=== PATIENT | female | born 1945 | race Caucasian/White ===

== ENCOUNTER 2017-12-28 11:09 | Observation (INO) | payer MEDICARE, OTHER ==
[2017-12-28] MEDS ORDERED: Acetaminophen 325 MG Tab PO PRN (11:40)
[2017-12-28] MEDS ORDERED: Docusate Sodium 100 MG Cap PO PRN (11:40)
[2017-12-28] MEDS ORDERED: Sodium Chloride 0.9% 10 ML Syringe FLUSH PRN (11:40)
[2017-12-28] MEDS ORDERED: cloNIDine 0.1 MG Tab PO STA (11:40)
[2017-12-28] MEDS ORDERED: Enoxaparin 30 MG/0.3 ML Syringe SUBCUT SCH (11:45)
[2017-12-28 12:29] LABS: CHLORIDE,CL 99 mEq/L (98-106); SODIUM,NA 139 mEq/L (136-145)
[2017-12-28] MEDS ORDERED: rOPINIRole 0.25 MG Tab PO SCH (14:00)
[2017-12-28] MEDS ORDERED: Albuterol 8 GM Inhaler INH PRN (14:12)
[2017-12-28] MEDS: ROPINIROLE 0.25 MG PO SCH (20:09)
[2017-12-29] MEDS ORDERED: LEVOTHYROXINE 100 MCG PO SCH (07:00)
[2017-12-29] MEDS: ROPINIROLE 0.25 MG PO SCH (07:47)
[2017-12-29 07:50] VITALS: BP 156/65
[2017-12-29] MEDS ORDERED: Calcium Carbonate 500 MG Tab.Chew PO SCH (08:00)
[2017-12-29] MEDS ORDERED: ASPIRIN 81 MG TAB **PTOM PO SCH (08:00)
[2017-12-29] MEDS ORDERED: amLODIPine 2.5 MG Tab PO SCH (08:00)
[2017-12-29] MEDS ORDERED: METOPROLOL SUCCINATE 12.5 MG PO SCH (08:00)
[2017-12-30] MEDS ORDERED: Enoxaparin 30 MG/0.3 ML Syringe SUBCUT SCH (08:00)
--- NOTE | 2018-01-01 21:05 | PCM.DCSUM1 ---
Discharge Summary - Hospital Course Free Text/Narrative:: Patient presented to clinic with complaints of high blood pressure. Had been experiencing a headache, monitoring her blood pressure and noted BP to be up over 170/100. She relates has been on multiple blood pressure medications over the years. Had an aortic valve replacement last year and since then, Metoprolol has not been keeping her blood pressure under control. She typically sees Dr. Bowman her director public service for monitoring of her heart valve and blood pressure. Patient denied chest pain or shortness of breath. Initial lab work up negative. Given dose of Clonidine on admit, which did improve her blood pressure and started on NOrvasc. Renal artery ultrasound ordered. - Discharge Data Discharge Date: 12/29/17 Discharge Disposition: Home, Self-Care 01 Condition: Good - Patient Summary/Data Complications: none Hospital Course: Patient has had good improvement of her blood pressure. Given Clonidine one dose and started on Norvasc. Headache resolved. This am, blood pressure 156/ 65. Lab work essentially negative. Renal ultrasound accomplished and negative. Is up and ambulatory without any chest pain or shortness of breath. Will discharge home on Norvasc in addition to her usual meds. Continue to monitor blood pressure and follow up with Lizz Thomas next week. - Patient Instructions Diet: Heart Healthy Diet Activity: As Tolerated - Discharge Plan Prescriptions/Med Rec: amLODIPine [Norvasc] 5 mg PO DAILY #30 tablet Home Medications: Home Meds Levothyroxine [Synthroid] 100 mcg PO ACBREAKFAST 07/31/15 [History] rOPINIRole HCl [Requip] 0.25 mg PO TID 07/31/15 [History] Albuterol Sulfate [Proair Respiclick] 90 mcg INH ASDIRECTED PRN 09/16/16 [ History] Aspirin [Halfprin] 81 mg PO DAILY 09/16/16 [History] Cetirizine [ZyrTEC] 10 mg PO BID 09/16/16 [History] Ascorbic Acid [Vitamin C] 1,000 mg PO BID 12/28/17 [History] Calcium Citrate 1 tab PO DAILY 12/28/17 [History] Cholecalciferol (Vitamin D3) [Vitamin D3] 1,000 unit PO BID 12/28/17 [History] [place] [[place]] 3 cap PO TID 12/28/17 [History] Kelp 660 mg PO BID 12/28/17 [History] Lactobacillus Acidophilus [Acidophilus] 1 each PO DAILY 12/28/17 [History] Magnesium Oxide [Magnesium] 500 mg PO DAILY 12/28/17 [History] Metoprolol Succinate [Toprol XL] 12.5 mg PO DAILY 12/28/17 [History] [place] Extract 75 mg PO TID 12/28/17 [History] Selenium 100 mcg PO BID 12/28/17 [History] amLODIPine [Norvasc] 5 mg PO DAILY #30 tablet 12/29/17 [Rx] Patient Handouts: Hypertension Referrals: Lizz Thomas PA-C [ED Midlevel Provider] - (follow up with Lizz Thomas in one week) - Discharge Summary/Plan Comment DC Time >30 min.: No Discharge Summary/Plan Comment: Discharge home on Norvasc 5 mg in addition to her usual meds. Follow up with Lizz Thomas next week. Continue to keep log of blood pressures - General Info Date of Service: 12/29/17 Admission Dx/Problem (Free Text: Hypertensive Urgency Functional Status: Reports: Pain Controlled, Tolerating Diet, Ambulating - Review of Systems General: Denies: Fever, Weakness, Fatigue HEENT: Reports: No Symptoms Pulmonary: Denies: Shortness of Breath, Cough Cardiovascular: Denies: Chest Pain, Edema, Lightheadedness Gastrointestinal: Denies: Abdominal Pain, Nausea, Vomiting Genitourinary: Reports: No Symptoms Musculoskeletal: Reports: No Symptoms Skin: Reports: No Symptoms Neurological: Denies: Headache - Patient Data Vitals - Most Recent: Last Vital Signs Temp 96.1 F 12/29/17 08:00 Pulse 64 12/29/17 08:00 Resp 18 12/29/17 08:00 BP 156/65 H 12/29/17 08:00 Pulse Ox 99 12/29/17 08:00 Weight - Most Recent: 169 lb Med Orders - Current: Current Medications Discontinued Medications Acetaminophen (Tylenol) 650 mg PO Q4H PRN PRN Reason: Pain (Mild 1-3)/fever Albuterol (Ventolin Hfa) 0 gm INH Q4H PRN PRN Reason: Shortness of Breath Amlodipine Besylate (Norvasc) 5 mg PO DAILY [facility] Last Admin: 12/29/17 07:48 Dose: 5 mg Calcium Carbonate/Glycine (Tums) 500 mg PO DAILY [facility] Last Admin: 12/29/17 07:49 Dose: 500 mg Clonidine HCl (Catapres) 0.1 mg PO NOW STA Stop: 12/28/17 11:41 Last Admin: 12/28/17 12:48 Dose: 0.1 mg Docusate Sodium (Colace) 100 mg PO BID PRN PRN Reason: Constipation Enoxaparin Sodium (Lovenox) 30 mg SUBCUT Q24H [facility] Last Admin: 12/28/17 14:27 Dose: 30 mg Enoxaparin Sodium (Lovenox) 30 mg SUBCUT DAILY@0800 [facility] Magnesium Oxide (Magnesium Oxide) 500 mg PO DAILY [facility] Last Admin: 12/29/17 07:50 Dose: 500 mg Aspirin 81 Mg Tab (Ptom) 1 each PO DAILY [facility] Last Admin: 12/29/17 07:49 Dose: 1 each Levothyroxine 100 (Mcg Tab Ptom) 1 each PO ACBREAKFAST [facility] Last Admin: 12/29/17 06:51 Dose: 1 each Metoprolol Succinate 12.5 Mg Tab Er Ptom 0.5 each PO DAILY [facility] Last Admin: 12/29/17 07:49 Dose: 0.5 each Ropinirole 0.25 Mg (Tab Ptom) 0.25 each PO TID [facility] Last Admin: 12/29/17 07:47 Dose: 0.25 each Ropinirole HCl (Requip) 0.25 mg PO TID [facility] Last Admin: 12/28/17 16:25 Dose: 0.25 mg Sodium Chloride (Saline Flush) 10 ml FLUSH ASDIRECTED PRN PRN Reason: Keep Vein Open - Exam General: Reports: Alert, Oriented HEENT: Reports: Mucous Membr. Moist/[place] Neck: Reports: Supple Lungs: Reports: Clear to Auscultation, Normal Respiratory Effort Cardiovascular: Reports: Regular Rate, Regular Rhythm, Other (click from valve) GI/Abdominal Exam: Normal Bowel Sounds, Soft, Non-Tender Extremities: Normal Inspection, No Pedal Edema Skin: Reports: Warm, Dry Neurological: Reports: No New Focal Deficit *Q Meaningful Use (DIS) - VTE *Q VTE Criteria *Q: - Stroke *Q Stroke Criteria *Q: - AMI *Q AMI Criteria *Q:
== END 2017-12-29 11:53 | disposition home or self-care (01) ==
LOC: CC.MS 11:09 → UNDOADMOB 11:09 → CC.MS 11:40
PROVIDERS: ADMIT Physician Assistant Medical; ATTEND Family Medicine
DX: I10 Essential (primary) hypertension (principal); E78.5 Hyperlipidemia, unspecified; E03.9 Hypothyroidism, unspecified; J45.909 Unspecified asthma, uncomplicated; Z79.82 Long term (current) use of aspirin; Z79.899 Other long term (current) drug therapy; Z88.2 Allergy status to sulfonamides; Z88.8 Allergy status to other drugs, medicaments and biological substances; Z72.0 Tobacco use; Z95.2 Presence of prosthetic heart valve
CPT/HCPCS: 36415; 80053; 81001; 82550; 84443; 84484; 85025; 93005; 93975; 96372; A9270 ×6; G0378 ×2; J1650

== ENCOUNTER 2019-06-05 13:50 | Emergency (ER) | payer MEDICARE, OTHER ==
[2019-06-05 14:16] LABS: CHLORIDE,CL 96 mEq/L (98-106); SODIUM,NA 131 mEq/L (136-145)
[2019-06-05] MEDS ORDERED: Metoprolol Tartrate 5 MG/5 ML SDV IVPUSH ONE (14:32)
[2019-06-05] MEDS ORDERED: Aspirin 300 MG Supp RECTAL SCH (15:45)
--- NOTE | 2019-06-05 15:49 | EDM.PDOC ---
ED HPI GENERAL MEDICAL PROBLEM - General Chief Complaint: Neuro Symptoms/Deficits Stated Complaint: left side facial droop Time Seen by Provider: 06/05/19 14:10 Source of Information: Reports: Patient, Family - History of Present Illness INITIAL COMMENTS - FREE TEXT/NARRATIVE: Gege is a pleasant 73 year old female who presents to the ED via private vehicle with with c/o left sided facial droop, slurred speech, and weakness. Unknown last well. reports he noticed she was very weak last night and then earlier this morning he noticed that she had facial droop and was slurring her speech more. He reports she struggled to get up from chair. This was "maybe" around 10:30. He was concerned about stroke, prompting ED visit. She reports she feels she is having to "work harder to speak." NIH 5. GCS 15. Denies any chest pain, shortness of breath, N/V/D, urinary symptoms, fever, chills, cough. Does report her legs feel very weak. Patient does not meet TPA criteria as she has unknown last well. Onset: Unknown/Unsure Associated Symptoms: Denies: Confusion, Chest Pain, Cough, cough w sputum, Diaphoresis, Fever/Chills, Headaches, Loss of Appetite, Malaise, Nausea/Vomiting , Rash, Seizure, Shortness of Breath, Syncope, Weakness - Related Data Allergies Allergy/AdvReac Type Severity Reaction Status Date / Time Sulfa (Sulfonamide Allergy Hives Verified 06/05/19 14:28 Antibiotics) thiopental sodium Allergy Shortness Verified 06/05/19 14:28 [From Pentothal] of Breath Home Meds: Home Meds Levothyroxine [Synthroid] 100 mcg PO ACBREAKFAST 07/31/15 [History] rOPINIRole HCl [Requip] 0.25 mg PO TID 07/31/15 [History] Albuterol Sulfate [Proair Respiclick] 90 mcg INH ASDIRECTED PRN 09/16/16 [ History] Aspirin [Halfprin] 81 mg PO DAILY 09/16/16 [History] Cetirizine [ZyrTEC] 10 mg PO BID 09/16/16 [History] Ascorbic Acid [Vitamin C] 1,000 mg PO BID 12/28/17 [History] Calcium Citrate 1 tab PO DAILY 12/28/17 [History] Cholecalciferol (Vitamin D3) [Vitamin D3] 1,000 unit PO BID 12/28/17 [History] [place] [[place]] 3 cap PO TID 12/28/17 [History] Kelp 660 mg PO BID 12/28/17 [History] Lactobacillus Acidophilus [Acidophilus] 1 each PO DAILY 12/28/17 [History] Magnesium Oxide [Magnesium] 500 mg PO DAILY 12/28/17 [History] [place] Extract 75 mg PO TID 12/28/17 [History] Selenium 100 mcg PO BID 12/28/17 [History] Metoprolol Tartrate 25 mg PO BID 06/05/19 [History] Past Medical History HEENT History: Reports: Impaired Vision Cardiovascular History: Reports: Heart Murmur, Hypertension, Other (See Below) Other Cardiovascular History: aortic valve stenosis; had a valve that was malfunctioning, "racing heart", patient requested that they do it through [facility] procedure; Respiratory History: Reports: Asthma Genitourinary History: Reports: Urinary Incontinence [employer]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: Musculoskeletal History: Reports: Arthritis Neurological History: Reports: CVA, Neuropathy, Peripheral, Other (See Below) Other Neuro History: Dec 2015 Psychiatric History: Reports: Anxiety, Depression Other Psychiatric History: says she has some depression; 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, 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, 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 [employer] Endocrine/Metabolic History: Reports: Hypothyroidism - Past Surgical History Cardiovascular Surgical History: Reports: Valve Replacement Respiratory Surgical History: Reports: None GI Surgical History: Reports: Appendectomy Female Surgical History: Reports: Section, Hysterectomy Social & Family History - Family History Family Medical History: Noncontributory - Tobacco Use Smoking Status *Q: Never Smoker - Caffeine Use Caffeine Use: Reports: None - Recreational Drug Use Recreational Drug Use: No ED ROS GENERAL - Review of Systems Review Of Systems: See Below Constitutional: Reports: Weakness. Denies: Fever, Malaise, Fatigue, Decreased Appetite HEENT: Denies: Vertigo, Vision Change Respiratory: Denies: Shortness of Breath, Wheezing, Pleuritic Chest Pain, Cough , Sputum Cardiovascular: Reports: Blood Pressure Problem, Lightheadedness. Denies: Chest Pain, Claudication, Dyspnea on Exertion, Edema, Orthopnea, Palpitations, PND, Syncope Endocrine: Denies: Fatigue GI/Abdominal: Reports: No Symptoms. Denies: Abdominal Pain, Diarrhea, Decreased Appetite, Hematochezia, Melena, Nausea, Vomiting : Reports: No Symptoms. Denies: Dysuria, Frequency, Urgency Musculoskeletal: Reports: No Symptoms Skin: Reports: No Symptoms Neurological: Reports: Dizziness, Numbness, Tingling, Trouble Speaking, Difficulty Walking, Weakness, Change in Speech, Gait Disturbance. Denies: Confusion, Headache Psychiatric: Reports: No Symptoms Hematologic/Lymphatic: Reports: No Symptoms Immunologic: Reports: No Symptoms ED EXAM, NEURO - Physical Exam Exam: See Below Exam Limited By: No Limitations General Appearance: Alert, WD/WN, No Apparent Distress Eye Exam: Bilateral Eye: EOMI, Normal Fundi, Normal Inspection, PERRL Throat/Mouth: Normal Inspection, Normal Lips, Normal Teeth, Normal Gums, Normal Oropharynx, Normal Voice, No Airway Compromise Head Exam: Atraumatic, Normocephalic Neck: Normal Inspection, Supple, Non-Tender, Full Range of Motion Respiratory/Chest: No Respiratory Distress, Lungs Clear, Normal Breath Sounds, No Accessory Muscle Use, Chest Non-Tender Cardiovascular: Normal Peripheral Pulses, Regular Rate, Rhythm, No Edema, No Gallop, No JVD, No Murmur, No Rub GI/Abdominal: Normal Bowel Sounds, Soft, Non-Tender, No Organomegaly, No Distention, No Abnormal Bruit, No Mass Neurological: Alert, Normal Mood/Affect, CN II-XII Intact, Oriented x 3, Abnormal Gait, Ataxia (LUE & LLE), Abnormal Finger to Nose (LUE), Abnormal Sensation (LUE & LLE), Abnormal Pin Prick (LUE & LLE), Difficulty Walking ( weakness). No: Abnormal Motor Back Exam: Normal Inspection, Full Range of Motion. No: CVA Tenderness (L), CVA Tenderness (R) Extremities: Normal Inspection, Normal Range of Motion, Non-Tender, No Pedal Edema, Normal Capillary Refill Psychiatric: Normal Affect, Normal Mood Skin Exam: Warm, Dry, Intact, Normal Color, No Rash Course - Vital Signs Last Recorded V/S: Last Vital Signs Temp 97.3 F 06/05/19 13:50 Pulse 60 06/05/19 16:38 Resp 16 06/05/19 16:38 BP 195/112 H 06/05/19 16:38 Pulse Ox 98 06/05/19 16:38 - Orders/Labs/Meds Orders: Active Orders 24 hr Category Date Time Status Communication Order [RC] ROUTINE Care 06/05/19 15:57 Active Head wo Cont [CT] Stat Exams 06/05/19 13:23 Taken Labs: Laboratory Tests 06/05/19 06/05/19 06/05/19 Range/Units 13:21 13:21 13:21 WBC 10.3 H (5.0-10.0) 10^3/uL RBC 4.52 (4.00-5.50) 10^6/uL Hgb 12.9 (12.0-16.0) g/dL Hct 39.6 (37.0-47.0) % MCV 87.6 (82.0-94.0) fL MCH 28.5 (27.0-32.0) pg MCHC 32.6 L (33.0-38.0) g/dL RDW Coeff of Bryson 13.2 (11.0-15.0) % Plt Count 322 (150-400) 10^3/uL Neut % (Auto) 78.0 (35-85) % Lymph % (Auto) 10.6 (10-55) % Angelina % (Auto) 7.8 (0-16) % Eos % (Auto) 2.8 (0-5) % Baso % (Auto) 0.8 (0-3) % Neut # (Auto) 8.05 H (1.80-7.00) 10^3/uL Lymph # (Auto) 1.10 (1.00-4.80) 10^3/uL Angelina # (Auto) 0.81 H (0.00-0.80) 10^3/uL Eos # (Auto) 0.29 (0.00-0.45) 10^3/uL Baso # (Auto) 0.08 10^3/uL PT 10.0 (9.7-12.3) SEC INR 0.97 (0.92-1.18) APTT 26.8 (23.2-32.3) SEC Sodium 131 L (136-145) mEq/L Potassium 4.4 (3.5-5.0) mEq/L Chloride 96 L (98-106) mEq/L Carbon Dioxide 29 (21-32) mmol/L BUN 10 (7-18) mg/dL Creatinine 0.5 L (0.6-1.0) mg/dL Est Cr Clr Drug Dosing TNP Estimated GFR (MDRD) > 60 (>=60) mL/min Glucose 99 (75-99) mg/dL Calcium 9.0 (8.4-10.1) mg/dL Creatine Kinase 49 (21-215) U/L Troponin I < 0.017 (0.00-0.06) ng/mL Meds: Medications Discontinued Medications Generic Name Dose Route Start Last Admin Trade Name Frankie PRN Reason Stop Dose Admin Aspirin 300 mg 06/05/19 15:45 06/05/19 16:02 Aspirin RECTAL 300 mg STAT FLASH Administration Metoprolol Tartrate 5 mg 06/05/19 14:32 06/05/19 14:46 Lopressor IVPUSH 06/05/19 14:33 5 mg ONETIME ONE Administration - Radiology Interpretation Free Text/Narrative:: No acute intracranial hemorrhage. Extensive patchy white matter hypoattenuation s present but nonspecific but most likely represents chronic microvascular change. Recommend MRI. CT Results Date: 06/05/19 CT Results Time: 15:27 - Re-Assessments/Exams Free Text/Narrative Re-Assessment/Exam: 06/05/19 15:[address] results with patient. Discussed despite being negative, I have strong suspicion for CVA and would highly recommend transfer to facility capable of MRI brain and neuro consult. 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 Consulted with [facility] hospitalist Dr. Barros who accepted patient for transfer. Discussed risks and benefits of transfer with patient. Risks of transfer include worsening of condition, , and MVA. Benefits of transfer include higher level of care, MRI capabilities, neuro consultation. Risks of nontransfer include worsening of condition, , and no MRI/neuro services. Benefits of nontransfer include convenience and familiar environment. Patient verbalized understanding and was agreeable to transfer. Discussed code status with patient. She wishes to be code level I. Departure - Departure Time of Disposition: 16:53 Disposition: DC/Tfer to [facility] 02 Condition: Fair Clinical Impression: CVA (cerebral vascular accident) Qualifiers: CVA mechanism: unspecified Qualified Code(s): I63.9 - Cerebral infarction, unspecified - Discharge Information *PRESCRIPTION DRUG MONITORING PROGRAM REVIEWED*: Not Applicable *COPY OF PRESCRIPTION DRUG MONITORING REPORT IN PATIENT KANDICE: Not Applicable Referrals: Lizz Thomas PA-C [Primary Care Provider] - Forms: ED Department Discharge - Problem List & Annotations (1) CVA (cerebral vascular accident) SNOMED Code(s): 286506251 Code(s): I63.9 - CEREBRAL INFARCTION, UNSPECIFIED Status: Acute Qualifiers: CVA mechanism: unspecified Qualified Code(s): I63.9 - Cerebral infarction, unspecified (2) Hypertension SNOMED Code(s): 64634558 Code(s): I10 - ESSENTIAL (PRIMARY) HYPERTENSION Status: Chronic Qualifiers: Hypertension type: essential hypertension Qualified Code(s): I10 - Essential (primary) hypertension - Problem List Review Problem List Initiated/Reviewed/Updated: Yes - My Orders Last 24 Hours: My Active Orders 06/05/19 13:23 Head wo Cont [CT] Stat 06/05/19 15:57 Communication Order [RC] ROUTINE - Assessment/Plan Last 24 Hours: My Active Orders 06/05/19 13:23 Head wo Cont [CT] Stat 06/05/19 15:57 Communication Order [RC] ROUTINE Plan: Patient's NIH remained 5 and GCS remained 15 throughout ED stay. BP did improve following Lopressor. VSS throughout stay. Did receive 300 mg aspirin via rectal suppository. Patient not candidate for TPA or other thinners due to unknown last well. Patient kept NPO due to slurred speech, facial droop, and dysphagia. CT negative for acute hemorrhage or ischemia. Given high clinical concern, will be transferred to [facility] via [facility] ALS services.
[2019-06-05 16:38] VITALS: BP 195/112; PULSE 60
== END 2019-06-05 16:53 ==
LOC: CC.ED 13:50
DX: I63.9 Cerebral infarction, unspecified (principal); I10 Essential (primary) hypertension; J45.909 Unspecified asthma, uncomplicated; F41.9 Anxiety disorder, unspecified; F32.9 Major depressive disorder, single episode, unspecified; E03.9 Hypothyroidism, unspecified; Z88.2 Allergy status to sulfonamides; Z88.4 Allergy status to anesthetic agent; Z79.899 Other long term (current) drug therapy; Z79.82 Long term (current) use of aspirin; Z86.73 Personal history of transient ischemic attack (TIA), and cerebral infarction without residual deficits
CPT/HCPCS: 36415; 70450; 80048; 82550; 84484; 85025; 85610; 85730; 93005; 96374; 99285; A9270; J3490; 93010

== ENCOUNTER 2019-07-22 17:17 | Emergency (ER) | payer MEDICARE, OTHER ==
[2019-07-22] MEDS ORDERED: Aspirin 81 MG Tab.Chew PO ONE (17:32)
[2019-07-22 18:01] LABS: CHLORIDE,CL 100 mEq/L (98-106); SODIUM,NA 137 mEq/L (136-145)
[2019-07-22 18:05] VITALS: BP 186/94; PULSE 88
--- NOTE | 2019-07-22 19:18 | EDM.PDOC ---
ED HPI GENERAL MEDICAL PROBLEM - General Chief Complaint: Chest Pain Stated Complaint: Chest Pain Time Seen by Provider: 07/22/19 18:02 Source of Information: Reports: Patient History Limitations: Reports: No Limitations - History of Present Illness INITIAL COMMENTS - FREE TEXT/NARRATIVE: This patient is a 73 year old female that presents to the ER. Patient reports that since Tuesday she has had some mild congestion, drainage, productive cough. She reports that on she was seen by her PCP, dx with bronchitis , placed on abx. She reports then Tuesday she bent backwards while on her walker trying to grab something and then felt like she pulled a muscle to her right chest. The patient reports it hurt to take big deep breaths. She reports then yesterday she was coughing and then her right and central chest hurt when she coughs or takes big deep breaths now. Patient reports she has felt chills. The patient denies owen, dizziness, n, v, d, measured fever, shortness of breath, neck pain, neck stiffness, abd pain, urinary/bowel changes. Onset Date: 07/18/19 Duration: Day(s): (4) Location: Reports: Chest Severity: Mild Improves with: Reports: None Worsens with: Reports: Breathing (taking big deep breaths) Associated Symptoms: Reports: Chest Pain, Cough, cough w sputum, Fever/Chills. Denies: Confusion, Diaphoresis, Headaches, Loss of Appetite, Malaise, Rash, Seizure, Shortness of Breath, Syncope, Weakness - Related Data Allergies Allergy/AdvReac Type Severity Reaction Status Date / Time Sulfa (Sulfonamide Allergy Hives Verified 07/22/19 17:46 Antibiotics) thiopental sodium Allergy Shortness Verified 07/22/19 17:46 [From Pentothal] of Breath Home Meds: Home Meds Levothyroxine [Synthroid] 100 mcg PO ACBREAKFAST 07/31/15 [History] rOPINIRole HCl [Requip] 0.25 mg PO TID 07/31/15 [History] Albuterol Sulfate [Proair Respiclick] 90 mcg INH ASDIRECTED PRN 09/16/16 [ History] Aspirin [Halfprin] 81 mg PO DAILY 09/16/16 [History] Cetirizine [ZyrTEC] 10 mg PO BID 09/16/16 [History] Ascorbic Acid [Vitamin C] 1,000 mg PO BID 12/28/17 [History] Calcium Citrate 1 tab PO DAILY 12/28/17 [History] Cholecalciferol (Vitamin D3) [Vitamin D3] 1,000 unit PO BID 12/28/17 [History] Caspar [Caspar Reeves] 3 cap PO TID 12/28/17 [History] Kelp 660 mg PO BID 12/28/17 [History] Lactobacillus Acidophilus [Acidophilus] 1 each PO DAILY 12/28/17 [History] Magnesium Oxide [Magnesium] 500 mg PO DAILY 12/28/17 [History] [place] [address] Extract 75 mg PO TID 12/28/17 [History] Selenium 100 mcg PO BID 12/28/17 [History] Metoprolol Tartrate 50 mg PO BID 06/05/19 [History] Cefuroxime [Ceftin] 250 mg PO BID 07/22/19 [History] Cilostazol 100 mg PO BID 07/22/19 [History] Past Medical History HEENT History: Reports: Impaired Vision Cardiovascular History: Reports: Heart Murmur, Hypertension, Other (See Below) Other Cardiovascular History: aortic valve stenosis; had a valve that was malfunctioning, "racing heart", patient requested that they do it through MELANIE procedure; Respiratory History: Reports: Asthma Other Respiratory History: recent pneumonia dx by mateus kenyon at clinic Genitourinary History: Reports: Urinary Incontinence 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: Reports: Musculoskeletal History: Reports: Arthritis Neurological History: Reports: CVA, Neuropathy, Peripheral, Other (See Below) Other Neuro History: Dec 2015 Psychiatric History: Reports: Anxiety, Depression Other Psychiatric History: says she has some depression; 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, 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, 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 Denies: Fever, Weakness, Fatigue HEENT: Reports: Rhinitis, Sinus Problem Respiratory: Reports: Pleuritic Chest Pain, Cough, Sputum. Denies: Shortness of Breath, Wheezing Cardiovascular: Reports: No Symptoms. Denies: Chest Pain, Dyspnea on Exertion, Edema, Lightheadedness, Palpitations, Syncope Endocrine: Reports: No Symptoms GI/Abdominal: Reports: No Symptoms : Reports: No Symptoms Musculoskeletal: Reports: No Symptoms Skin: Reports: No Symptoms Neurological: Reports: No Symptoms Psychiatric: Reports: No Symptoms Hematologic/Lymphatic: Reports: No Symptoms Immunologic: Reports: No Symptoms ED EXAM, GENERAL - Physical Exam Exam: See Below Exam Limited By: No Limitations General Appearance: Alert, WD/WN, No Apparent Distress Eye Exam: Bilateral Eye: Normal Inspection, PERRL Ears: Normal External Exam, Normal Canal, Hearing Grossly Normal, Normal TMs Ear Exam: Bilateral Ear: Auricle Normal, Canal Normal, TM normal Nose: Normal Inspection, Normal Mucosa, No Blood Throat/Mouth: Normal Inspection, Normal Lips, Normal Teeth, Normal Gums, Normal Oropharynx, Normal Voice, No Airway Compromise Head: Atraumatic, Normocephalic Neck: Normal Inspection, Supple, Non-Tender, Full Range of Motion Respiratory/Chest: No Respiratory Distress, Lungs Clear, Normal Breath Sounds, No Accessory Muscle Use, Other (mild tenderness right lateral chest. Easily manipulated and made worse with palpation or having patient take big deep breath or when she coughs.). No: Decreased Breath Sounds, Crackles, Rales, Rhonchi, Wheezing, Stridor, Pleural Rub, Accessory Muscle Use, Retractions, Splinting, Prolonged Expiration Cardiovascular: Normal Peripheral Pulses, Regular Rate, Rhythm, No Edema, No Gallop, No JVD, No Murmur, No Rub Peripheral Pulses: 2+: Radial (L), Radial (R), Posterior Tibial (L), Posterior Tibial (R) GI/Abdominal: Normal Bowel Sounds, Soft, Non-Tender, No Organomegaly, No Distention, No Abnormal Bruit, No Mass (Female) Exam: Deferred Rectal (Female) Exam: Deferred Back Exam: Normal Inspection, Full Range of Motion Extremities: Normal Inspection, Normal Range of Motion, Non-Tender, No Pedal Edema, Normal Capillary Refill Neurological: Alert, Oriented, Normal Cognition, Normal Gait, No Motor/Sensory Deficits Psychiatric: Normal Affect, Normal Mood Skin Exam: Warm, Dry, Intact, Normal Color, No Rash Lymphatic: No Adenopathy EKG INTERPRETATION EKG Date: 07/22/19 Time: 17:17 Rate (Beats/Min): 88 QRS: LBBB Comparison: No Change (May 2019) Course - Vital Signs Last Recorded V/S: Last Vital Signs Temp 98.8 F 07/22/19 17:19 Pulse 88 07/22/19 18:04 Resp 14 07/22/19 18:04 BP 186/94 H 07/22/19 18:04 Pulse Ox 98 07/22/19 18:04 - Orders/Labs/Meds Orders: Active Orders 24 hr Category Date Time Status Chest 2V [CR] Stat Exams 07/22/19 17:32 Taken Labs: Laboratory Tests 07/22/19 07/22/19 07/22/19 Range/Units 17:32 17:32 17:41 WBC 7.5 (5.0-10.0) 10^3/uL RBC 4.27 (4.00-5.50) 10^6/uL Hgb 12.2 (12.0-16.0) g/dL Hct 37.7 (37.0-47.0) % MCV 88.3 (82.0-94.0) fL MCH 28.6 (27.0-32.0) pg MCHC 32.4 L (33.0-38.0) g/dL RDW Coeff of Bryson 13.6 (11.0-15.0) % Plt Count 340 (150-400) 10^3/uL Neut % (Auto) 65.4 (35-85) % Lymph % (Auto) 19.2 (10-55) % [place] % (Auto) 9.5 (0-16) % Eos % (Auto) 5.2 H (0-5) % Baso % (Auto) 0.7 (0-3) % Neut # (Auto) 4.91 (1.80-7.00) 10^3/uL Lymph # (Auto) 1.44 (1.00-4.80) 10^3/uL [place] # (Auto) 0.71 (0.00-0.80) 10^3/uL Eos # (Auto) 0.39 (0.00-0.45) 10^3/uL Baso # (Auto) 0.05 10^3/uL PT 9.7 (9.7-12.3) SEC INR 0.94 (0.92-1.18) Sodium 137 (136-145) mEq/L Potassium 4.4 (3.5-5.0) mEq/L Chloride 100 (98-106) mEq/L Carbon Dioxide 30 (21-32) mmol/L BUN 6 L (7-18) mg/dL Creatinine 0.6 (0.6-1.0) mg/dL Est Cr Clr Drug Dosing 79.34 mL/min Estimated GFR (MDRD) > 60 (>=60) mL/min Glucose 102 H (75-99) mg/dL Calcium 9.6 (8.4-10.1) mg/dL Magnesium 2.3 (1.8-2.4) mg/dL Total Bilirubin 0.2 (0.0-1.0) mg/dL AST 14 L (15-37) U/L ALT 9 L (12-78) U/L Alkaline Phosphatase 94 (46-116) U/L Troponin I < 0.017 (0.00-0.06) ng/mL C-Reactive Protein 2.4 H (0.2-0.8) mg/dL Total Protein 7.1 (6.4-8.2) g/dL Albumin 3.3 L (3.4-5.0) g/dL Meds: Medications Discontinued Medications Generic Name Dose Route Start Last Admin Trade Name Freq PRN Reason Stop Dose Admin Aspirin 324 mg 07/22/19 17:32 07/22/19 17:36 Aspirin PO 07/22/19 17:33 324 mg ONETIME ONE Administration - Radiology Interpretation Free Text/Narrative:: CXR: No infiltraets, no pneumo, no hemothorax. - Re-Assessments/Exams Free Text/Narrative Re-Assessment/Exam: 07/22/19 19:34 Patient labs unremarkable, except mild elevation of CRP. Discussed with patient possibility to admit. However, patient reports that she feels fine to go home. She would like to go home and followup with PCP this week. Educated when to return. Departure - Departure Time of Disposition: 19:16 Disposition: Home, Self-Care 01 Condition: Good Clinical Impression: Acute bronchitis Qualifiers: Bronchitis organism: unspecified organism Qualified Code(s): J20.9 - Acute bronchitis, unspecified - Discharge Information *PRESCRIPTION DRUG MONITORING PROGRAM REVIEWED*: Not Applicable *COPY OF PRESCRIPTION DRUG MONITORING REPORT IN PATIENT KANDICE: Not Applicable Referrals: Mateus Kenyon PA-C [Primary Care Provider] - Forms: ED Department Discharge Additional Instructions: Followup with your primary care provider this week Return to the ER for worsening of condition or any emergent concerns Continue medications that were prescribed - My Orders Last 24 Hours: My Active Orders 07/22/19 17:32 Chest 2V [CR] Stat - Assessment/Plan Last 24 Hours: My Active Orders 07/22/19 17:32 Chest 2V [CR] Stat Plan: PLEASE SEE RN NOTE FOR PFHS.
== END 2019-07-22 19:26 | disposition home or self-care (01) ==
LOC: CC.ED 17:17
DX: J20.9 Acute bronchitis, unspecified (principal); I10 Essential (primary) hypertension; J45.909 Unspecified asthma, uncomplicated; E03.9 Hypothyroidism, unspecified; M19.90 Unspecified osteoarthritis, unspecified site; Z88.2 Allergy status to sulfonamides; Z88.8 Allergy status to other drugs, medicaments and biological substances; Z79.82 Long term (current) use of aspirin; Z79.899 Other long term (current) drug therapy
CPT/HCPCS: 36415; 71046; 80053; 83735; 84484; 85025; 85610; 86140; 93005; 99285-25; A9270-GY

== ENCOUNTER 2019-10-01 00:30 | Emergency (ER) | payer MEDICARE, OTHER ==
--- NOTE | 2019-10-01 01:15 | EDM.PDOC ---
ED HPI GENERAL MEDICAL PROBLEM - General Chief Complaint: General Stated Complaint: tachycardia Time Seen by Provider: 10/01/19 01:00 Source of Information: Reports: Patient, Family History Limitations: Reports: No Limitations - History of Present Illness INITIAL COMMENTS - FREE TEXT/NARRATIVE: pt to the ED with c/o cp off and on since , was seen in the clinic on with a cough and "coughing up blood", she was also told that her HGB was low but not low enough to need any blood. the pt also c/o low back and right hip pain, no abd pain, her last BM this am was dark brown, not black or tarry and did not have any blood in it, she has not coughed up blood since . she denies any ear, nose or throat sx, she denies any unusual neck pain or stiffness, no sob or LAO, no abd pain, no fever or chills Onset: Gradual Duration: Day(s): (sx x 4 days) Location: Reports: Chest, Back, Other (right hip) Quality: Reports: Ache Severity: Moderate Improves with: Reports: None Worsens with: Reports: None Associated Symptoms: Reports: Chest Pain, Weakness. 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 below) (none) - Related Data Allergies Allergy/AdvReac Type Severity Reaction Status Date / Time Sulfa (Sulfonamide Allergy Hives Verified 10/01/19 01:13 Antibiotics) thiopental sodium Allergy Shortness Verified 10/01/19 01:13 [From Pentothal] of Breath Home Meds: Home Meds Levothyroxine [Synthroid] 100 mcg PO ACBREAKFAST 07/31/15 [History] rOPINIRole HCl [Requip] 0.25 mg PO TID 07/31/15 [History] Albuterol Sulfate [Proair Respiclick] 90 mcg INH ASDIRECTED PRN 09/16/16 [ History] Aspirin [Halfprin] 81 mg PO DAILY 09/16/16 [History] Ascorbic Acid [Vitamin C] 1,000 mg PO BID 12/28/17 [History] Cholecalciferol (Vitamin D3) [Vitamin D3] 1,000 unit PO BID 12/28/17 [History] [place]el [Knobel Reeves] 3 cap PO TID 12/28/17 [History] Kelp 660 mg PO BID 12/28/17 [History] Lactobacillus Acidophilus [Acidophilus] 1 each PO BID 12/28/17 [History] [place] Extract 75 mg PO TID 12/28/17 [History] Metoprolol Tartrate 50 mg PO BID 06/05/19 [History] Cilostazol 100 mg PO BID 07/22/19 [History] Fexofenadine [Linda] 30 mg PO DAILY 10/01/19 [History] Past Medical History HEENT History: Reports: Impaired Vision Cardiovascular History: Reports: Heart Murmur, Hypertension, Other (See Below) Other Cardiovascular History: aortic valve stenosis; had a valve that was malfunctioning, "racing heart", patient requested that they do it through [facility] procedure; Respiratory History: Reports: Asthma Other Respiratory History: recent pneumonia dx by mateus kenyon at clinic Genitourinary History: Reports: Urinary Incontinence 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: Musculoskeletal History: Reports: Arthritis Neurological History: Reports: CVA, Neuropathy, Peripheral, Other (See Below) Other Neuro History: Dec 2015 Psychiatric History: Reports: Anxiety, Depression Other Psychiatric History: says she has some depression; 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 Denies: Fever, Chills, Diaphoresis HEENT: Reports: No Symptoms. Denies: Ear Pain, Nose Pain, Throat Pain Respiratory: Reports: No Symptoms. Denies: Shortness of Breath Cardiovascular: Reports: Chest Pain. Denies: Dyspnea on Exertion, Edema, Lightheadedness, Orthopnea Endocrine: Reports: No Symptoms GI/Abdominal: Reports: No Symptoms. Denies: Abdominal Pain, Nausea, Vomiting : Reports: No Symptoms. Denies: Dysuria, Frequency, Hematuria, Pain, Urgency Musculoskeletal: Reports: Back Pain, Joint Pain (right hip pain). Denies: Neck Pain Skin: Reports: No Symptoms. Denies: Bruising, Rash, Erythema Neurological: Reports: No Symptoms, Weakness. Denies: Confusion, Dizziness, Headache, Syncope, Trouble Speaking, Change in Speech, Gait Disturbance Psychiatric: Reports: No Symptoms ED EXAM, GENERAL - Physical Exam Exam: See Below Exam Limited By: No Limitations General Appearance: Alert, No Apparent Distress Ears: Normal External Exam Nose: Normal Inspection Throat/Mouth: Normal Inspection, Normal Lips, Normal Voice, No Airway Compromise Head: Atraumatic, Normocephalic Neck: Normal Inspection, Supple, Non-Tender, Full Range of Motion Respiratory/Chest: No Respiratory Distress, Lungs Clear, Normal Breath Sounds, Chest Non-Tender Cardiovascular: Regular Rate, Rhythm, Systolic Murmur, Other (DP pulses were not palpated, the left is weak with a doppler, can not hear the right with a doppler, PT are both noted with a doppler) Peripheral Pulses: 2+: Radial (L), Radial (R) GI/Abdominal: Soft, Non-Tender, No Distention, No Abnormal Bruit Back Exam: Normal Inspection, Full Range of Motion Extremities: Normal Inspection, Normal Range of Motion, Non-Tender, No Pedal Edema, Normal Capillary Refill Neurological: Alert, Oriented, Normal Cognition, Normal Gait, No Motor/Sensory Deficits Psychiatric: Normal Affect, Normal Mood Skin Exam: Warm, Dry, Intact, Pallor. No: Normal Color, Ecchymosis EKG INTERPRETATION EKG Date: 10/01/19 Time: 00:48 Rhythm: Other (SR) P-Wave: Present QRS: LBBB ST-T: Normal QT: Normal EKG Interpretation Comments: LBBB, no STEMI criteria by Luis Fernando Fernandez, this is a poor EKG with a wondering baseline, the RN did attempt several times and this was the best tracing. Course - Vital Signs Text/Narrative:: 0158 the pts H/H came back low, HGB is 6, she has lost 4gms in 4 days, stool hemacolt is positive for blood, the stool is black, not brown as the pt advised , the pt has later advised that she was set up on for an EGD in [place] for today. 0144 I called and spoke to the transfer center at [facility] and at 0144 I spoke with the hospitalist DR. Haider who has accepted the pt in transfer. the pt is given Protonix 80mg IVP and started on a Protonix drip. she has been typed and crossed to give 2 units of PRBC. The pt has been advised of the R/B of transfer with the risk being worsening condition, MVC and , the benefits will be evaluation and treatment by international marketing executive and or surgeon or both not available here at [place]. 0206 the general chemistries, Trop, PT/PTT are essentially normal, see the labs for details. CXR is neg, radiology reading is pending. EMS has been called for transfer, see the nursing notes for details of the transfer. Last Recorded V/S: Last Vital Signs Temp 36.6 C 10/01/19 01:35 Pulse 82 10/01/19 01:35 Resp 16 10/01/19 01:35 BP 141/68 H 10/01/19 01:35 Pulse Ox 98 10/01/19 01:35 - Orders/Labs/Meds Orders: Active Orders 24 hr Category Date Time Status CXR [Chest 2V] [CR] Stat Exams 10/01/19 01:07 Taken OCCULT BLOOD SCREEN [OP] Stat Lab 10/01/19 01:39 Ordered RED BLOOD CELLS LP [BBK] Stat Lab 10/01/19 01:29 Ordered TYPE AND SCREEN [BBK] Stat Lab 10/01/19 01:29 Ordered Pantoprazole [ProTONIX IV] 80 mg Med 10/01/19 02:00 Active Sodium Chloride 0.9% [Normal Saline] 100 ml IV .CONTINUOUS Sodium Chloride 0.9% [Normal Saline] 250 ml Med 10/01/19 01:30 Active IV ASDIRECTED Peripheral IV Insertion Adult [OM.PC] Urgent Oth 10/01/19 01:29 Ordered Transfuse PRBC [Transfuse Red Blood Cells] [COMM] Stat Oth 10/01/19 01:29 Ordered Medication Orders Sodium Chloride (Normal Saline) 250 mls @ 50 mls/hr IV ASDIRECTED FLASH Last Admin: 10/01/19 01:51 Dose: 50 mls/hr Pantoprazole Sodium 80 mg/ (Sodium Chloride) 100 mls @ 10 mls/hr IV .CONTINUOUS FLASH Labs: Laboratory Tests 11/18/19 11/18/19 11/18/19 Range/Units 01:20 01:20 01:20 WBC 6.0 (5.0-10.0) 10^3/uL RBC 2.15 L (4.00-5.50) 10^6/uL Hgb 6.3 L* (12.0-16.0) g/dL Hct 19.4 L* (37.0-47.0) % MCV 90.2 (82.0-94.0) fL MCH 29.3 (27.0-32.0) pg MCHC 32.5 L (33.0-38.0) g/dL RDW Coeff of Bryson 13.3 (11.0-15.0) % Plt Count 239 (150-400) 10^3/uL Neut % (Auto) 65.2 (35-85) % Lymph % (Auto) 22.3 (10-55) % [place] % (Auto) 9.8 (0-16) % Eos % (Auto) 2.0 (0-5) % Baso % (Auto) 0.7 (0-3) % Neut # (Auto) 3.91 (1.80-7.00) 10^3/uL Lymph # (Auto) 1.34 (1.00-4.80) 10^3/uL [place] # (Auto) 0.59 (0.00-0.80) 10^3/uL Eos # (Auto) 0.12 (0.00-0.45) 10^3/uL Baso # (Auto) 0.04 10^3/uL PT 10.0 (9.7-12.3) SEC INR 0.97 (0.92-1.18) APTT 22.2 L (23.2-32.3) SEC Sodium 135 L (136-145) mEq/L Potassium 4.4 (3.5-5.0) mEq/L Chloride 100 (98-106) mEq/L Carbon Dioxide 28 (21-32) mmol/L BUN 10 D (7-18) mg/dL Creatinine 0.5 L (0.6-1.0) mg/dL Est Cr Clr Drug Dosing 95.21 mL/min Estimated GFR (MDRD) > 60 (>=60) mL/min Glucose 111 H (75-99) mg/dL Calcium 8.3 L (8.4-10.1) mg/dL Total Bilirubin 0.5 (0.0-1.0) mg/dL AST 14 L (15-37) U/L ALT 11 L (12-78) U/L Alkaline Phosphatase 62 (46-116) U/L Troponin I < 0.017 (0.00-0.06) ng/mL Total Protein 5.4 L (6.4-8.2) g/dL Albumin 2.6 L (3.4-5.0) g/dL Gel Antibody Screen Crossmatch 10/01/19 Range/Units 01:29 WBC (5.0-10.0) 10^3/uL RBC (4.00-5.50) 10^6/uL Hgb (12.0-16.0) g/dL Hct (37.0-47.0) % MCV (82.0-94.0) fL MCH (27.0-32.0) pg MCHC (33.0-38.0) g/dL RDW Coeff of Bryson (11.0-15.0) % Plt Count (150-400) 10^3/uL Neut % (Auto) (35-85) % Lymph % (Auto) (10-55) % [place] % (Auto) (0-16) % Eos % (Auto) (0-5) % Baso % (Auto) (0-3) % Neut # (Auto) (1.80-7.00) 10^3/uL Lymph # (Auto) (1.00-4.80) 10^3/uL [place] # (Auto) (0.00-0.80) 10^3/uL Eos # (Auto) (0.00-0.45) 10^3/uL Baso # (Auto) 10^3/uL PT (9.7-12.3) SEC INR (0.92-1.18) APTT (23.2-32.3) SEC Sodium (136-145) mEq/L Potassium (3.5-5.0) mEq/L Chloride (98-106) mEq/L Carbon Dioxide (21-32) mmol/L BUN (7-18) mg/dL Creatinine (0.6-1.0) mg/dL Est Cr Clr Drug Dosing mL/min Estimated GFR (MDRD) (>=60) mL/min Glucose (75-99) mg/dL Calcium (8.4-10.1) mg/dL Total Bilirubin (0.0-1.0) mg/dL AST (15-37) U/L ALT (12-78) U/L Alkaline Phosphatase (46-116) U/L Troponin I (0.00-0.06) ng/mL Total Protein (6.4-8.2) g/dL Albumin (3.4-5.0) g/dL Gel Antibody Screen Negative Crossmatch See Detail Meds: Medications Generic Name Dose Route Start Last Admin Trade Name Freq PRN Reason Stop Dose Admin Sodium Chloride 250 mls @ 50 mls/hr 10/01/19 01:30 10/01/19 01:51 Normal Saline IV 50 mls/hr ASDIRECTED FLASH Administration Pantoprazole Sodium 80 mg/ 100 mls @ 10 mls/hr 10/01/19 02:00 Sodium Chloride IV .CONTINUOUS FLASH Discontinued Medications Generic Name Dose Route Start Last Admin Trade Name Freq PRN Reason Stop Dose Admin Pantoprazole Sodium 80 mg 10/01/19 01:55 Protonix Iv IVPUSH 10/01/19 01:56 ONETIME ONE - Radiology Interpretation Free Text/Narrative:: CXR neg Departure - Departure Time of Disposition: 02:10 Disposition: DC/Tfer to Acute Hospital 02 Condition: Good Clinical Impression: Upper GI bleed, Anemia, Chest pain - Discharge Information *PRESCRIPTION DRUG MONITORING PROGRAM REVIEWED*: Not Applicable *COPY OF PRESCRIPTION DRUG MONITORING REPORT IN PATIENT KANDICE: Not Applicable Referrals: Mateus Kenyon PA-C [Primary Care Provider] - Forms: ED Department Discharge - Problem List & Annotations (1) Anemia SNOMED Code(s): 644485982 Code(s): D64.9 - ANEMIA, UNSPECIFIED Status: Acute Priority: High Current Visit: Yes Qualifiers: Anemia type: unspecified type Qualified Code(s): D64.9 - Anemia, unspecified (2) Chest pain SNOMED Code(s): 40153936 Code(s): R07.9 - CHEST PAIN, UNSPECIFIED Status: Acute Priority: High Current Visit: Yes Qualifiers: Chest pain type: unspecified Qualified Code(s): R07.9 - Chest pain, unspecified (3) Upper GI bleed SNOMED Code(s): 09749463 Code(s): K92.2 - GASTROINTESTINAL HEMORRHAGE, UNSPECIFIED Status: Acute Priority: High Current Visit: Yes - Problem List Review Problem List Initiated/Reviewed/Updated: Yes - My Orders Last 24 Hours: My Active Orders 10/01/19 01:07 CXR [Chest 2V] [CR] Stat 10/01/19 01:29 RED BLOOD CELLS LP [BBK] Stat TYPE AND SCREEN [BBK] Stat Peripheral IV Insertion Adult [OM.PC] Urgent Transfuse PRBC [Transfuse Red Blood Cells] [COMM] Stat 10/01/19 01:30 Sodium Chloride 0.9% [Normal Saline] 250 ml IV ASDIRECTED 10/01/19 01:39 OCCULT BLOOD SCREEN [OP] Stat 10/01/19 02:00 Pantoprazole [ProTONIX IV] 80 mg Sodium Chloride 0.9% [Normal Saline] 100 ml IV .CONTINUOUS - Assessment/Plan Last 24 Hours: My Active Orders 10/01/19 01:07 CXR [Chest 2V] [CR] Stat 10/01/19 01:29 RED BLOOD CELLS LP [BBK] Stat TYPE AND SCREEN [BBK] Stat Peripheral IV Insertion Adult [OM.PC] Urgent Transfuse PRBC [Transfuse Red Blood Cells] [COMM] Stat 10/01/19 01:30 Sodium Chloride 0.9% [Normal Saline] 250 ml IV ASDIRECTED 10/01/19 01:39 OCCULT BLOOD SCREEN [OP] Stat 10/01/19 02:00 Pantoprazole [ProTONIX IV] 80 mg Sodium Chloride 0.9% [Normal Saline] 100 ml IV .CONTINUOUS Assessment:: no ASA given secondary to GI bleeding and severe anemia Plan: as above
[2019-10-01] MEDS ORDERED: Sodium Chloride 0.9% 250 ML IV SCH (01:30)
[2019-10-01 01:38] LABS: CHLORIDE,CL 100 mEq/L (98-106)
[2019-10-01] MEDS ORDERED: Pantoprazole 40 MG Vial IVPUSH ONE (01:55)
[2019-10-01 01:56] LABS: SODIUM,NA 135 mEq/L (136-145)
[2019-10-01] MEDS ORDERED: Pantoprazole 80 MG in Sodium Chloride 0.9% 100 ML IV SCH (02:00)
[2019-10-01] MEDS ORDERED: Sodium Chloride 0.9% 250 ML ONE (02:40)
[2019-10-01 03:33] VITALS: BP 154/70; PULSE 83
== END 2019-10-01 03:48 ==
LOC: CC.ED 00:30
DX: K92.2 Gastrointestinal hemorrhage, unspecified (principal); D64.9 Anemia, unspecified; R07.9 Chest pain, unspecified; I10 Essential (primary) hypertension; E03.9 Hypothyroidism, unspecified; J45.909 Unspecified asthma, uncomplicated; Z86.73 Personal history of transient ischemic attack (TIA), and cerebral infarction without residual deficits; Z79.82 Long term (current) use of aspirin; Z79.890 Hormone replacement therapy; Z79.899 Other long term (current) drug therapy; Z88.2 Allergy status to sulfonamides; Z88.8 Allergy status to other drugs, medicaments and biological substances
CPT/HCPCS: 36415; 36430; 71046; 80053; 82270; 84484; 85025; 85610; 85730; 86850; 86900; 86901; 86920; 86922; 93005; 96365; 96366; 96376; 99285; C9113; J7030; J7050; P9016; 93010; 99284

== ENCOUNTER 2020-01-05 12:05 | Emergency (ER) | payer OTHER, MEDICARE ==
[2020-01-05] MEDS ORDERED: Acetaminophen/oxyCODONE 325-5 MG Tab PO ONE ×2 (12:06)
--- NOTE | 2020-01-05 12:14 | EDM.PDOC ---
ED HPI GENERAL MEDICAL PROBLEM - General Chief Complaint: General Stated Complaint: Rectal pain/ R. hip pain Time Seen by Provider: 01/05/20 12:05 Source of Information: Reports: Patient, EMS, Family History Limitations: Reports: No Limitations - History of Present Illness INITIAL COMMENTS - FREE TEXT/NARRATIVE: Patient to the emergency department by EMS where she fell 2 weeks ago and was seen after the fall. The patient advised that she had just climbed down some steps and turned around to get her walker when she slipped and fell. The patient had an x-ray that she advises that was normal at that point. The patient advises that she has pain in the right hip and pelvis area. The patient also complains of some lower back pain. She said the lower back pain is actually better than 2 weeks ago. The patient denies any numbness or tingling she denies any headache she denies any abdominal pain there is no nausea no vomiting she is had no diarrhea no constipation no UTI type symptoms Onset: Gradual Duration: Week(s): (2 weeks ago) Location: Reports: Pelvis (Right hip and pelvis) Quality: Reports: Ache Severity: Severe Improves with: Reports: None Worsens with: Reports: Movement Context: Reports: Trauma Associated Symptoms: Denies: Chest Pain, Cough, Fever/Chills, Nausea/Vomiting, Rash, Shortness of Breath Treatments EDUCATION GENERAL MANAGER: Reports: Other (see below) (Tramadol) Right Hip Pain Score (Numeric/FACES): 10 - Related Data Allergies Allergy/AdvReac Type Severity Reaction Status Date / Time Sulfa (Sulfonamide Allergy Hives Verified 01/05/20 12:19 Antibiotics) thiopental sodium Allergy Shortness Verified 01/05/20 12:19 [From Pentothal] of Breath Home Meds: Home Meds Levothyroxine [Synthroid] 100 mcg PO ACBREAKFAST 07/31/15 [History] rOPINIRole HCl [Requip] 0.25 mg PO TID 07/31/15 [History] Albuterol Sulfate [Proair Respiclick] 90 mcg INH ASDIRECTED PRN 09/16/16 [ History] Aspirin [Halfprin] 81 mg PO DAILY 09/16/16 [History] Ascorbic Acid [Vitamin C] 1,000 mg PO BID 12/28/17 [History] Cholecalciferol (Vitamin D3) [Vitamin D3] 1,000 unit PO BID 12/28/17 [History] Lititz [Lititz Reeves] 3 cap PO TID 12/28/17 [History] Kelp 660 mg PO BID 12/28/17 [History] Lactobacillus Acidophilus [Acidophilus] 1 each PO BID 12/28/17 [History] [place] Extract 75 mg PO TID 12/28/17 [History] Metoprolol Tartrate 50 mg PO BID 06/05/19 [History] cilostazoL [Cilostazol] 100 mg PO BID 07/22/19 [History] Fexofenadine [Linda] 30 mg PO DAILY 10/01/19 [History] Past Medical History HEENT History: Reports: Impaired Vision Cardiovascular History: Reports: Heart Murmur, Hypertension, Other (See Below) Other Cardiovascular History: aortic valve stenosis; had a valve that was malfunctioning, "racing heart", patient requested that they do it through [facility] procedure; Respiratory History: Reports: Asthma Other Respiratory History: recent pneumonia dx by [facility] Genitourinary History: Reports: Urinary Incontinence ISO COORDINATOR History: Reports: Musculoskeletal History: Reports: Arthritis Neurological History: Reports: CVA, Neuropathy, Peripheral, Other (See Below) Other Neuro History: Dec 2015 Psychiatric History: Reports: Anxiety, Depression Other Psychiatric History: says she has some depression; 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, 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 Denies: Fever, Chills HEENT: Reports: No Symptoms Respiratory: Reports: No Symptoms. Denies: Shortness of Breath Cardiovascular: Reports: No Symptoms. Denies: Chest Pain GI/Abdominal: Reports: No Symptoms. Denies: Abdominal Pain, Constipation, Nausea, Vomiting : Reports: No Symptoms Musculoskeletal: Reports: Back Pain, Joint Pain (Right hip and pelvis pain). Denies: Neck Pain Skin: Reports: No Symptoms. Denies: Bruising, Rash, Erythema Neurological: Reports: No Symptoms. Denies: Headache, Numbness, Tingling Psychiatric: Reports: No Symptoms ED EXAM, GENERAL - Physical Exam Exam: See Below Exam Limited By: No Limitations General Appearance: Alert, WD/WN, No Apparent Distress Ears: Normal External Exam Nose: Normal Inspection Throat/Mouth: Normal Inspection, Normal Voice, No Airway Compromise Head: Atraumatic, Normocephalic Neck: Normal Inspection, Supple, Non-Tender, Full Range of Motion Respiratory/Chest: No Respiratory Distress, Lungs Clear, Normal Breath Sounds, Chest Non-Tender Cardiovascular: Normal Peripheral Pulses, Regular Rate, Rhythm, No Murmur Peripheral Pulses: 2+: Radial (L), Posterior Tibial (L), Posterior Tibial (R) GI/Abdominal: Soft, Non-Tender, No Distention Back Exam: Normal Inspection, Full Range of Motion Extremities: Normal Inspection, Normal Range of Motion, Normal Capillary Refill. No: Non-Tender (Tenderness in the right hip with palpation no crepitus) Neurological: Alert, Oriented, Normal Cognition, No Motor/Sensory Deficits Psychiatric: Normal Affect, Normal Mood Skin Exam: Warm, Dry, Intact, Normal Color Course - Vital Signs Text/Narrative:: The patient was evaluated emergency department, CT of the hip and pelvis was obtained and does show a bilateral pelvis fracture. See the radiology reading for complete details. The patient be discharged home she will be given Percocet 5/325 mg 1 every 6 hours as needed for pain not relieved by her tramadol. The patient will be given 6 tablets of Percocet. The patient is advised to follow-up with her PCP and return to the emergency department sooner if worsening problems. The patient was given Percocet 5/325 mg 1 p.o. in the emergency department has helped her pain Last Recorded V/S: Last Vital Signs Temp 36.7 C 01/05/20 12:21 Pulse 86 01/05/20 12:21 Resp 18 01/05/20 12:21 BP 178/92 H 01/05/20 12:21 Pulse Ox 95 01/05/20 12:21 - Orders/Labs/Meds Orders: Active Orders 24 hr Category Date Time Status Pelvis wo Cont [CT] Stat Exams 01/05/20 12:04 Taken Meds: Medications Discontinued Medications Generic Name Dose Route Start Last Admin Trade Name Frankie PRN Reason Stop Dose Admin Oxycodone/Acetaminophen 1 tab 01/05/20 12:06 01/05/20 12:18 Percocet 325-5 Mg PO 01/05/20 12:07 1 tab ONETIME ONE Administration Departure - Departure Time of Disposition: 13:32 Disposition: Home, Self-Care 01 Condition: Good Clinical Impression: Pelvic fracture - Discharge Information *PRESCRIPTION DRUG MONITORING PROGRAM REVIEWED*: Yes *COPY OF PRESCRIPTION DRUG MONITORING REPORT IN PATIENT KANDICE: Yes Instructions: Simple Pelvic Fracture, Adult Forms: ED Department Discharge Additional Instructions: Continue the your tramadol pain medication Percocet 5/325 mg 1 every 6 hours as needed for pain not relieved by your tramadol. Follow-up with your family doctor this coming week Return to the emergency department sooner if worse or any problems Sepsis Event Note - Focused Exam Vital Signs: Vital Signs Temp Pulse Resp BP Pulse Ox 01/05/20 12:21 36.7 C 86 18 178/92 H 95 Date Exam was Performed: 01/05/20 Time Exam was Performed: 13:31 - Problem List & Annotations (1) Pelvic fracture SNOMED Code(s): 94103984 Code(s): S32.9XXA - FRACTURE OF UNSP PARTS OF LUMBOSACRAL SPINE AND PELVIS, INIT Status: Acute Priority: Medium Current Visit: Yes Qualifiers: Encounter type: subsequent encounter - Problem List Review Problem List Initiated/Reviewed/Updated: Yes - My Orders Last 24 Hours: My Active Orders 01/05/20 12:04 Pelvis wo Cont [CT] Stat - Assessment/Plan Last 24 Hours: My Active Orders 01/05/20 12:04 Pelvis wo Cont [CT] Stat Plan: As above
[2020-01-05 12:23] VITALS: BP 178/92; PULSE 86
[2020-01-05] MEDS ORDERED: Take Home: Acetaminophen/oxyCODONE 325-5 MG, 2 Tab Pack PO ONE (13:34)
== END 2020-01-05 14:00 | disposition home or self-care (01) ==
LOC: CC.ED 12:05
DX: S32.9XXA Fracture of unspecified parts of lumbosacral spine and pelvis, initial encounter for closed fracture (principal); I10 Essential (primary) hypertension; J45.909 Unspecified asthma, uncomplicated; E03.9 Hypothyroidism, unspecified; Z88.2 Allergy status to sulfonamides; Z88.8 Allergy status to other drugs, medicaments and biological substances; Z86.73 Personal history of transient ischemic attack (TIA), and cerebral infarction without residual deficits; Z79.82 Long term (current) use of aspirin; Z79.890 Hormone replacement therapy; Z79.899 Other long term (current) drug therapy; W10.9XXA Fall (on) (from) unspecified stairs and steps, initial encounter; Y93.01 Activity, walking, marching and hiking
CPT/HCPCS: 72192; 99283; 99284-25; A9270-GY

== ENCOUNTER 2020-01-07 13:41 | Inpatient (IN) | payer MEDICARE, OTHER ==
[2020-01-07] MEDS ORDERED: Ondansetron 4 MG/2 ML SDV IV PRN (14:02)
[2020-01-07] MEDS ORDERED: Sodium Chloride 0.9% 10 ML Syringe FLUSH PRN (14:02)
[2020-01-07] MEDS ORDERED: ALBUTEROL SULFATE 90 MCG INH PRN (14:07)
[2020-01-07 14:50] LABS: CHLORIDE,CL 94 mEq/L (98-106); SODIUM,NA 131 mEq/L (136-145)
[2020-01-07] MEDS: Enoxaparin 40 MG/0.4 ML Syringe SUBCUT SCH (15:43)
[2020-01-07] MEDS ORDERED: Sodium Chloride 0.9% 1,000 ML IV SCH (16:00)
[2020-01-07] MEDS: Acetaminophen/oxyCODONE 325-5 MG Tab PO PRN ×2 (16:17→22:04)
[2020-01-07] MEDS: fentaNYL 100 MCG/2 ML SDV IVPUSH SCH (19:27)
[2020-01-07] MEDS: Polyethylene Glycol 3350 Powder 17 GM Packet PO SCH (19:27)
[2020-01-07] MEDS: Metoprolol Tartrate 25 MG Tab PO SCH (19:28)
[2020-01-07] MEDS: Pantoprazole 40 MG Tab.CR PO SCH (19:28)
[2020-01-07] MEDS: rOPINIRole 0.25 MG Tab PO SCH (19:28)
[2020-01-07] MEDS: Cholecalciferol (Vitamin D3) 25 MCG Tab PO SCH (19:28)
[2020-01-07] MEDS: LACTOBACILLUS ACIDOPHILUS PO SCH (19:28)
[2020-01-07] MEDS: CILOSTAZOL 100 MG PO SCH (19:28)
[2020-01-07] MEDS: Ascorbic Acid 500 MG Tab PO SCH (19:28)
[2020-01-07] MEDS ORDERED: Temazepam 15 MG Cap PO PRN (20:00)
[2020-01-08] MEDS: traMADol 50 MG Tab PO PRN (01:58)
[2020-01-08] MEDS: CILOSTAZOL 100 MG PO SCH ×2 (07:35→19:59)
[2020-01-08] MEDS: Loratadine 10 MG Tab PO SCH (07:35)
[2020-01-08] MEDS: Ascorbic Acid 500 MG Tab PO SCH ×2 (07:35→20:02)
[2020-01-08] MEDS: Pantoprazole 40 MG Tab.CR PO SCH ×2 (07:36→20:01)
[2020-01-08] MEDS: Metoprolol Tartrate 50 MG Tab PO SCH (07:36)
[2020-01-08] MEDS: Cholecalciferol (Vitamin D3) 25 MCG Tab PO SCH ×2 (07:36→20:02)
[2020-01-08] MEDS: Aspirin 81 MG Tab.EC PO SCH (07:36)
[2020-01-08] MEDS: LACTOBACILLUS ACIDOPHILUS PO SCH ×2 (07:36→20:00)
[2020-01-08] MEDS: Levothyroxine 100 MCG Tab PO SCH (07:36)
[2020-01-08] MEDS: rOPINIRole 0.25 MG Tab PO SCH ×3 (07:37→20:02)
[2020-01-08] MEDS: fentaNYL 100 MCG/2 ML SDV IVPUSH SCH ×2 (07:37→20:07)
[2020-01-08] MEDS: Polyethylene Glycol 3350 Powder 17 GM Packet PO SCH ×2 (07:37→20:01)
[2020-01-08 09:13] LABS: CHLORIDE,CL 95 mEq/L (98-106); SODIUM,NA 131 mEq/L (136-145)
--- NOTE | 2020-01-08 09:14 | PCM.PN ---
- General Info Date of Service: 01/08/20 Admission Dx/Problem (Free Text): Bilateral Sacral Insufficiency Fractures Functional Status: Reports: Tolerating Diet, Ambulating. Denies: Pain Controlled - Review of Systems General: Reports: Weakness, Fatigue HEENT: Reports: No Symptoms Pulmonary: Reports: Pleuritic Chest Pain. Denies: Shortness of Breath, Cough Cardiovascular: Denies: Chest Pain, Edema, Lightheadedness Gastrointestinal: Denies: Abdominal Pain, Nausea, Vomiting Genitourinary: Reports: No Symptoms Musculoskeletal: Reports: Back Pain Skin: Reports: No Symptoms Neurological: Reports: Weakness - Patient Data Vitals - Most Recent: Last Vital Signs Temp 98.8 F 01/08/20 08:00 Pulse 92 01/08/20 08:00 Resp 18 01/08/20 08:00 BP 174/91 H 01/08/20 08:00 Pulse Ox 95 01/08/20 08:00 Weight - Most Recent: 153 lb 8 oz Lab Results Last 24 Hours: Laboratory Results - last 24 hr 01/07/20 01/07/20 01/07/20 Range/Units 14:28 14:28 14:28 WBC 8.6 (5.0-10.0) 10^3/uL RBC 4.22 (4.00-5.50) 10^6/uL Hgb 10.7 L (12.0-16.0) g/dL Hct 34.5 L (37.0-47.0) % MCV 81.8 L (82.0-94.0) fL MCH 25.4 L (27.0-32.0) pg MCHC 31.0 L (33.0-38.0) g/dL RDW Coeff of Bryson 15.8 H (11.0-15.0) % Plt Count 499 H (150-400) 10^3/uL Neut % (Auto) 74.3 (35-85) % Lymph % (Auto) 11.5 (10-55) % [place] % (Auto) 11.5 (0-16) % Eos % (Auto) 2.2 (0-5) % Baso % (Auto) 0.5 (0-3) % Neut # (Auto) 6.37 (1.80-7.00) 10^3/uL Lymph # (Auto) 0.99 L (1.00-4.80) 10^3/uL [place] # (Auto) 0.99 H (0.00-0.80) 10^3/uL Eos # (Auto) 0.19 (0.00-0.45) 10^3/uL Baso # (Auto) 0.04 10^3/uL Sodium 131 L (136-145) mEq/L Potassium 3.9 (3.5-5.0) mEq/L Chloride 94 L (98-106) mEq/L Carbon Dioxide 33 H (21-32) mmol/L BUN 6 L (7-18) mg/dL Creatinine 0.6 (0.6-1.0) mg/dL Est Cr Clr Drug Dosing 78.17 mL/min Estimated GFR (MDRD) > 60 (>=60) mL/min Glucose 111 H (75-99) mg/dL Calcium 8.9 (8.4-10.1) mg/dL Urine Color Yellow (YELLOW) Urine Appearance Slightly cloudy (CLEAR) Urine pH 7.5 (4.5-8.0) Ur Specific [place] 1.020 (1.003-1.020) Urine Protein Negative (NEGATIVE) mg/dL Urine Glucose (UA) Negative (NEGATIVE) mg/dL Urine Ketones Negative (NEGATIVE) mg/dL Urine Occult Blood Negative (NEGATIVE) Urine Nitrite Negative (NEGATIVE) Urine Bilirubin Negative (NEGATIVE) Urine Urobilinogen 0.2 (0.2-1.0) EU/dL Ur Leukocyte Esterase Trace H (NEGATIVE) Urine RBC Not seen (0-5) /HPF Urine WBC 0-5 (0-5) /HPF Ur Squamous Epith Cells Few H (NOT SEEN) /HPF Amorphous Sediment Few H (NOT SEEN) /HPF Urine Bacteria Few H (NOT SEEN) /HPF Urine Mucus Occasional H (NOT SEEN) /HPF Urinalysis Comment 01/08/20 Range/Units 08:40 WBC 7.7 (5.0-10.0) 10^3/uL RBC 4.56 (4.00-5.50) 10^6/uL Hgb 11.6 L (12.0-16.0) g/dL Hct 37.1 (37.0-47.0) % MCV 81.4 L (82.0-94.0) fL MCH 25.4 L (27.0-32.0) pg MCHC 31.3 L (33.0-38.0) g/dL RDW Coeff of Bryson 15.9 H (11.0-15.0) % Plt Count 498 H (150-400) 10^3/uL Neut % (Auto) 75.3 (35-85) % Lymph % (Auto) 10.8 (10-55) % [place] % (Auto) 10.0 (0-16) % Eos % (Auto) 3.5 (0-5) % Baso % (Auto) 0.4 (0-3) % Neut # (Auto) 5.78 (1.80-7.00) 10^3/uL Lymph # (Auto) 0.83 L (1.00-4.80) 10^3/uL [place] # (Auto) 0.77 (0.00-0.80) 10^3/uL Eos # (Auto) 0.27 (0.00-0.45) 10^3/uL Baso # (Auto) 0.03 10^3/uL Sodium (136-145) mEq/L Potassium (3.5-5.0) mEq/L Chloride (98-106) mEq/L Carbon Dioxide (21-32) mmol/L BUN (7-18) mg/dL Creatinine (0.6-1.0) mg/dL Est Cr Clr Drug Dosing mL/min Estimated GFR (MDRD) (>=60) mL/min Glucose (75-99) mg/dL Calcium (8.4-10.1) mg/dL Urine Color (YELLOW) Urine Appearance (CLEAR) Urine pH (4.5-8.0) Ur Specific [place] (1.003-1.020) Urine Protein (NEGATIVE) mg/dL Urine Glucose (UA) (NEGATIVE) mg/dL Urine Ketones (NEGATIVE) mg/dL Urine Occult Blood (NEGATIVE) Urine Nitrite (NEGATIVE) Urine Bilirubin (NEGATIVE) Urine Urobilinogen (0.2-1.0) EU/dL Ur Leukocyte Esterase (NEGATIVE) Urine RBC (0-5) /HPF Urine WBC (0-5) /HPF Ur Squamous Epith Cells (NOT SEEN) /HPF Amorphous Sediment (NOT SEEN) /HPF Urine Bacteria (NOT SEEN) /HPF Urine Mucus (NOT SEEN) /HPF Urinalysis Comment Med Orders - Current: Current Medications Ascorbic Acid (Vitamin C) 1,000 mg PO BID [facility] Last Admin: 01/08/20 07:35 Dose: 1,000 mg Aspirin (Halfprin) 81 mg PO DAILY [facility] Last Admin: 01/08/20 07:36 Dose: 81 mg Cholecalciferol (Vitamin D3) 25 mcg PO BID [facility] Last Admin: 01/08/20 07:36 Dose: 25 mcg Enoxaparin Sodium (Lovenox) 40 mg SUBCUT BEDTIME [facility] Last Admin: 01/07/20 15:43 Dose: 40 mg Fentanyl (Sublimaze) 50 mcg IVPUSH Q12H [facility] Last Admin: 01/08/20 07:37 Dose: 50 mcg Levothyroxine Sodium (Synthroid) 100 mcg PO ACBREAKFAST [facility] Last Admin: 01/08/20 07:36 Dose: 100 mcg Loratadine (Claritin) 10 mg PO DAILY [facility] Last Admin: 01/08/20 07:35 Dose: 10 mg Metoprolol Tartrate (Lopressor) 25 mg PO BEDTIME [facility] Last Admin: 01/07/20 19:28 Dose: 25 mg Metoprolol Tartrate (Lopressor) 50 mg PO DAILY [facility] Last Admin: 01/08/20 07:36 Dose: 50 mg (Albuterol Sulfate [ Proair Respiclick] 90 Mcg 0 mcg INH ASDIRECTED PRN PRN Reason: Shortness of Breath Cilostazol [ Cilostazol] 100 Mg Tab 0 mg PO BID [facility] Last Admin: 01/08/20 07:35 Dose: 100 mg Lactobacillus Acidophilus [Pb8 Probiotic] 1 Cap 1 each PO BID [facility] Last Admin: 01/08/20 07:36 Dose: 1 each Ondansetron HCl (Zofran) 4 mg IV Q6H PRN PRN Reason: Nausea/Vomiting Oxycodone/Acetaminophen (Percocet 325-5 Mg) 1 tab PO Q6H PRN PRN Reason: Pain Last Admin: 01/07/20 22:04 Dose: 1 tab Pantoprazole Sodium (Protonix) 40 mg PO BID [facility] Last Admin: 01/08/20 07:36 Dose: 40 mg Polyethylene Glycol (Miralax) 17 gm PO BID [facility] Last Admin: 01/08/20 07:37 Dose: 17 gm Ropinirole HCl (Requip) 0.5 mg PO TID [facility] Last Admin: 01/08/20 07:37 Dose: 0.5 mg Sodium Chloride (Saline Flush) 10 ml FLUSH ASDIRECTED PRN PRN Reason: Keep Vein Open Temazepam (Restoril) 15 mg PO BEDTIME PRN PRN Reason: Sleep Tramadol HCl (Ultram) 50 mg PO Q6H PRN PRN Reason: Pain Last Admin: 01/08/20 01:58 Dose: 50 mg Discontinued Medications Sodium Chloride (Normal Saline) 1,000 mls @ 75 mls/hr IV ASDIRECTED FLASH Stop: 01/08/20 05:19 - Exam General: Alert, Oriented HEENT: Mucous Membr. Moist/[place] Neck: Supple Lungs: Clear to Auscultation, Normal Respiratory Effort Cardiovascular: Regular Rate, Regular Rhythm GI/Abdominal Exam: Normal Bowel Sounds, Soft, Non-Tender Back Exam: Vertebral Tenderness (lower lumbar and sacral discomfort with palpation, also tender to right hip.) Extremities: Normal Inspection, No Pedal Edema Skin: Warm, Dry Neurological: No New Focal Deficit Sepsis Event Note - Evaluation Sepsis Screening Result: No Definite Risk - Focused Exam Vital Signs: Vital Signs Temp Pulse Pulse Resp BP BP Pulse Ox 01/08/20 08:00 98.8 F 92 18 174/91 H 95 01/08/20 07:36 92 174/91 H 01/08/20 03:32 98.9 F 76 18 148/62 H 97 01/08/20 00:00 97.9 F 86 18 155/70 H 97 Date Exam was Performed: 01/08/20 Time Exam was Performed: 09:09 - Problem List & Annotations (1) Pelvic fracture SNOMED Code(s): 31207179 Code(s): S32.9XXA - FRACTURE OF UNSP PARTS OF LUMBOSACRAL SPINE AND PELVIS, INIT Status: Acute Priority: High Current Visit: Yes Qualifiers: Encounter type: subsequent encounter Pelvic bone location: other part of pelvis Fracture type: closed Fracture healing: with routine healing Qualified Code(s): S32.89XD - Fracture of other parts of pelvis, subsequent encounter for fracture with routine healing - Problem List Review Problem List Initiated/Reviewed/Updated: Yes - My Orders Last 24 Hours: My Active Orders 01/08/20 08:40 BASIC METABOLIC PANEL,BMP [CHEM] Routine 01/08/20 09:09 Dexa Bone Density Body [MY] Routine - Assessment Assessment:: Bilateral Sacral Insufficiency Fractures - Plan Plan:: Patient continues to have pain with movement. States difficult to find a position of comfort while lying in bed. Is able to ambulate once up but has difficulty getting up and down from bed/chair. She states "ribs are sore from laying around so much". Blood pressures are high at times. Patient typically takes an amlodipine in the am if her blood pressure does not respond well to the metoprolol. Will continue with PT today. Continue IV pain meds. Obtain Dexa scan due to fractures. Await repeat labs this am to recheck sodium.
[2020-01-08] MEDS: Acetaminophen/oxyCODONE 325-5 MG Tab PO PRN ×3 (09:23→23:14)
[2020-01-08] MEDS: PRAMOXINE 1% RECTAL PRN (15:06)
[2020-01-08] MEDS: Metoprolol Tartrate 25 MG Tab PO SCH (20:03)
[2020-01-08] MEDS: Enoxaparin 40 MG/0.4 ML Syringe SUBCUT SCH (20:03)
[2020-01-09] MEDS: Acetaminophen/oxyCODONE 325-5 MG Tab PO PRN ×3 (06:11→23:26)
[2020-01-09] MEDS: Levothyroxine 100 MCG Tab PO SCH (06:12)
[2020-01-09] MEDS: Cholecalciferol (Vitamin D3) 25 MCG Tab PO SCH ×2 (07:27→19:37)
[2020-01-09] MEDS: Polyethylene Glycol 3350 Powder 17 GM Packet PO SCH ×2 (07:27→19:37)
[2020-01-09] MEDS: Pantoprazole 40 MG Tab.CR PO SCH ×2 (07:28→19:40)
[2020-01-09] MEDS: Aspirin 81 MG Tab.EC PO SCH (07:28)
[2020-01-09] MEDS: Ascorbic Acid 500 MG Tab PO SCH ×2 (07:28→19:39)
[2020-01-09] MEDS: Loratadine 10 MG Tab PO SCH (07:29)
[2020-01-09] MEDS: Metoprolol Tartrate 50 MG Tab PO SCH (07:29)
[2020-01-09] MEDS: fentaNYL 100 MCG/2 ML SDV IVPUSH SCH ×2 (07:30→19:42)
[2020-01-09] MEDS: rOPINIRole 0.25 MG Tab PO SCH ×3 (07:33→19:35)
[2020-01-09] MEDS: CILOSTAZOL 100 MG PO SCH ×2 (07:35→19:40)
[2020-01-09] MEDS: LACTOBACILLUS ACIDOPHILUS PO SCH ×2 (07:36→19:40)
--- NOTE | 2020-01-09 08:49 | PCM.PN ---
- General Info Date of Service: 01/09/20 Admission Dx/Problem (Free Text): Bilateral Sacral Insufficiency Fractures Functional Status: Reports: Pain Controlled, Tolerating Diet, Ambulating - Review of Systems General: Reports: Weakness, Fatigue, Malaise HEENT: Reports: No Symptoms Pulmonary: Denies: Shortness of Breath, Cough Cardiovascular: Denies: Chest Pain, Edema, Lightheadedness Gastrointestinal: Denies: Abdominal Pain, Nausea, Vomiting Genitourinary: Reports: No Symptoms Musculoskeletal: Reports: Back Pain, Leg Pain Skin: Reports: No Symptoms Neurological: Reports: Weakness - Patient Data Vitals - Most Recent: Last Vital Signs Temp 98.5 F 01/09/20 07:03 Pulse 78 01/09/20 07:29 Resp 14 01/09/20 07:03 BP 140/77 01/09/20 07:29 Pulse Ox 97 01/09/20 07:03 Weight - Most Recent: 153 lb 8 oz Lab Results Last 24 Hours: Laboratory Results - last 24 hr 01/08/20 01/08/20 Range/Units 08:40 08:40 WBC 7.7 (5.0-10.0) 10^3/uL RBC 4.56 (4.00-5.50) 10^6/uL Hgb 11.6 L (12.0-16.0) g/dL Hct 37.1 (37.0-47.0) % MCV 81.4 L (82.0-94.0) fL MCH 25.4 L (27.0-32.0) pg MCHC 31.3 L (33.0-38.0) g/dL RDW Coeff of Bryson 15.9 H (11.0-15.0) % Plt Count 498 H (150-400) 10^3/uL Neut % (Auto) 75.3 (35-85) % Lymph % (Auto) 10.8 (10-55) % [place] % (Auto) 10.0 (0-16) % Eos % (Auto) 3.5 (0-5) % Baso % (Auto) 0.4 (0-3) % Neut # (Auto) 5.78 (1.80-7.00) 10^3/uL Lymph # (Auto) 0.83 L (1.00-4.80) 10^3/uL [place] # (Auto) 0.77 (0.00-0.80) 10^3/uL Eos # (Auto) 0.27 (0.00-0.45) 10^3/uL Baso # (Auto) 0.03 10^3/uL Sodium 131 L (136-145) mEq/L Potassium 3.7 (3.5-5.0) mEq/L Chloride 95 L (98-106) mEq/L Carbon Dioxide 31 (21-32) mmol/L BUN 5 L (7-18) mg/dL Creatinine 0.5 L (0.6-1.0) mg/dL Est Cr Clr Drug Dosing 93.81 mL/min Estimated GFR (MDRD) > 60 (>=60) mL/min Glucose 125 H (75-99) mg/dL Calcium 9.0 (8.4-10.1) mg/dL Med Orders - Current: Current Medications Ascorbic Acid (Vitamin C) 1,000 mg PO BID [facility] Last Admin: 01/09/20 07:28 Dose: 1,000 mg Aspirin (Halfprin) 81 mg PO DAILY [facility] Last Admin: 01/09/20 07:28 Dose: 81 mg Cholecalciferol (Vitamin D3) 25 mcg PO BID [facility] Last Admin: 01/09/20 07:27 Dose: 25 mcg Enoxaparin Sodium (Lovenox) 40 mg SUBCUT BEDTIME [facility] Last Admin: 01/08/20 20:03 Dose: 40 mg Fentanyl (Sublimaze) 50 mcg IVPUSH Q12H [facility] Last Admin: 01/09/20 07:30 Dose: 50 mcg Levothyroxine Sodium (Synthroid) 100 mcg PO ACBREAKFAST [facility] Last Admin: 01/09/20 06:12 Dose: 100 mcg Loratadine (Claritin) 10 mg PO DAILY [facility] Last Admin: 01/09/20 07:29 Dose: 10 mg Metoprolol Tartrate (Lopressor) 25 mg PO BEDTIME [facility] Last Admin: 01/08/20 20:03 Dose: 25 mg Metoprolol Tartrate (Lopressor) 50 mg PO DAILY [facility] Last Admin: 01/09/20 07:29 Dose: 50 mg (Albuterol Sulfate [ Proair Respiclick] 90 Mcg 0 mcg INH ASDIRECTED PRN PRN Reason: Shortness of Breath Cilostazol [ Cilostazol] 100 Mg Tab 0 mg PO BID [facility] Last Admin: 02/26/20 07:35 Dose: 100 mg Lactobacillus Acidophilus [Pb8 Probiotic] 1 Cap 1 each PO BID [facility] Last Admin: 01/09/20 07:36 Dose: 1 each Ondansetron HCl (Zofran) 4 mg IV Q6H PRN PRN Reason: Nausea/Vomiting Oxycodone/Acetaminophen (Percocet 325-5 Mg) 1 tab PO Q6H PRN PRN Reason: Pain Last Admin: 01/09/20 06:11 Dose: 1 tab Pantoprazole Sodium (Protonix) 40 mg PO BID [facility] Last Admin: 01/09/20 07:28 Dose: 40 mg Polyethylene Glycol (Miralax) 17 gm PO BID [facility] Last Admin: 01/09/20 07:27 Dose: 17 gm Pramoxine HCl (Proctofoam) 1 gm RECTAL TID PRN PRN Reason: Pain Last Admin: 01/08/20 15:06 Dose: 1 applic Ropinirole HCl (Requip) 0.5 mg PO TID [facility] Last Admin: 01/09/20 07:33 Dose: 0.5 mg Sodium Chloride (Saline Flush) 10 ml FLUSH ASDIRECTED PRN PRN Reason: Keep Vein Open Temazepam (Restoril) 15 mg PO BEDTIME PRN PRN Reason: Sleep Tramadol HCl (Ultram) 50 mg PO Q6H PRN PRN Reason: Pain Last Admin: 01/08/20 01:58 Dose: 50 mg Discontinued Medications Sodium Chloride (Normal Saline) 1,000 mls @ 75 mls/hr IV ASDIRECTED [facility] Stop: 01/08/20 05:19 - Exam General: Alert, Oriented HEENT: Mucous Membr. Moist/[place] Neck: Supple Lungs: Clear to Auscultation, Normal Respiratory Effort Cardiovascular: Regular Rate, Regular Rhythm, Murmurs GI/Abdominal Exam: Normal Bowel Sounds, Soft, Non-Tender Extremities: Normal Inspection, No Pedal Edema Skin: Warm, Dry Neurological: No New Focal Deficit Sepsis Event Note - Evaluation Sepsis Screening Result: No Definite Risk - Focused Exam Vital Signs: Vital Signs Temp Pulse Pulse Resp BP BP BP 01/09/20 07:29 78 140/77 01/09/20 07:03 98.5 F 97 14 140/77 01/09/20 04:00 98.8 F 93 18 161/86 H 01/09/20 00:00 99.1 F 83 20 148/79 H Pulse Ox 01/09/20 07:29 01/09/20 07:03 97 01/09/20 04:00 94 L 01/09/20 00:00 96 Date Exam was Performed: 01/09/20 Time Exam was Performed: 08:42 - Problem List & Annotations (1) Pelvic fracture SNOMED Code(s): 84245528 Code(s): S32.9XXA - FRACTURE OF UNSP PARTS OF LUMBOSACRAL SPINE AND PELVIS, INIT Status: Acute Priority: High Current Visit: Yes Qualifiers: Encounter type: subsequent encounter Pelvic bone location: other part of pelvis Fracture type: closed Fracture healing: with routine healing Qualified Code(s): S32.89XD - Fracture of other parts of pelvis, subsequent encounter for fracture with routine healing - Problem List Review Problem List Initiated/Reviewed/Updated: Yes - My Orders Last 24 Hours: My Active Orders 01/08/20 09:09 Dexa Bone Density Body [MY] Routine 01/10/20 05:11 BASIC METABOLIC PANEL,BMP [CHEM] AM C-REACTIVE PROTEIN [CHEM] AM CBC WITH AUTO DIFF [HEME] AM - Assessment Assessment:: Bilateral Sacral Insufficiency Fractures - Plan Plan:: Patient continues to have pain with movement. States difficult to find a position of comfort while lying in bed. Is able to ambulate once up but has difficulty getting up and down from bed/chair. She states "ribs are sore from laying around so much". Blood pressures are high at times. Patient typically takes an amlodipine in the am if her blood pressure does not respond well to the metoprolol. Will continue with PT today. Continue IV pain meds. Obtain Dexa scan due to fractures. Await repeat labs this am to recheck sodium. 01-09-2020 Patient up and ambulating with walker this am to bathroom. States notes most difficulty when getting up from chair. Still notes most pain in right hip, radiates down her leg but admits that has chronic problems with that due to degenerative disc disease. Does feel she is getting pain control from the IV meds but "don't last long enough so is using oral meds as well". Is tender to right trochanteric area, low sacral region. Will continue with PT and pain control.
[2020-01-09] MEDS: traMADol 50 MG Tab PO PRN ×2 (10:26→18:27)
[2020-01-09] MEDS: Enoxaparin 40 MG/0.4 ML Syringe SUBCUT SCH (19:37)
[2020-01-09] MEDS: Metoprolol Tartrate 25 MG Tab PO SCH (19:39)
[2020-01-10] MEDS: Levothyroxine 100 MCG Tab PO SCH (06:11)
[2020-01-10 07:17] LABS: CHLORIDE,CL 96 mEq/L (98-106); SODIUM,NA 134 mEq/L (136-145)
[2020-01-10] MEDS: Polyethylene Glycol 3350 Powder 17 GM Packet PO SCH ×2 (07:23→20:12)
[2020-01-10] MEDS: CILOSTAZOL 100 MG PO SCH ×2 (07:23→20:11)
[2020-01-10] MEDS: LACTOBACILLUS ACIDOPHILUS PO SCH ×2 (07:23→20:11)
[2020-01-10] MEDS: fentaNYL 100 MCG/2 ML SDV IVPUSH SCH ×2 (07:23→20:19)
[2020-01-10] MEDS: Metoprolol Tartrate 50 MG Tab PO SCH (07:24)
[2020-01-10] MEDS: rOPINIRole 0.25 MG Tab PO SCH ×3 (07:24→20:12)
[2020-01-10] MEDS: Loratadine 10 MG Tab PO SCH (07:24)
[2020-01-10] MEDS: Pantoprazole 40 MG Tab.CR PO SCH ×2 (07:24→20:12)
[2020-01-10] MEDS: Cholecalciferol (Vitamin D3) 25 MCG Tab PO SCH ×2 (07:24→20:13)
[2020-01-10] MEDS: Aspirin 81 MG Tab.EC PO SCH (07:25)
[2020-01-10] MEDS: Ascorbic Acid 500 MG Tab PO SCH ×2 (07:25→20:13)
--- NOTE | 2020-01-10 10:12 | PCM.PN ---
- General Info Date of Service: 01/10/20 Admission Dx/Problem (Free Text): Bilateral Sacral Insufficiency Fractures Functional Status: Reports: Pain Controlled, Tolerating Diet, Ambulating - Review of Systems General: Reports: Weakness, Fatigue, Malaise HEENT: Reports: No Symptoms Pulmonary: Denies: Shortness of Breath, Cough Cardiovascular: Denies: Chest Pain, Edema, Lightheadedness Gastrointestinal: Denies: Abdominal Pain, Nausea, Vomiting Genitourinary: Reports: No Symptoms Musculoskeletal: Reports: Back Pain, Joint Pain Skin: Reports: No Symptoms Neurological: Reports: Weakness - Patient Data Vitals - Most Recent: Last Vital Signs Temp 97.8 F 01/10/20 07:21 Pulse 97 01/10/20 07:24 Resp 18 01/10/20 07:21 BP 180/89 H 01/10/20 07:24 Pulse Ox 100 01/10/20 07:21 Weight - Most Recent: 153 lb 8 oz Lab Results Last 24 Hours: Laboratory Results - last 24 hr 01/10/20 01/10/20 Range/Units 06:55 06:55 WBC 6.8 (5.0-10.0) 10^3/uL RBC 4.07 (4.00-5.50) 10^6/uL Hgb 10.2 L (12.0-16.0) g/dL Hct 33.1 L (37.0-47.0) % MCV 81.3 L (82.0-94.0) fL MCH 25.1 L (27.0-32.0) pg MCHC 30.8 L (33.0-38.0) g/dL RDW Coeff of Bryson 16.2 H (11.0-15.0) % Plt Count 534 H (150-400) 10^3/uL Neut % (Auto) 68.0 (35-85) % Lymph % (Auto) 15.8 (10-55) % Archuleta % (Auto) 11.7 (0-16) % Eos % (Auto) 4.1 (0-5) % Baso % (Auto) 0.4 (0-3) % Neut # (Auto) 4.64 (1.80-7.00) 10^3/uL Lymph # (Auto) 1.08 (1.00-4.80) 10^3/uL [place] # (Auto) 0.80 (0.00-0.80) 10^3/uL Eos # (Auto) 0.28 (0.00-0.45) 10^3/uL Baso # (Auto) 0.03 10^3/uL Sodium 134 L (136-145) mEq/L Potassium 4.0 (3.5-5.0) mEq/L Chloride 96 L (98-106) mEq/L Carbon Dioxide 32 (21-32) mmol/L BUN 6 L (7-18) mg/dL Creatinine 0.5 L (0.6-1.0) mg/dL Est Cr Clr Drug Dosing 93.81 mL/min Estimated GFR (MDRD) > 60 (>=60) mL/min Glucose 89 D (75-99) mg/dL Calcium 8.6 (8.4-10.1) mg/dL C-Reactive Protein 4.2 H (0.2-0.8) mg/dL Med Orders - Current: Current Medications Ascorbic Acid (Vitamin C) 1,000 mg PO BID [facility] Last Admin: 01/10/20 07:25 Dose: 1,000 mg Aspirin (Halfprin) 81 mg PO DAILY [facility] Last Admin: 01/10/20 07:25 Dose: 81 mg Cholecalciferol (Vitamin D3) 25 mcg PO BID [facility] Last Admin: 01/10/20 07:24 Dose: 25 mcg Enoxaparin Sodium (Lovenox) 40 mg SUBCUT BEDTIME [facility] Last Admin: 01/09/20 19:37 Dose: 40 mg Fentanyl (Sublimaze) 50 mcg IVPUSH Q12H [facility] Last Admin: 01/10/20 07:23 Dose: 50 mcg Levothyroxine Sodium (Synthroid) 100 mcg PO ACBREAKFAST [facility] Last Admin: 01/10/20 06:11 Dose: 100 mcg Loratadine (Claritin) 10 mg PO DAILY [facility] Last Admin: 01/10/20 07:24 Dose: 10 mg Metoprolol Tartrate (Lopressor) 25 mg PO BEDTIME [facility] Last Admin: 01/09/20 19:39 Dose: 25 mg Metoprolol Tartrate (Lopressor) 50 mg PO DAILY [facility] Last Admin: 01/10/20 07:24 Dose: 50 mg (Albuterol Sulfate [ Proair Respiclick] 90 Mcg 0 mcg INH ASDIRECTED PRN PRN Reason: Shortness of Breath Cilostazol [ Cilostazol] 100 Mg Tab 0 mg PO BID [facility] Last Admin: 01/10/20 07:23 Dose: 100 mg Lactobacillus Acidophilus [Pb8 Probiotic] 1 Cap 1 each PO BID [facility] Last Admin: 01/10/20 07:23 Dose: 1 each Ondansetron HCl (Zofran) 4 mg IV Q6H PRN PRN Reason: Nausea/Vomiting Oxycodone/Acetaminophen (Percocet 325-5 Mg) 1 tab PO Q6H PRN PRN Reason: Pain Last Admin: 01/09/20 23:26 Dose: 1 tab Pantoprazole Sodium (Protonix) 40 mg PO BID [facility] Last Admin: 01/10/20 07:24 Dose: 40 mg Polyethylene Glycol (Miralax) 17 gm PO BID [facility] Last Admin: 01/10/20 07:23 Dose: 17 gm Pramoxine HCl (Proctofoam) 1 gm RECTAL TID PRN PRN Reason: Pain Last Admin: 01/08/20 15:06 Dose: 1 applic Ropinirole HCl (Requip) 0.5 mg PO TID [facility] Last Admin: 01/10/20 07:24 Dose: 0.5 mg Sodium Chloride (Saline Flush) 10 ml FLUSH ASDIRECTED PRN PRN Reason: Keep Vein Open Temazepam (Restoril) 15 mg PO BEDTIME PRN PRN Reason: Sleep Tramadol HCl (Ultram) 50 mg PO Q6H PRN PRN Reason: Pain Last Admin: 01/09/20 18:27 Dose: 50 mg Discontinued Medications Sodium Chloride (Normal Saline) 1,000 mls @ 75 mls/hr IV ASDIRECTED [facility] Stop: 01/08/20 05:19 - Exam General: Alert, Oriented HEENT: Mucous Membr. Moist/[place] Neck: Supple Lungs: Clear to Auscultation, Normal Respiratory Effort Cardiovascular: Regular Rate, Regular Rhythm, Murmurs GI/Abdominal Exam: Normal Bowel Sounds, Soft, Non-Tender Back Exam: Vertebral Tenderness Skin: Warm, Dry Neurological: No New Focal Deficit Sepsis Event Note - Evaluation Sepsis Screening Result: No Definite Risk - Focused Exam Vital Signs: Vital Signs Temp Pulse Pulse Resp BP BP BP 01/10/20 07:24 97 180/89 H 01/10/20 07:21 97.8 F 97 18 180/89 H 01/10/20 04:00 97.7 F 98 18 177/88 H 01/09/20 23:30 98.1 F 93 18 162/85 H Pulse Ox 01/10/20 07:24 01/10/20 07:21 100 01/10/20 04:00 96 01/09/20 23:30 92 L Date Exam was Performed: 01/10/20 Time Exam was Performed: 10:08 - Problem List & Annotations (1) Pelvic fracture SNOMED Code(s): 94310791 Code(s): S32.9XXA - FRACTURE OF UNSP PARTS OF LUMBOSACRAL SPINE AND PELVIS, INIT Status: Acute Priority: High Current Visit: Yes Qualifiers: Encounter type: subsequent encounter Pelvic bone location: other part of pelvis Fracture type: closed Fracture healing: with routine healing Qualified Code(s): S32.89XD - Fracture of other parts of pelvis, subsequent encounter for fracture with routine healing - Problem List Review Problem List Initiated/Reviewed/Updated: Yes - Assessment Assessment:: Bilateral Sacral Insufficiency Fractures - Plan Plan:: Patient continues to have pain with movement. States difficult to find a position of comfort while lying in bed. Is able to ambulate once up but has difficulty getting up and down from bed/chair. She states "ribs are sore from laying around so much". Blood pressures are high at times. Patient typically takes an amlodipine in the am if her blood pressure does not respond well to the metoprolol. Will continue with PT today. Continue IV pain meds. Obtain Dexa scan due to fractures. Await repeat labs this am to recheck sodium. 01-09-2020 Patient up and ambulating with walker this am to bathroom. States notes most difficulty when getting up from chair. Still notes most pain in right hip, radiates down her leg but admits that has chronic problems with that due to degenerative disc disease. Does feel she is getting pain control from the IV meds but "don't last long enough so is using oral meds as well". Is tender to right trochanteric area, low sacral region. Will continue with PT and pain control. 01-10-2020 Patient slowly improving. Is getting up from the chair now per self and ambulating with walker, fairly steady. She is getting good control of her pain with oral meds. Working well with PT. PT does feel she is physically doing well. Dexa scan did show osteoporosis. Will need to likely start Prolia injections. Labs are all stable now, sodium has improved to 134. CRP 4.2. Will continue with PT today, plan to be discharged home tomorrow with home health care.
[2020-01-10] MEDS: traMADol 50 MG Tab PO PRN (10:46)
[2020-01-10] MEDS ORDERED: Bisacodyl 10 MG Supp RECTAL PRN (10:53)
[2020-01-10] MEDS: PRAMOXINE 1% RECTAL PRN (12:05)
[2020-01-10] MEDS: Acetaminophen/oxyCODONE 325-5 MG Tab PO PRN ×2 (14:38→22:56)
[2020-01-10] MEDS: Metoprolol Tartrate 25 MG Tab PO SCH (20:12)
[2020-01-10] MEDS: Enoxaparin 40 MG/0.4 ML Syringe SUBCUT SCH (20:15)
[2020-01-11] MEDS: traMADol 50 MG Tab PO PRN (03:09)
[2020-01-11] MEDS: Levothyroxine 100 MCG Tab PO SCH (06:52)
[2020-01-11] MEDS: fentaNYL 100 MCG/2 ML SDV IVPUSH SCH (07:39)
[2020-01-11] MEDS: rOPINIRole 0.25 MG Tab PO SCH (07:40)
[2020-01-11] MEDS: Metoprolol Tartrate 50 MG Tab PO SCH (07:40)
[2020-01-11] MEDS: Ascorbic Acid 500 MG Tab PO SCH (07:40)
[2020-01-11] MEDS: Cholecalciferol (Vitamin D3) 25 MCG Tab PO SCH (07:40)
[2020-01-11 07:41] VITALS: BP 185/94; PULSE 96
[2020-01-11] MEDS: Aspirin 81 MG Tab.EC PO SCH (07:41)
[2020-01-11] MEDS: Loratadine 10 MG Tab PO SCH (07:41)
[2020-01-11] MEDS: Polyethylene Glycol 3350 Powder 17 GM Packet PO SCH (07:41)
[2020-01-11] MEDS: Pantoprazole 40 MG Tab.CR PO SCH (07:41)
[2020-01-11] MEDS: CILOSTAZOL 100 MG PO SCH (09:26)
[2020-01-11] MEDS: LACTOBACILLUS ACIDOPHILUS PO SCH (09:26)
--- NOTE | 2020-01-11 09:58 | PCM.DCSUM1 ---
Discharge Summary - Hospital Course Free Text/Narrative:: Patient presented to clinic to see Francesca for ongoing persistent low back pain. She had fallen 2 weeks prior and initially xrays were negative. Presented back to ER, had a CT scan and was noted to have bilateral sacral insufficiency fractures. Was not doing well at home with oral pain medications , having difficulty ambulating and getting in and out of chairs. Admitted for physical therapy and IV pain control. Diagnosis: Stroke: No Modified [place] Scale: No Symptoms at All Modified [place] Scale Score: 0 - Discharge Data Discharge Date: 01/11/20 Discharge Disposition: Home, W Home Health Agency 06 Condition: Good - Referral to Home Health Date of Face to Face Encounter: 01/11/20 Reason for Homebound Status: sacral fractures/immobility issues Primary Care Physician: Francesca Travis NP Skilled Need: Nursing to monitor pain level, blood pressure, mobility. Physical therapy for strenghtening and ambulation. Occupational therapy for ADLS. - Discharge Diagnosis/Problem(s) (1) Pelvic fracture SNOMED Code(s): 42807213 ICD Code: S32.9XXA - FRACTURE OF UNSP PARTS OF LUMBOSACRAL SPINE AND PELVIS, INIT Status: Acute Priority: High Qualifiers: Encounter type: subsequent encounter Pelvic bone location: other part of pelvis Fracture type: closed Fracture healing: with routine healing Qualified Code(s): S32.89XD - Fracture of other parts of pelvis, subsequent encounter for fracture with routine healing - Patient Summary/Data Complications: none Consults: Consultations 01/07/20 14:02 PT Evaluation and Treatment [CONS] Routine Hospital Course: Patient is doing much better. Is able to rise from chair, ambulate in hallways with walker and doing very well. PT does feel she is physically capable now of returning home. She is doing well on oral pain meds. Was having issues with constipation, given suppository and now having regular stools. Had dexa scan which does show osteoporosis, will start Prolia after her follow up visit with Francesca. Patient discharged home on oral percocet. Home health care for ongoing PT for strengthening, ambulation, monitoring of blood pressure. - Patient Instructions Diet: Usual Diet as Tolerated Activity: As Tolerated - Discharge Plan *PRESCRIPTION DRUG MONITORING PROGRAM REVIEWED*: No *COPY OF PRESCRIPTION DRUG MONITORING REPORT IN PATIENT KANDICE: No Home Medications: Home Meds Levothyroxine [Synthroid] 100 mcg PO ACBREAKFAST 07/31/15 [History] rOPINIRole HCl [Requip] 0.5 mg PO TID 07/31/15 [History] Albuterol Sulfate [Proair Respiclick] 90 mcg INH ASDIRECTED PRN 09/16/16 [ History] Aspirin [Halfprin] 81 mg PO DAILY 09/16/16 [History] Ascorbic Acid [Vitamin C] 1,000 mg PO BID 12/28/17 [History] Cholecalciferol (Vitamin D3) [Vitamin D3] 1,000 unit PO BID 12/28/17 [History] Wilson [Wilson Reeves] 3 cap PO TID 12/28/17 [History] Kelp 660 mg PO BID 12/28/17 [History] Lactobacillus Acidophilus [Acidophilus] 1 each PO BID 12/28/17 [History] [place] Extract 75 mg PO TID 12/28/17 [History] Metoprolol Tartrate 50 mg PO DAILY 06/05/19 [History] cilostazoL [Cilostazol] 100 mg PO BID 07/22/19 [History] Acetaminophen/oxyCODONE [Percocet 325-5 MG] 1 tab PO Q8H PRN 01/07/20 [History] Cetirizine [ZyrTEC] 10 mg PO DAILY 01/07/20 [History] Metoprolol Tartrate 25 mg PO BEDTIME 01/07/20 [History] Pantoprazole Sodium [Protonix] 40 mg PO BID 01/07/20 [History] traMADol [Ultram] 50 mg PO Q6H PRN 01/07/20 [History] Patient Handouts: Simple Pelvic Fracture, Adult Referrals: Francesca Travis [employer] [Primary Care Provider] - (Follow up with Francesca in 10 days ) - Discharge Summary/Plan Comment DC Time >30 min.: No - General Info Date of Service: 01/13/20 Admission Dx/Problem (Free Text: Bilateral Sacral Insufficiency Fractures Functional Status: Reports: Pain Controlled, Tolerating Diet, Ambulating - Review of Systems General: Reports: Weakness, Fatigue, Malaise HEENT: Reports: No Symptoms Pulmonary: Reports: No Symptoms Cardiovascular: Reports: No Symptoms Gastrointestinal: Reports: No Symptoms Genitourinary: Reports: No Symptoms Musculoskeletal: Reports: Back Pain Skin: Reports: No Symptoms Neurological: Reports: Weakness - Patient Data Vitals - Most Recent: Last Vital Signs Temp 98.3 F 01/11/20 08:00 Pulse 96 01/11/20 08:00 Resp 16 01/11/20 08:00 BP 185/94 H 01/11/20 08:00 Pulse Ox 99 01/11/20 08:00 Weight - Most Recent: 153 lb 8 oz Med Orders - Current: Current Medications Ascorbic Acid (Vitamin C) 1,000 mg PO BID [facility] Last Admin: 01/11/20 07:40 Dose: 1,000 mg Aspirin (Halfprin) 81 mg PO DAILY [facility] Last Admin: 01/11/20 07:41 Dose: 81 mg Bisacodyl (Dulcolax) 10 mg RECTAL DAILY PRN PRN Reason: Constipation Last Admin: 01/10/20 11:43 Dose: 10 mg Cholecalciferol (Vitamin D3) 25 mcg PO BID [facility] Last Admin: 01/11/20 07:40 Dose: 25 mcg Enoxaparin Sodium (Lovenox) 40 mg SUBCUT BEDTIME [facility] Last Admin: 01/10/20 20:15 Dose: 40 mg Fentanyl (Sublimaze) 50 mcg IVPUSH Q12H [facility] Last Admin: 01/11/20 07:39 Dose: 50 mcg Levothyroxine Sodium (Synthroid) 100 mcg PO ACBREAKFAST [facility] Last Admin: 01/11/20 06:52 Dose: 100 mcg Loratadine (Claritin) 10 mg PO DAILY [facility] Last Admin: 01/11/20 07:41 Dose: 10 mg Metoprolol Tartrate (Lopressor) 25 mg PO BEDTIME [facility] Last Admin: 01/10/20 20:12 Dose: 25 mg Metoprolol Tartrate (Lopressor) 50 mg PO DAILY [facility] Last Admin: 01/11/20 07:40 Dose: 50 mg (Albuterol Sulfate [ Proair Respiclick] 90 Mcg 0 mcg INH ASDIRECTED PRN PRN Reason: Shortness of Breath Cilostazol [ Cilostazol] 100 Mg Tab 0 mg PO BID [facility] Last Admin: 01/11/20 09:26 Dose: 1 mg Lactobacillus Acidophilus [Pb8 Probiotic] 1 Cap 1 each PO BID [facility] Last Admin: 01/11/20 09:26 Dose: 1 each Ondansetron HCl (Zofran) 4 mg IV Q6H PRN PRN Reason: Nausea/Vomiting Oxycodone/Acetaminophen (Percocet 325-5 Mg) 1 tab PO Q6H PRN PRN Reason: Pain Last Admin: 01/10/20 22:56 Dose: 1 tab Pantoprazole Sodium (Protonix) 40 mg PO BID [facility] Last Admin: 01/11/20 07:41 Dose: 40 mg Polyethylene Glycol (Miralax) 17 gm PO BID [facility] Last Admin: 01/11/20 07:41 Dose: 17 gm Pramoxine HCl (Proctofoam) 1 gm RECTAL TID PRN PRN Reason: Pain Last Admin: 01/10/20 12:05 Dose: 1 applic Ropinirole HCl (Requip) 0.5 mg PO TID [facility] Last Admin: 01/11/20 07:40 Dose: 0.5 mg Sodium Chloride (Saline Flush) 10 ml FLUSH ASDIRECTED PRN PRN Reason: Keep Vein Open Temazepam (Restoril) 15 mg PO BEDTIME PRN PRN Reason: Sleep Tramadol HCl (Ultram) 50 mg PO Q6H PRN PRN Reason: Pain Last Admin: 01/11/20 03:09 Dose: 50 mg Discontinued Medications Sodium Chloride (Normal Saline) 1,000 mls @ 75 mls/hr IV ASDIRECTED [facility] Stop: 01/08/20 05:19 - Exam General: Reports: Alert, Oriented HEENT: Reports: Mucous Membr. Moist/[place] Neck: Reports: Supple Lungs: Reports: Clear to Auscultation, Normal Respiratory Effort Cardiovascular: Reports: Regular Rate, Regular Rhythm, Murmurs GI/Abdominal Exam: Normal Bowel Sounds, Soft, Non-Tender Extremities: Normal Inspection, No Pedal Edema Skin: Reports: Warm, Dry Neurological: Reports: No New Focal Deficit
== END 2020-01-11 09:40 | disposition home health service (06) | DRG 561 ==
LOC: CC.MS 13:41 → UNDOADMIN 13:41 → CC.MS 14:02
PROVIDERS: ADMIT Nurse Practitioner Family; ATTEND Family Medicine
DX: M84.48XD Pathological fracture, other site, subsequent encounter for fracture with routine healing (principal); I10 Essential (primary) hypertension; E03.9 Hypothyroidism, unspecified; E78.5 Hyperlipidemia, unspecified; J45.909 Unspecified asthma, uncomplicated; M81.0 Age-related osteoporosis without current pathological fracture; K59.00 Constipation, unspecified; M43.06 Spondylolysis, lumbar region; I25.10 Atherosclerotic heart disease of native coronary artery without angina pectoris; I73.9 Peripheral vascular disease, unspecified; Z88.2 Allergy status to sulfonamides; Z88.8 Allergy status to other drugs, medicaments and biological substances; Z91.011 Allergy to milk products; Z91.018 Allergy to other foods; Z79.51 Long term (current) use of inhaled steroids; Z79.899 Other long term (current) drug therapy; Z90.49 Acquired absence of other specified parts of digestive tract; Z90.89 Acquired absence of other organs; Z90.710 Acquired absence of both cervix and uterus; Z86.73 Personal history of transient ischemic attack (TIA), and cerebral infarction without residual deficits; Z95.2 Presence of prosthetic heart valve
CPT/HCPCS: 36415; 77080; 80048; 81001; 85025; 86140; 87086; 97161-GP; 97530-GP; A9270-GY; J1650; J3010

== ENCOUNTER 2020-05-24 14:29 | Emergency (ER) | payer MEDICARE, OTHER ==
[2020-05-24] MEDS ORDERED: Ondansetron 4 MG/2 ML SDV IVPUSH STA (15:19)
[2020-05-24] MEDS ORDERED: Morphine 2 MG/ML SYRINGE IVPUSH ONE (15:19)
--- NOTE | 2020-05-24 15:25 | EDM.PDOC ---
ED HPI GENERAL MEDICAL PROBLEM - General Chief Complaint: General Stated Complaint: left hip pain Time Seen by Provider: 05/24/20 14:33 Source of Information: Reports: Patient History Limitations: Reports: No Limitations - History of Present Illness INITIAL COMMENTS - FREE TEXT/NARRATIVE: This patient reports she walking down steps. She reports she normally walks with a walker, but not at the time going down the steps. She reports she missed the last step. Patient reports falling to the ground on her left hip and hitting her head. Patient denies loc. Patient reports she had a headache initially, but this disappeared. She reports her only complaint is left hip pain. Onset: Today Onset Date: 05/24/20 Onset Time: 12:00 Location: Reports: Head, Lower Extremity, Left Severity: Moderate Improves with: Reports: Immobilization Worsens with: Reports: Movement Associated Symptoms: Reports: No Other Symptoms, Headaches (resolved). Denies: Confusion, Chest Pain, Cough, cough w sputum, Diaphoresis, Fever/Chills, Loss of Appetite, Malaise, Nausea/Vomiting, Rash, Seizure, Shortness of Breath, Syncope, Weakness Left Hip Pain Score (Numeric/FACES): 5 - Related Data Allergies Allergy/AdvReac Type Severity Reaction Status Date / Time clonidine Allergy Other Verified 05/24/20 14:30 Sulfa (Sulfonamide Allergy Hives Verified 05/24/20 14:30 Antibiotics) thiopental sodium Allergy Shortness Verified 05/24/20 14:30 [From Pentothal] of Breath corn AdvReac Muscle Verified 05/24/20 14:30 Aches Dairy Products AdvReac Muscle Verified 05/24/20 14:30 Aches gluten AdvReac Muscle Verified 05/24/20 14:30 Aches soy AdvReac Muscle Verified 05/24/20 14:30 Aches Edtbxrm-Fvy-Bfh Reductase AdvReac Muscle Verified 05/24/20 14:30 Inhibitor Aches Home Meds: Home Meds Levothyroxine [Synthroid] 100 mcg PO ACBREAKFAST 07/31/15 [History] rOPINIRole HCl [Requip] 0.5 mg PO TID 07/31/15 [History] Albuterol Sulfate [Proair Respiclick] 90 mcg INH ASDIRECTED PRN 09/16/16 [History] Aspirin [Halfprin] 81 mg PO DAILY 09/16/16 [History] Ascorbic Acid [Vitamin C] 1,000 mg PO BID 12/28/17 [History] Cholecalciferol (Vitamin D3) [Vitamin D3] 1,000 unit PO BID 12/28/17 [History] [place] [[place] Reeves] 3 cap PO TID 12/28/17 [History] [place] 660 mg PO BID 12/28/17 [History] Lactobacillus Acidophilus [Acidophilus] 1 each PO BID 12/28/17 [History] [place] Guerra Extract 75 mg PO TID 12/28/17 [History] Metoprolol Tartrate 50 mg PO DAILY 06/05/19 [History] cilostazoL [Cilostazol] 100 mg PO BID 07/22/19 [History] Acetaminophen/oxyCODONE [Percocet 325-5 MG] 1 tab PO Q8H PRN 01/07/20 [History] Cetirizine [ZyrTEC] 10 mg PO DAILY 01/07/20 [History] Metoprolol Tartrate 25 mg PO BEDTIME 01/07/20 [History] Pantoprazole Sodium [Protonix] 40 mg PO BID 01/07/20 [History] traMADol [Ultram] 50 mg PO Q6H PRN 01/07/20 [History] Past Medical History HEENT History: Reports: Impaired Vision Cardiovascular History: Reports: Heart Murmur, Heart Valve Replacement, High Cholesterol, Hypertension Other Cardiovascular History: aortic valve stenosis; had a valve that was malfunctioning, "racing heart", patient requested that they do it through [facility] procedure; Respiratory History: Reports: Asthma Other Respiratory History: recent pneumonia dx by mateus kenyon at clinic Genitourinary History: Reports: Urinary Incontinence STABLE ATTENDANT History: Reports: Musculoskeletal History: Reports: Arthritis Neurological History: Reports: CVA, Neuropathy, Peripheral Other Neuro History: Dec 2015 Psychiatric History: Reports: Anxiety, Depression Other Psychiatric History: says she has some depression; 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, 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, worked in [employer] Endocrine/Metabolic History: Reports: Hypothyroidism, Vitamin D Deficiency Hematologic History: Reports: Blood Transfusion(s) - Past Surgical History HEENT Surgical History: Reports: Cataract Surgery, Tonsillectomy Cardiovascular Surgical History: Reports: Valve Replacement Respiratory Surgical History: Reports: None GI Surgical History: Reports: Appendectomy Female Surgical History: Reports: Section, Hysterectomy Social & Family History - Family History Family Medical History: Noncontributory - Caffeine Use Caffeine Use: Reports: None ED ROS GENERAL - Review of Systems Review Of Systems: See Below Constitutional: Reports: No Symptoms HEENT: Reports: No Symptoms Respiratory: Reports: No Symptoms Cardiovascular: Reports: No Symptoms Endocrine: Reports: No Symptoms GI/Abdominal: Reports: No Symptoms. Denies: Nausea, Vomiting : Reports: No Symptoms Musculoskeletal: Reports: Joint Pain (left hip pain) Skin: Reports: No Symptoms Neurological: Reports: Headache (resolved), Difficulty Walking (due to left hip pain). Denies: Confusion, Dizziness, Numbness, Seizure, Syncope, Tingling, Trouble Speaking, Weakness, Change in Speech Psychiatric: Reports: No Symptoms Hematologic/Lymphatic: Reports: No Symptoms Immunologic: Reports: No Symptoms ED EXAM, GENERAL - Physical Exam Exam: See Below Exam Limited By: No Limitations General Appearance: Alert, WD/WN, No Apparent Distress Eye Exam: Bilateral Eye: EOMI, Normal Inspection, PERRL Ears: Normal External Exam, Normal Canal, Hearing Grossly Normal, Normal TMs Ear Exam: Bilateral Ear: Auricle Normal, Canal Normal, TM normal Nose: Normal Inspection, Normal Mucosa, No Blood Throat/Mouth: Normal Inspection, Normal Lips, Normal Teeth, Normal Gums, Normal Oropharynx, Normal Voice, No Airway Compromise Head: Atraumatic, Normocephalic. No: Facial Swelling, Facial Tenderness, Sinus Tenderness Neck: Normal Inspection, Supple, Non-Tender, Full Range of Motion Respiratory/Chest: No Respiratory Distress, Lungs Clear, Normal Breath Sounds, No Accessory Muscle Use, Chest Non-Tender Cardiovascular: Normal Peripheral Pulses, Regular Rate, Rhythm, No Edema, No JVD, No Rub, Systolic Murmur Peripheral Pulses: 2+: Radial (L), Radial (R), Femoral (L), Femoral (R), Popliteal (L), Popliteal (R), Posterior Tibial (L), Posterior Tibial (R), Dorsalis Pedis (L), Dorsalis Pedis (R) GI/Abdominal: Normal Bowel Sounds, Soft, Non-Tender, No Organomegaly, No Distention, No Abnormal Bruit, No Mass, Pelvis Stable Back Exam: Normal Inspection, Full Range of Motion. No: CVA Tenderness (L), CVA Tenderness (R), Decreased Range of Motion, Muscle Spasm, Paraspinal Tenderness, Vertebral Tenderness Extremities: No Pedal Edema, Normal Capillary Refill, Other (left posterior hip pain, mild shortening, mild rotation. Unable to bear weight. ) Neurological: Alert, Oriented, Sensory/Motor Deficit (mild right weakness leg. This is chronic from previous stroke. ). No: Confused Psychiatric: Normal Affect, Normal Mood Skin Exam: Warm, Dry, Intact, Normal Color, No Rash Lymphatic: No Adenopathy Course - Vital Signs Last Recorded V/S: Last Vital Signs Temp 97.2 F 05/24/20 14:36 Pulse Resp BP Pulse Ox - Orders/Labs/Meds Orders: Active Orders 24 hr Category Date Time Status Cervical Spine wo Cont [CT] Stat Exams 05/24/20 14:43 Taken Head wo Cont [CT] Stat Exams 05/24/20 14:42 Taken Hip Min 2V or 3V w Pelvis Lt [CR] Stat Exams 05/24/20 14:30 Taken Labs: Laboratory Tests 05/24/20 05/24/20 Range/Units 15:45 15:45 WBC 13.0 H (5.0-10.0) 10^3/uL RBC 4.29 (4.00-5.50) 10^6/uL Hgb 10.4 L (12.0-16.0) g/dL Hct 33.8 L (37.0-47.0) % MCV 78.8 L (82.0-94.0) fL MCH 24.2 L (27.0-32.0) pg MCHC 30.8 L (33.0-38.0) g/dL RDW Coeff of Bryson 16.5 H (11.0-15.0) % Plt Count 406 H (150-400) 10^3/uL Neut % (Auto) 84.5 (35-85) % Lymph % (Auto) 5.4 L (10-55) % [place] % (Auto) 8.2 (0-16) % Eos % (Auto) 0.9 (0-5) % Baso % (Auto) 1.0 (0-3) % Neut # (Auto) 10.99 H (1.80-7.00) 10^3/uL Lymph # (Auto) 0.70 L (1.00-4.80) 10^3/uL [place] # (Auto) 1.06 H (0.00-0.80) 10^3/uL Eos # (Auto) 0.12 (0.00-0.45) 10^3/uL Baso # (Auto) 0.13 10^3/uL Sodium 134 L (136-145) mEq/L Potassium 4.3 (3.5-5.0) mEq/L Chloride 97 L (98-106) mEq/L Carbon Dioxide 30 (21-32) mmol/L BUN 8 (7-18) mg/dL Creatinine 0.6 (0.6-1.0) mg/dL Est Cr Clr Drug Dosing TNP Estimated GFR (MDRD) > 60 (>=60) mL/min Glucose 106 H (75-99) mg/dL Calcium 8.9 (8.4-10.1) mg/dL Total Bilirubin 0.4 (0.0-1.0) mg/dL AST 18 (15-37) U/L ALT 21 (12-78) U/L Alkaline Phosphatase 88 (46-116) U/L Total Protein 7.6 (6.4-8.2) g/dL Albumin 3.8 (3.4-5.0) g/dL Meds: Medications Discontinued Medications Generic Name Dose Route Start Last Admin Trade Name Freq PRN Reason Stop Dose Admin Morphine Sulfate 2 mg 05/24/20 15:19 05/24/20 15:30 Morphine IVPUSH 05/24/20 15:20 2 mg ONETIME ONE Administration Ondansetron HCl 4 mg 05/24/20 15:19 05/24/20 15:30 Zofran IVPUSH 05/24/20 15:20 4 mg NOW STA Administration - Radiology Interpretation Free Text/Narrative:: Head Ct: No acute intracranial abnormality Left hip/Pelvis: left hip fracture which appears to be subcapital. There is irregulatiry involving the superior and inferior left pubic ramus. This is new from the prior studies examination and also there is evidence of some hypertrophic osseous changes associated. Potentially this may represent a more subacute process/fracture but acute component cannot be excluded. CT Results Date: 05/24/20 CT Results Time: 16:15 - Re-Assessments/Exams Free Text/Narrative Re-Assessment/Exam: 05/24/20 16:17 Spoke to surgeon orthopedic. He is currently in surgery, he will view images and call me back. 05/24/20 16:22 Dr. Gregorio ER physician has accepted the patient. Will transfer. Departure - Departure Time of Disposition: 16:17 Disposition: DC/Tfer to [facility] 02 Condition: Fair Clinical Impression: Closed left hip fracture Qualifiers: Encounter type: initial encounter Qualified Code(s): S72.002A - Fracture of unspecified part of neck of left femur, initial encounter for closed fracture - Discharge Information *PRESCRIPTION DRUG MONITORING PROGRAM REVIEWED*: Not Applicable *COPY OF PRESCRIPTION DRUG MONITORING REPORT IN PATIENT KANDICE: Not Applicable Forms: ED Department Discharge Sepsis Event Note (ED) - Focused Exam Vital Signs: Vital Signs Temp 05/24/20 14:36 97.2 F - My Orders Last 24 Hours: My Active Orders 05/24/20 14:30 Hip Min 2V or 3V w Pelvis Lt [CR] Stat 05/24/20 14:42 Head wo Cont [CT] Stat 05/24/20 14:43 Cervical Spine wo Cont [CT] Stat - Assessment/Plan Last 24 Hours: My Active Orders 05/24/20 14:30 Hip Min 2V or 3V w Pelvis Lt [CR] Stat 05/24/20 14:42 Head wo Cont [CT] Stat 05/24/20 14:43 Cervical Spine wo Cont [CT] Stat Plan: PLEASE SEE RN NOTE FOR [facility] Patient is being transferred. Patient risk vs benefits explained and accepted. The risk of transfer are mvc, , worsening of pain. The risk of staying in [place] is pain, no surgeon, . The benefits of staying in [place] is close to home. The benefits of transfer are higher level of care, orthopedic surgeon.
[2020-05-24 16:07] LABS: CHLORIDE,CL 97 mEq/L (98-106); SODIUM,NA 134 mEq/L (136-145)
== END 2020-05-24 16:30 ==
LOC: CC.ED 14:29
DX: S72.012A Unspecified intracapsular fracture of left femur, initial encounter for closed fracture (principal); E78.00 Pure hypercholesterolemia, unspecified; I10 Essential (primary) hypertension; J45.909 Unspecified asthma, uncomplicated; M19.90 Unspecified osteoarthritis, unspecified site; F41.9 Anxiety disorder, unspecified; F32.9 Major depressive disorder, single episode, unspecified; E03.9 Hypothyroidism, unspecified; G62.9 Polyneuropathy, unspecified; Z86.73 Personal history of transient ischemic attack (TIA), and cerebral infarction without residual deficits; W10.9XXA Fall (on) (from) unspecified stairs and steps, initial encounter; Z88.8 Allergy status to other drugs, medicaments and biological substances; Z88.2 Allergy status to sulfonamides; Z91.011 Allergy to milk products; Z91.018 Allergy to other foods; Z79.82 Long term (current) use of aspirin; Z79.899 Other long term (current) drug therapy
CPT/HCPCS: 36415; 70450; 72125; 73502; 80053; 85025; 96374; 96375; 99284; 99285; J2270; J2405

== ENCOUNTER 2020-07-07 13:42 | Inpatient (IN) | payer MEDICARE, OTHER ==
[2020-07-07 14:00] LABS: CHLORIDE,CL 97 mEq/L (98-106); SODIUM,NA 132 mEq/L (136-145)
[2020-07-07] MEDS ORDERED: Temazepam 15 MG Cap PO PRN (15:30)
[2020-07-07] MEDS ORDERED: Polyethylene Glycol 3350 Powder 17 GM Packet PO PRN (15:30)
[2020-07-07] MEDS ORDERED: Ondansetron 4 MG/2 ML SDV IV PRN (15:30)
[2020-07-07] MEDS ORDERED: Sodium Chloride 0.9% 1,000 ML IV SCH (15:30)
[2020-07-07] MEDS ORDERED: Docusate Sodium 100 MG Cap PO PRN (15:30)
[2020-07-07] MEDS ORDERED: Acetaminophen/oxyCODONE 325-5 MG Tab PO PRN (15:37)
[2020-07-07] MEDS ORDERED: traMADol 50 MG Tab PO PRN (15:37)
[2020-07-07] MEDS: Pantoprazole 40 MG Vial IVPUSH SCH (16:39)
[2020-07-07] MEDS: rOPINIRole 0.25 MG Tab PO SCH (19:28)
[2020-07-07] MEDS ORDERED: Albuterol 8 GM Inhaler INH PRN (19:55)
[2020-07-07] MEDS ORDERED: Metoprolol Tartrate 25 MG Tab PO SCH (20:00)
[2020-07-07] MEDS ORDERED: Cholecalciferol (Vitamin D3) 25 MCG Tab PO SCH (20:00)
[2020-07-07] MEDS ORDERED: LACTOBACILLUS ACIDOPHILUS PO SCH (20:00)
[2020-07-08] MEDS ORDERED: Levothyroxine 100 MCG Tab PO SCH (07:00)
[2020-07-08] MEDS: Pantoprazole 40 MG Vial IVPUSH SCH (07:34)
[2020-07-08] MEDS: rOPINIRole 0.25 MG Tab PO SCH (07:34)
[2020-07-08 07:36] VITALS: BP 151/85; PULSE 83
[2020-07-08 07:43] LABS: CHLORIDE,CL 104 mEq/L (98-106); SODIUM,NA 137 mEq/L (136-145)
[2020-07-08] MEDS ORDERED: Loratadine 10 MG Tab PO SCH (08:00)
[2020-07-08] MEDS ORDERED: Metoprolol Tartrate 25 MG Tab PO SCH (08:00)
--- NOTE | 2020-07-08 09:10 | PCM.DCSUM1 ---
Discharge Summary - Hospital Course Free Text/Narrative:: Gege is a 74 year old female who presented to the clinic to see Francesca Travis for increasing weakness. Relates that she had noted changes over the 5 days prior and felt similar to when she had issues with anemia in the past. Having difficulty with fatigue. Noted her heart rate was between 100-120 and blood pressure was low. Had noted dark stools. Had been placed on Eliquis due to history of blood clot. Had stool samples checked and were negative. Noted mild dizziness. No syncopal episodes. Labs noted. Hemoglobin low at 7.2. Tachycardic. Patient had recent EGD that did show healing ulcerations. Eliquis held. Plan for transfusion of 2 units PRBCs. Repeat labs in am. Had recent colonoscopy that was negative for any bleeding. Diagnosis: Stroke: No Modified Jacky Scale: No Symptoms at All Modified [place] Scale Score: 0 - Discharge Data Discharge Date: 07/08/20 Discharge Disposition: Home, Self-Care 01 Condition: Good - Referral to Home Health Primary Care Physician: Francesca Travis NP - Patient Summary/Data Complications: none Consults: Consultations 07/07/20 15:30 PT Evaluation and Treatment [CONS] Routine Hospital Course: Patient is feeling good. States strength is much improved. No nausea. No dizziness this am. Expresses difficulty with meal intake while here due to multiple allergies. Hemoglobin is up to 9.0 today. Blood pressure is stable. Other labs are normal. Will discharge home, follow up with Francesca on Tuesday and have repeat labs prior to appointment. - Patient Instructions Diet: Usual Diet as Tolerated Activity: As Tolerated - Discharge Plan *PRESCRIPTION DRUG MONITORING PROGRAM REVIEWED*: No *COPY OF PRESCRIPTION DRUG MONITORING REPORT IN PATIENT KANDICE: No Home Medications: Home Meds Levothyroxine [Synthroid] 100 mcg PO ACBREAKFAST 07/31/15 [History] rOPINIRole HCl [Requip] 0.5 mg PO TID 07/31/15 [History] Albuterol Sulfate [Proair Respiclick] 1 - 2 puff INH Q4HR PRN 09/16/16 [History] Aspirin [Halfprin] 81 mg PO DAILY 09/16/16 [History] Ascorbic Acid [Vitamin C] 2,000 mg PO DAILY 12/28/17 [History] Cholecalciferol (Vitamin D3) [Vitamin D3] 4,000 unit PO DAILY 12/28/17 [History] Lactobacillus Acidophilus [Acidophilus] 1 each PO DAILY 12/28/17 [History] [place] Extract 75 mg PO BID 12/28/17 [History] cilostazoL [Cilostazol] 100 mg PO BID 07/22/19 [History] Acetaminophen/oxyCODONE [Percocet 325-5 MG] 1 tab PO Q8H PRN 01/07/20 [History] Cetirizine [ZyrTEC] 10 mg PO BID 01/07/20 [History] Metoprolol Tartrate 25 mg PO BID 01/07/20 [History] Pantoprazole Sodium [Protonix] 40 mg PO DAILY 01/07/20 [History] Referrals: Francesca Travis [employer] [Primary Care Provider] - (Follow up with Francesca on Tuesday, lab prior to appointment) - Discharge Summary/Plan Comment DC Time >30 min.: No - General Info Date of Service: 07/08/20 Admission Dx/Problem (Free Text: Anemia Functional Status: Reports: Pain Controlled, Tolerating Diet, Ambulating - Review of Systems General: Reports: Weakness HEENT: Reports: No Symptoms Pulmonary: Denies: Shortness of Breath, Cough Cardiovascular: Denies: Chest Pain, Edema, Lightheadedness Gastrointestinal: Denies: Abdominal Pain, Nausea, Vomiting Genitourinary: Reports: No Symptoms Musculoskeletal: Reports: No Symptoms Skin: Reports: No Symptoms Neurological: Reports: Weakness - Patient Data Vitals - Most Recent: Last Vital Signs Temp 97.8 F 07/08/20 04:00 Pulse 83 07/08/20 07:33 Resp 18 07/08/20 04:00 BP 151/85 H 07/08/20 07:33 Pulse Ox 97 07/08/20 04:00 Weight - Most Recent: 141 lb 4.8 oz I&O - Last 24 hours: Intake & Output 07/07/20 07/08/20 07/08/20 22:59 06:59 14:59 Intake Total 675 Balance 675 Lab Results - Last 24 hrs: Laboratory Results - last 24 hr 07/07/20 07/07/20 07/07/20 Range/Units 13:45 13:45 14:00 WBC 6.9 (5.0-10.0) 10^3/uL RBC 2.58 L (4.00-5.50) 10^6/uL Hgb 7.2 L* (12.0-16.0) g/dL Hct 23.4 L (37.0-47.0) % MCV 90.7 (82.0-94.0) fL MCH 27.9 (27.0-32.0) pg MCHC 30.8 L (33.0-38.0) g/dL RDW Coeff of Bryson 22.1 H (11.0-15.0) % Plt Count 453 H (150-400) 10^3/uL Neut % (Auto) 71.5 (35-85) % Lymph % (Auto) 16.3 (10-55) % [place] % (Auto) 8.6 (0-16) % Eos % (Auto) 2.9 (0-5) % Baso % (Auto) 0.7 (0-3) % Neut # (Auto) 4.90 (1.80-7.00) 10^3/uL Lymph # (Auto) 1.12 (1.00-4.80) 10^3/uL [place] # (Auto) 0.59 (0.00-0.80) 10^3/uL Eos # (Auto) 0.20 (0.00-0.45) 10^3/uL Baso # (Auto) 0.05 10^3/uL Sodium 132 L (136-145) mEq/L Potassium 3.9 (3.5-5.0) mEq/L Chloride 97 L (98-106) mEq/L Carbon Dioxide 31 (21-32) mmol/L BUN 9 (7-18) mg/dL Creatinine 0.4 L (0.6-1.0) mg/dL Est Cr Clr Drug Dosing TNP Estimated GFR (MDRD) > 60 (>=60) mL/min Glucose 103 H (75-99) mg/dL Calcium 8.3 L (8.4-10.1) mg/dL Urine Color (YELLOW) Urine Appearance (CLEAR) Urine pH (4.5-8.0) Ur Specific [place] (1.003-1.020) Urine Protein (NEGATIVE) mg/dL Urine Glucose (UA) (NEGATIVE) mg/dL Urine Ketones (NEGATIVE) mg/dL Urine Occult Blood (NEGATIVE) Urine Nitrite (NEGATIVE) Urine Bilirubin (NEGATIVE) Urine Urobilinogen (0.2-1.0) EU/dL Ur Leukocyte Esterase (NEGATIVE) Urine RBC (0-5) /HPF Urine WBC (0-5) /HPF Ur Squamous Epith Cells (NOT SEEN) /HPF Blood Type A POSITIVE Gel Antibody Screen Negative Crossmatch See Detail 07/07/20 07/07/20 07/08/20 Range/Units 15:30 17:30 07:10 WBC (5.0-10.0) 10^3/uL RBC (4.00-5.50) 10^6/uL Hgb 7.0 L* (12.0-16.0) g/dL Hct 22.8 L (37.0-47.0) % MCV (82.0-94.0) fL MCH (27.0-32.0) pg MCHC (33.0-38.0) g/dL RDW Coeff of Bryson (11.0-15.0) % Plt Count (150-400) 10^3/uL Neut % (Auto) (35-85) % Lymph % (Auto) (10-55) % [place] % (Auto) (0-16) % Eos % (Auto) (0-5) % Baso % (Auto) (0-3) % Neut # (Auto) (1.80-7.00) 10^3/uL Lymph # (Auto) (1.00-4.80) 10^3/uL [place] # (Auto) (0.00-0.80) 10^3/uL Eos # (Auto) (0.00-0.45) 10^3/uL Baso # (Auto) 10^3/uL Sodium 137 (136-145) mEq/L Potassium 3.8 (3.5-5.0) mEq/L Chloride 104 (98-106) mEq/L Carbon Dioxide 27 (21-32) mmol/L BUN 7 (7-18) mg/dL Creatinine 0.4 L (0.6-1.0) mg/dL Est Cr Clr Drug Dosing 117.26 Estimated GFR (MDRD) > 60 (>=60) mL/min Glucose 82 (75-99) mg/dL Calcium 7.3 L (8.4-10.1) mg/dL Urine Color Yellow (YELLOW) Urine Appearance Clear (CLEAR) Urine pH 8.5 H (4.5-8.0) Ur Specific [place] 1.020 (1.003-1.020) Urine Protein Negative (NEGATIVE) mg/dL Urine Glucose (UA) Negative (NEGATIVE) mg/dL Urine Ketones Negative (NEGATIVE) mg/dL Urine Occult Blood Negative (NEGATIVE) Urine Nitrite Negative (NEGATIVE) Urine Bilirubin Negative (NEGATIVE) Urine Urobilinogen 0.2 (0.2-1.0) EU/dL Ur Leukocyte Esterase Small H (NEGATIVE) Urine RBC Not seen (0-5) /HPF Urine WBC 0-5 (0-5) /HPF Ur Squamous Epith Cells Few H (NOT SEEN) /HPF Blood Type Gel Antibody Screen Crossmatch 07/08/20 Range/Units 07:10 WBC 4.8 L (5.0-10.0) 10^3/uL RBC 3.20 L (4.00-5.50) 10^6/uL Hgb 9.0 L (12.0-16.0) g/dL Hct 28.4 L (37.0-47.0) % MCV 88.8 (82.0-94.0) fL MCH 28.1 (27.0-32.0) pg MCHC 31.7 L (33.0-38.0) g/dL RDW Coeff of Bryson 20.3 H (11.0-15.0) % Plt Count 386 (150-400) 10^3/uL Neut % (Auto) 61.7 (35-85) % Lymph % (Auto) 20.2 (10-55) % [place] % (Auto) 12.2 (0-16) % Eos % (Auto) 4.8 (0-5) % Baso % (Auto) 1.1 (0-3) % Neut # (Auto) 2.94 (1.80-7.00) 10^3/uL Lymph # (Auto) 0.96 L (1.00-4.80) 10^3/uL [place] # (Auto) 0.58 (0.00-0.80) 10^3/uL Eos # (Auto) 0.23 (0.00-0.45) 10^3/uL Baso # (Auto) 0.05 10^3/uL Sodium (136-145) mEq/L Potassium (3.5-5.0) mEq/L Chloride (98-106) mEq/L Carbon Dioxide (21-32) mmol/L BUN (7-18) mg/dL Creatinine (0.6-1.0) mg/dL Est Cr Clr Drug Dosing Estimated GFR (MDRD) (>=60) mL/min Glucose (75-99) mg/dL Calcium (8.4-10.1) mg/dL Urine Color (YELLOW) Urine Appearance (CLEAR) Urine pH (4.5-8.0) Ur Specific [place] (1.003-1.020) Urine Protein (NEGATIVE) mg/dL Urine Glucose (UA) (NEGATIVE) mg/dL Urine Ketones (NEGATIVE) mg/dL Urine Occult Blood (NEGATIVE) Urine Nitrite (NEGATIVE) Urine Bilirubin (NEGATIVE) Urine Urobilinogen (0.2-1.0) EU/dL Ur Leukocyte Esterase (NEGATIVE) Urine RBC (0-5) /HPF Urine WBC (0-5) /HPF Ur Squamous Epith Cells (NOT SEEN) /HPF Blood Type Gel Antibody Screen Crossmatch Med Orders - Current: Current Medications Albuterol (Ventolin Hfa) 0 gm INH Q4H PRN PRN Reason: Shortness of Breath Docusate Sodium (Colace) 100 mg PO BID PRN PRN Reason: Constipation Sodium Chloride (Normal Saline) 1,000 mls @ 75 mls/hr IV ASDIRECTED [facility] Last Admin: 07/07/20 16:40 Dose: 75 mls/hr Documented by: Levothyroxine Sodium (Synthroid) [address] [facility] Last Admin: 07/08/20 06:14 Dose: 100 mcg Documented by: Loratadine (Claritin) [address] [facility] Last Admin: 07/08/20 07:34 Dose: 10 mg Documented by: Metoprolol Tartrate (Lopressor) [address] [facility] Last Admin: 07/07/20 19:26 Dose: 25 mg Documented by: Metoprolol Tartrate (Lopressor) [address] [facility] Last Admin: 07/08/20 07:33 Dose: 50 mg Documented by: Ondansetron HCl (Zofran) 4 mg IV Q6H PRN PRN Reason: Nausea/Vomiting Oxycodone/Acetaminophen (Percocet 325-5 Mg) 1 tab PO Q8H PRN PRN Reason: Pain Pantoprazole Sodium (Protonix Iv) [address] [facility] Last Admin: 07/08/20 07:34 Dose: 40 mg Documented by: Polyethylene Glycol (Miralax) 17 gm PO DAILY PRN PRN Reason: Constipation Ropinirole HCl (Requip) 0.[address] [facility] Last Admin: 07/08/20 07:34 Dose: 0.5 mg Documented by: Temazepam (Restoril) 15 mg PO BEDTIME PRN PRN Reason: Sleep Last Admin: 07/07/20 22:39 Dose: 15 mg Documented by: Discontinued Medications Cholecalciferol (Vitamin D3) mcg PO BID [facility] Non-Formulary Medication (Lactobacillus Acidophilus [Acidophilus]) [address] [facility] Tramadol HCl (Ultram) 50 mg PO Q6H PRN PRN Reason: Pain - Exam General: Reports: Alert, Oriented HEENT: Reports: Mucous Membr. Moist/[place] Neck: Reports: Supple Lungs: Reports: Clear to Auscultation, Normal Respiratory Effort Cardiovascular: Reports: Regular Rate, Regular Rhythm GI/Abdominal Exam: Normal Bowel Sounds, Soft, Non-Tender Extremities: Normal Inspection, No Pedal Edema Skin: Reports: Warm, Dry Neurological: Reports: No New Focal Deficit *Q Meaningful Use (DIS) - VTE *Q VTE Anticoagulation Contraindications: Med/TX Not Indicated/Need
== END 2020-07-08 10:42 | disposition home or self-care (01) | DRG 812 ==
LOC: CC.FCMC 13:42 → UNDOADMIN 14:31 → CC.MS 14:31
PROVIDERS: ADMIT Nurse Practitioner Family; ATTEND Family Medicine
PROC: 30233N1 Transfusion of Nonautologous Red Blood Cells into Peripheral Vein, Percutaneous Approach (ICD-10-PCS; principal; 2020-07-07)
DX: D50.0 Iron deficiency anemia secondary to blood loss (chronic) (principal); K92.2 Gastrointestinal hemorrhage, unspecified; E87.1 Hypo-osmolality and hyponatremia; E03.9 Hypothyroidism, unspecified; E78.5 Hyperlipidemia, unspecified; J45.909 Unspecified asthma, uncomplicated; Z79.82 Long term (current) use of aspirin; Z79.899 Other long term (current) drug therapy; Z79.01 Long term (current) use of anticoagulants; Z88.2 Allergy status to sulfonamides; Z88.8 Allergy status to other drugs, medicaments and biological substances; Z91.018 Allergy to other foods; Z79.890 Hormone replacement therapy; Z90.710 Acquired absence of both cervix and uterus; Z90.49 Acquired absence of other specified parts of digestive tract
CPT/HCPCS: 36415; 36430; 80048; 81001; 85014; 85018; 85025; 86850; 86900; 86901; 86920; 86922; 93005; A9270-GY; C9113; J7030; P9016

== ENCOUNTER 2021-01-18 11:44 | Emergency (ER) | payer MEDICARE, OTHER ==
--- NOTE | 2021-01-18 12:02 | EDM.PDOC ---
ED HPI GENERAL MEDICAL PROBLEM - General Chief Complaint: Lower Extremity Injury/Pain Stated Complaint: "Right knee pain" Time Seen by Provider: 01/18/21 11:46 Source of Information: Reports: Patient History Limitations: Reports: No Limitations - History of Present Illness INITIAL COMMENTS - FREE TEXT/NARRATIVE: This patient is a 75 year old female that presents to the ER. Patient reports that since last night she started having right knee pain behind and medial to the right knee. Patient reports the pain also goes to the calf as well. Patient reports that she has not fallen or injured her knee that she knows of. Patient reports her was concerned of a blood clot to the RLE. Patient denies redness, heat, drainage, wounds, fever, vomiting. Onset Date: 01/17/21 Duration: Day(s): (1) Location: Reports: Lower Extremity, Right Quality: Reports: Ache Severity: Moderate Improves with: Reports: Immobilization Worsens with: Reports: Movement Associated Symptoms: Reports: No Other Symptoms - Related Data Allergies Allergy/AdvReac Type Severity Reaction Status Date / Time clonidine Allergy Other Verified 01/18/21 11:54 Sulfa (Sulfonamide Allergy Hives Verified 01/18/21 11:54 Antibiotics) thiopental sodium Allergy Shortness Verified 01/18/21 11:54 [From Pentothal] of Breath corn AdvReac Muscle Verified 01/18/21 11:54 Aches Dairy Products AdvReac Muscle Verified 01/18/21 11:54 Aches gluten AdvReac Muscle Verified 01/18/21 11:54 Aches soy AdvReac Muscle Verified 01/18/21 11:54 Aches Vkehwlb-Zsv-[id number] Reductase AdvReac Muscle Verified 01/18/21 11:54 Inhibitor Aches Home Meds: Home Meds Levothyroxine [Synthroid] 100 mcg PO ACBREAKFAST 07/31/15 [History] rOPINIRole HCl [Requip] 0.5 mg PO TID 07/31/15 [History] Albuterol Sulfate [Proair Respiclick] 1 - 2 puff INH Q4HR PRN 09/16/16 [History] Aspirin [Halfprin] 81 mg PO DAILY 09/16/16 [History] Ascorbic Acid [Vitamin C] 2,000 mg PO DAILY 12/28/17 [History] Cholecalciferol (Vitamin D3) [Vitamin D3] 4,000 unit PO DAILY 12/28/17 [History] Lactobacillus Acidophilus [Acidophilus] 1 each PO DAILY 12/28/17 [History] [place] Extract 75 mg PO BID 12/28/17 [History] cilostazoL [Cilostazol] 100 mg PO BID 07/22/19 [History] Acetaminophen/oxyCODONE [Percocet 325-5 MG] 1 tab PO Q8H PRN 01/07/20 [History] Cetirizine [ZyrTEC] 10 mg PO BID 01/07/20 [History] Metoprolol Tartrate 25 mg PO BID 01/07/20 [History] Pantoprazole Sodium [Protonix] 40 mg PO DAILY 01/07/20 [History] amLODIPine [Norvasc] 5 mg PO DAILY 01/18/21 [History] Past Medical History HEENT History: Reports: Impaired Vision Cardiovascular History: Reports: Heart Murmur, Heart Valve Replacement, High Cholesterol, Hypertension Other Cardiovascular History: aortic valve stenosis; had a valve that was malfunctioning, "racing heart", patient requested that they do it through [facility] procedure; Respiratory History: Reports: Asthma Other Respiratory History: recent pneumonia dx by [facility] Gastrointestinal History: Reports: None Genitourinary History: Reports: Urinary Incontinence [employer] History: Reports: Musculoskeletal History: Reports: Arthritis Neurological History: Reports: CVA, Neuropathy, Peripheral, Other (See Below) Other Neuro History: benign tremor Psychiatric History: Reports: Anxiety, Depression Other Psychiatric History: says she has some depression; 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, 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, worked in [employer] Endocrine/Metabolic History: Reports: Hypothyroidism, Vitamin D Deficiency Hematologic History: Reports: Blood Transfusion(s) - Past Surgical History HEENT Surgical History: Reports: Cataract Surgery, Tonsillectomy Cardiovascular Surgical History: Reports: Valve Replacement Respiratory Surgical History: Reports: None GI Surgical History: Reports: Colonoscopy, EGD Female Surgical History: Reports: Section, D&C, Hysterectomy Endocrine Surgical History: Reports: None Neurological Surgical History: Reports: None Musculoskeletal Surgical History: Reports: Hip Replacement Dermatological Surgical History: Reports: None Social & Family History - Family History Family Medical History: No Pertinent Family History - Caffeine Use Caffeine Use: Reports: None Review of Systems - Review of Systems Review Of Systems: See Below Constitutional: Reports: No Symptoms Eyes: Reports: No Symptoms Ears: Reports: No Symptoms Nose: Reports: No Symptoms Mouth/Throat: Reports: No Symptoms Respiratory: Reports: No Symptoms Cardiovascular: Reports: No Symptoms GI/Abdominal: Reports: No Symptoms Genitourinary: Reports: No Symptoms Musculoskeletal: Reports: Leg Pain (Right LE), Joint Pain (Right knee) Skin: Reports: No Symptoms. Denies: Erythema Neurological: Reports: No Symptoms Psychiatric: Reports: No Symptoms ED EXAM, GENERAL - Physical Exam Exam: See Below Exam Limited By: No Limitations General Appearance: Alert, WD/WN, No Apparent Distress Eye Exam: Bilateral Eye: Normal Inspection, PERRL Throat/Mouth: Normal Inspection, Normal Lips, Normal Voice, No Airway Compromise Head: Atraumatic, Normocephalic Respiratory/Chest: No Respiratory Distress, Lungs Clear, Normal Breath Sounds, No Accessory Muscle Use Cardiovascular: Normal Peripheral Pulses, Regular Rate, Rhythm, No Edema, No Gallop, No JVD, No Murmur, No Rub Peripheral Pulses: 2+: Radial (L), Radial (R), Femoral (L), Femoral (R), Popliteal (L), Popliteal (R), Posterior Tibial (L), Posterior Tibial (R), Dorsalis Pedis (L), Dorsalis Pedis (R) GI/Abdominal: Soft, Non-Tender Extremities: Normal Inspection, Normal Range of Motion, Other (mild tenderness to the medial right knee, posterior right knee. No redness, no swelling, no wounds, no heat, to RLE. Pulses +2, cap refill < 2 sec, sensory/motor function intact. Neurovascular intact. ) Neurological: Alert, Oriented Psychiatric: Normal Affect, Normal Mood Skin Exam: Warm, Dry, Intact, Normal Color, No Rash. No: Erythema Course - Orders/Labs/Meds Orders: Active Orders 24 hr Category Date Time Status Knee 3V Rt [CR] Stat Exams 01/18/21 11:46 Taken Labs: Laboratory Tests 01/18/21 01/18/21 Range/Units 11:50 11:50 WBC 6.6 (5.0-10.0) 10^3/uL RBC 4.14 (4.00-5.50) 10^6/uL Hgb 10.6 L (12.0-16.0) g/dL Hct 34.1 L (37.0-47.0) % MCV 82.4 (82.0-94.0) fL MCH 25.6 L (27.0-32.0) pg MCHC 31.1 L (33.0-38.0) g/dL RDW Coeff of Bryson 15.1 H (11.0-15.0) % Plt Count 382 (150-400) 10^3/uL Neut % (Auto) 75.3 (35-85) % Lymph % (Auto) 10.0 (10-55) % [place] % (Auto) 8.5 (0-16) % Eos % (Auto) 4.7 (0-5) % Baso % (Auto) 1.5 (0-3) % Neut # (Auto) 4.96 (1.80-7.00) 10^3/uL Lymph # (Auto) 0.66 L (1.00-4.80) 10^3/uL [place] # (Auto) 0.56 (0.00-0.80) 10^3/uL Eos # (Auto) 0.31 (0.00-0.45) 10^3/uL Baso # (Auto) 0.10 10^3/uL D-Dimer, Quantitative 3.03 H (0.00-0.50) - Radiology Interpretation Free Text/Narrative:: Right knee: No fracture, no dislocation, no FB. - Re-Assessments/Exams Free Text/Narrative Re-Assessment/Exam: 01/18/21 12:27 Patient has no redness, heat, drainage, normal wbc, no fever. I do not see current evidence to cellulitis or infectious source. Patient D-Dimer is elevated. No US capabilities today. I will schedule for out patient US of the RLE to rule out DVT. However, I will not start this patient on a blood thinner without confirmation of a DVT. Reason, patient reports she does have a history of bleeding internally. She reports that she got a GI bleed, ulcer from her blood thinner and almost per patient. Patient and I discussed risk vs benefits of a blood thinner without a confirmed DVT. She agrees to wait until the US is performed. She is educated when to return to the ER. Departure - Departure Time of Disposition: 12:30 Disposition: Home, Self-Care 01 Condition: Fair Clinical Impression: Leg pain, right - Discharge Information *PRESCRIPTION DRUG MONITORING PROGRAM REVIEWED*: Not Applicable *COPY OF PRESCRIPTION DRUG MONITORING REPORT IN PATIENT KANDICE: Not Applicable Instructions: Knee Sprain, Adult, [id number] Forms: ED Department Discharge Additional Instructions: Radiology will call you tomorrow morning to schedule an Ultrasound of your leg If you do not hear from Radiology by 10am, please call them at [phone] Rest your leg Followup with your primary care provider by calling Tuesday and making an appointment following your Ultrasound - My Orders Last 24 Hours: My Active Orders 01/18/21 11:46 Knee 3V Rt [CR] Stat - Assessment/Plan Last 24 Hours: My Active Orders 01/18/21 11:46 Knee 3V Rt [CR] Stat Plan: PLEASE SEE RN NOTE FOR PFSH
[2021-01-18 13:44] VITALS: BP 163/86; PULSE 95
== END 2021-01-18 12:41 | disposition home or self-care (01) ==
LOC: CC.ED 11:44
DX: M25.561 Pain in right knee (principal); I10 Essential (primary) hypertension; J45.909 Unspecified asthma, uncomplicated; M19.90 Unspecified osteoarthritis, unspecified site; E03.9 Hypothyroidism, unspecified; Z88.8 Allergy status to other drugs, medicaments and biological substances; Z88.2 Allergy status to sulfonamides; Z91.018 Allergy to other foods; Z79.82 Long term (current) use of aspirin; Z79.899 Other long term (current) drug therapy
CPT/HCPCS: 36415; 73562-RT; 85025; 85379; 99283; 99283-25

== ENCOUNTER 2021-06-22 14:28 | Observation (INO) | payer MEDICARE, OTHER ==
[2021-06-22 14:57] LABS: CHLORIDE,CL 99 mEq/L (98-106); SODIUM,NA 142 mEq/L (136-145)
[2021-06-22] MEDS ORDERED: Sodium Chloride 0.9% 10 ML Syringe FLUSH PRN (16:15)
[2021-06-22] MEDS ORDERED: Albuterol 0.083% 2.5 MG/3 ML Neb Soln INH PRN (16:22)
[2021-06-22] MEDS ORDERED: traMADol 50 MG Tab PO PRN (16:22)
[2021-06-22] MEDS: Pantoprazole 40 MG Vial IVPUSH SCH (19:27)
[2021-06-22] MEDS: OLIVE LEAF EXTRACT PO SCH (20:00)
[2021-06-23 07:20] LABS: CHLORIDE,CL 100 mEq/L (98-106); SODIUM,NA 140 mEq/L (136-145)
[2021-06-23] MEDS ORDERED: Non-Formulary Medication 1 Each (Budesonide/Formoterol Fumarate 6 GM Hfa.Aer.Ad) INH SCH (08:00)
[2021-06-23] MEDS ORDERED: amLODIPine 2.5 MG Tab PO SCH (08:00)
[2021-06-23] MEDS: LUTEIN 20 MG PO SCH (08:53)
[2021-06-23] MEDS: ESCITALOPRAM OXALATE 10 MG PO SCH (08:54)
[2021-06-23] MEDS: Metoprolol Tartrate 50 MG Tab **PTOM PO SCH ×2 (08:55→19:40)
[2021-06-23] MEDS: AMLODIPINE 5 MG PO SCH (08:56)
[2021-06-23] MEDS: ROPINIROLE 0.5 MG PO SCH ×3 (08:57→19:39)
[2021-06-23] MEDS: ZINC 50 MG PO SCH (08:57)
[2021-06-23] MEDS: Potassium Gluconate (99 MG) 2 MEQ Tab PO SCH (09:01)
[2021-06-23] MEDS: Ascorbic Acid 500 MG Tab PO SCH ×2 (09:01→17:43)
[2021-06-23] MEDS: Loratadine 10 MG Tab PO SCH (09:01)
[2021-06-23] MEDS: Calcium Carbonate/Vitamin D3 1250 MG-5 MCG Tab PO SCH (09:01)
[2021-06-23] MEDS: Cholecalciferol (Vitamin D3) 25 MCG Tab PO SCH (09:01)
[2021-06-23] MEDS: SELENIUM 100 MCG PO SCH ×2 (09:04→19:41)
[2021-06-23] MEDS: PB8 PROBIOTIC PO SCH ×2 (10:00→19:44)
[2021-06-23] MEDS ORDERED: amLODIPine 10 MG Tab PO SCH (10:00)
[2021-06-23] MEDS: Docusate Sodium 100 MG Cap PO SCH (10:01)
[2021-06-23] MEDS ORDERED: Potassium Chloride Riders 40 MEQ in Premix Bag 1 BAG IV ONE (10:30)
[2021-06-23] MEDS: OLIVE LEAF EXTRACT PO SCH ×2 (11:28→19:42)
[2021-06-23] MEDS ORDERED: ALBUTEROL SULFATE PO PRN (11:51)
--- NOTE | 2021-06-23 12:28 | PN ---
DATE: 06/23/2021 S: Gege was admitted by Francesca for chest pain that was atypical in nature. She had 2 negative cardiac enzymes. EKG shows no ischemia. She has some chronic ongoing issues including some GI reflux and chronic GI bleeding. She drops her hemoglobins and is iron-deficient. She does not take oral iron for a variety of reasons, but nevertheless, her MCV is quite low and her hemoglobin was 8 at the time of admit. She has seen GI in the next weeks for I believe repeat endoscopy. She has never had a capsule endoscopy which I suspect she needs as they have been unable to find the source of her GI blood loss. Blood pressures were really high on admit and they remained that way in my experience of this patient. She has been very resistant to blood pressure medications. O: GENERAL: She is in her usual state. She appears in no distress. HEENT: Grossly benign. NECK: Supple. Veins are flat. LUNGS: Clear. CARDIAC: Tones are regular. ABDOMEN: She has no abdominal pain to palpation. EXTREMITIES: No peripheral edema. ASSESSMENT: 1. ATYPICAL CHEST PAIN, RESOLVED. 2. CHRONIC GASTROINTESTINAL BLEED WITH IRON-DEFICIENCY ANEMIA. 3. HYPERTENSION, UNCONTROLLED. 4. CHRONIC GASTROESOPHAGEAL REFLUX DISEASE. 5. HYPOTHYROIDISM. 6. HYPOKALEMIA. P: I am going to add Norvasc for blood pressure control with pressures been running anywhere from 160 to 180 systolic. She will get iron studies today. I talked to her at length about maybe having an iron transfusion while she is here to try to boost her hemoglobins and she is willing to do that. Her potassium is low from admit and I will get a magnesium level today. We will give her a 40 mEq bump of potassium. Otherwise, no other changes. We do have occult blood screens ordered. However, this is a chronic issue for this patient. WENDI/SATINDER /[id number]
[2021-06-23] MEDS: HAWTHORN BERRY 565 MG PO SCH (17:43)
[2021-06-23] MEDS: Pantoprazole 40 MG Vial IVPUSH SCH (19:45)
[2021-06-23] MEDS ORDERED: MONTELUKAST 10 MG PO SCH (20:00)
[2021-06-24 07:21] LABS: CHLORIDE,CL 100 mEq/L (98-106); SODIUM,NA 139 mEq/L (136-145)
[2021-06-24] MEDS: Ascorbic Acid 500 MG Tab PO SCH (07:53)
[2021-06-24] MEDS: Calcium Carbonate/Vitamin D3 1250 MG-5 MCG Tab PO SCH (07:53)
[2021-06-24] MEDS: Docusate Sodium 100 MG Cap PO SCH (07:54)
[2021-06-24] MEDS: Loratadine 10 MG Tab PO SCH (07:54)
[2021-06-24] MEDS: Potassium Gluconate (99 MG) 2 MEQ Tab PO SCH (07:54)
[2021-06-24] MEDS: Cholecalciferol (Vitamin D3) 25 MCG Tab PO SCH (07:55)
[2021-06-24] MEDS: LUTEIN 20 MG PO SCH (07:56)
[2021-06-24] MEDS: ROPINIROLE 0.5 MG PO SCH (07:56)
[2021-06-24] MEDS: OLIVE LEAF EXTRACT PO SCH (07:56)
[2021-06-24] MEDS: HAWTHORN BERRY 565 MG PO SCH (07:57)
[2021-06-24] MEDS: PB8 PROBIOTIC PO SCH (07:57)
[2021-06-24] MEDS: SELENIUM 100 MCG PO SCH (07:58)
[2021-06-24] MEDS: ESCITALOPRAM OXALATE 10 MG PO SCH (07:58)
[2021-06-24] MEDS: ZINC 50 MG PO SCH (07:58)
[2021-06-24] MEDS: Metoprolol Tartrate 50 MG Tab **PTOM PO SCH (07:59)
[2021-06-24] MEDS: AMLODIPINE 5 MG PO SCH (07:59)
[2021-06-24] MEDS ORDERED: Aspirin 81 MG Tab.EC PO SCH (08:00)
[2021-06-24 11:20] VITALS: PULSE 63
[2021-06-24 12:02] VITALS: BP 189/84
[2021-06-24] MEDS ORDERED: Potassium Gluconate (99 MG) 2 MEQ Tab PO SCH (14:00)
--- NOTE | 2021-06-25 07:38 | PCM.DCSUM1 ---
Discharge Summary - Hospital Course Free Text/Narrative:: Gege is a 75 year old female presented to see Francesca in the clinic for episodic chest pain, worsened by activity. Pain radiates down her arms to her elbows. No shortness of breath. She states had been occurring up to 3 times per day. Was getting relief with using her mauricio reeves capsules. History of severe aortic regurgitation/stenosis s/p TAVR. Known CAD with left heart cath. Known history of hypertension, noncompliant with meds. Takes Amlodipine as needed. Also has been having swallowing issues. Will be seeing GI later in June. Not aware of any black or tarry stools. Labs done. Hemoglobin down to 8.2, down 2 grams from prior. Chest xray negative. Obtain fecal occult blood screen. Monitor telemetry and serial enzymes as some change in EKG noted. Admitted to observation. Diagnosis: Stroke: No Modified Craig Scale: No Symptoms at All Modified Jacky Scale Score: 0 - Discharge Data Discharge Date: 06/24/21 Discharge Disposition: Home, Home Health Agency Condition: Good - Referral to Home Health Date of Face to Face Encounter: 06/24/21 Reason for Homebound Status: Weakness Primary Care Physician: Francesca Travis NP Skilled Need: Home Health Care nursing to monitor blood pressure, med compliance. Physical therapy for strengthening, occupational therapy for assist with ADLs. - Discharge Diagnosis/Problem(s) (1) Anemia SNOMED Code(s): 082572441 ICD Code: D64.9 - ANEMIA, UNSPECIFIED Status: Acute Priority: High Qualifiers: Anemia type: iron deficiency - Patient Summary/Data Complications: none Consults: Consultations 06/22/21 16:15 PT Evaluation and Treatment [CONS] Routine Hospital Course: Gege is doing well today. Has been ambulating now. Appetite is good. FOB was done and was positive. Is seeing GI in one week for possible endoscopy. On Protonix. Iron studies were done and were quite low as hemoglobin lower than her norm and has not been able to tolerate oral iron. Given iron infusion today. Has been noncompliant with blood pressure meds. Was restarted daily on her Norvasc and blood pressure still high so was increased to 10 mg daily. Cardiac enzymes were negative. Discharge home on increased Norvasc. Will have repeat labs prior to Francesca's appointment next week and follow up with GI as planned. - Patient Instructions Diet: Usual Diet as Tolerated Activity: As Tolerated - Discharge Plan *PRESCRIPTION DRUG MONITORING PROGRAM REVIEWED*: No *COPY OF PRESCRIPTION DRUG MONITORING REPORT IN PATIENT KANDICE: No Prescriptions/Med Rec: amLODIPine Besylate [Norvasc] 10 mg PO BEDTIME #30 tablet Potassium Gluconate 2 meq PO TID #90 tablet Home Medications: Home Meds Levothyroxine [Synthroid] 100 mcg PO ACBREAKFAST 07/31/15 [History] rOPINIRole HCl [Requip] 0.5 mg PO TID 07/31/15 [History] Albuterol Sulfate [Proair Respiclick] 1 - 2 puff INH Q4HR PRN 09/16/16 [History] Ascorbic Acid [Vitamin C] 1,000 mg PO BID 12/28/17 [History] Cholecalciferol (Vitamin D3) [Vitamin D3] 1,000 unit PO BID 12/28/17 [History] Lactobacillus Acidophilus [Acidophilus] 1,000 mg PO BID 12/28/17 [History] [place] Extract 75 mg PO BID 12/28/17 [History] cilostazoL [Cilostazol] 100 mg PO BID 07/22/19 [History] Cetirizine [ZyrTEC] 10 mg PO BID 01/07/20 [History] Metoprolol Tartrate 50 mg PO BID 01/07/20 [History] Albuterol Sulfate 1 inh INH QID PRN 06/22/21 [History] Budesonide/Formoterol Fumarate [Symbicort 160-4.5 Mcg Inhaler] 2 inh INH DAILY 06/22/21 [History] Calcium Carb/Vit D3/Minerals [Calcium 600+D Plus Minerals] 4 tab PO DAILY 06/22/21 [History] Diclofenac Sodium [Diclo Gel] 1 applic TOP TID PRN 06/22/21 [History] Escitalopram Oxalate 10 mg PO DAILY 06/22/21 [History] [place] [[place]] 1 tab PO ASDIRECTED 06/22/21 [History] Lutein 20 mg PO DAILY 06/22/21 [History] Magnesium 200 mg PO ASDIRECTED 06/22/21 [History] Montelukast Sodium 10 mg PO BEDTIME 06/22/21 [History] Selenium 100 mcg PO BID 06/22/21 [History] Zinc 50 mg PO DAILY 06/22/21 [History] traMADol HCl [Tramadol HCl] 25 mg PO Q6H PRN 06/22/21 [History] Albuterol Sulfate [Albuterol Sulfate HFA] 1 - 2 inh PO Q4H PRN 06/23/21 [History] Aspirin [Aspirin EC] 81 mg PO DAILY 06/23/21 [History] [place] 3 mg PO DAILY 06/23/21 [History] Bromelains [Bromelain] 100 mg PO TIDMEALS 06/23/21 [History] Cider Vinegar [Apple Cider Vinegar] 1,250 mg PO TID 06/23/21 [History] Docusate Sodium [Colace] 100 mg PO DAILY 06/23/21 [History] Kelp 1 cap PO DAILY 06/23/21 [History] Licorice,Deglycyrrhizinated [Deglycyrrhizinated Licorice] 1 cap PO TID 06/23/21 [History] Non-Formulary Medication [NF Drug] 12.5 mg PO DAILY 06/23/21 [History] Non-Formulary Medication [NF Drug] 900 mg PO TID 06/23/21 [History] Pantoprazole Sodium [Protonix] 40 mg PO DAILY 06/23/21 [History] Turmeric Root Extract [Turmeric] 1,440 mg PO DAILY 06/23/21 [History] Potassium Gluconate 2 meq PO TID #90 tablet 06/24/21 [Rx] amLODIPine Besylate [Norvasc] 10 mg PO BEDTIME #30 tablet 06/24/21 [Rx] Referrals: Francesca Travis COMMISSIONING EDITOR [Primary Care Provider] - (Follow up with Francesca on the 06 of July for recheck. Labs prior to visit) - Discharge Summary/Plan Comment DC Time >30 min.: No Total # of Minutes for Discharge Time: 20 minutes - General Info Date of Service: 06/24/21 Admission Dx/Problem (Free Text: Anemia Chest Pain Functional Status: Reports: Pain Controlled, Tolerating Diet, Ambulating - Review of Systems General: Reports: Weakness, Fatigue. Denies: Fever, Malaise HEENT: Denies: Ear Pain, Sinus Congestion, Sore Throat Pulmonary: Reports: Shortness of Breath. Denies: Cough Cardiovascular: Denies: Chest Pain, Edema, Lightheadedness Gastrointestinal: Denies: Abdominal Pain, Nausea, Vomiting Genitourinary: Reports: No Symptoms Musculoskeletal: Reports: No Symptoms Skin: Reports: Pallor Neurological: Reports: Weakness - Patient Data Vitals - Most Recent: Last Vital Signs Temp 98.5 F 06/24/21 12:00 Pulse 63 06/24/21 12:00 Resp 15 06/24/21 12:00 BP 189/84 H 06/24/21 12:00 Pulse Ox 95 06/24/21 12:00 Weight - Most Recent: 157 lb 11.2 oz Med Orders - Current: Current Medications Discontinued Medications Albuterol (Albuterol 0.083% 2.5 Mg/3 Ml Neb Soln) 2.5 mg INH QID PRN PRN Reason: Shortness of Breath Amlodipine Besylate (Amlodipine 2.5 Mg Tab) 5 mg PO DAILY [facility] Last Admin: 06/23/21 08:00 Dose: Not Given Documented by: Amlodipine Besylate (Amlodipine 10 Mg Tab) 5 mg PO DAILY [facility] Last Admin: 06/23/21 08:00 Dose: Not Given Documented by: Amlodipine Besylate (Amlodipine 5 Mg Tab Ptom) 5 mg PO ONETIME ONE Stop: 06/24/21 08:16 Last Admin: 06/24/21 09:03 Dose: 5 mg Documented by: Ascorbic Acid (Ascorbic Acid 500 Mg Tab) 1,000 mg PO BIDMEALS [facility] Last Admin: 06/24/21 07:53 Dose: 1,000 mg Documented by: Aspirin (Aspirin 81 Mg Tab.Ec) 81 mg PO DAILY [facility] Last Admin: 06/24/21 07:54 Dose: 81 mg Documented by: Calcium Carbonate (Calcium Carbonate/Vitamin D3 1250 Mg-5 Mcg Tab) 2 tab PO DAILY [facility] Last Admin: 06/24/21 07:53 Dose: 2 tab Documented by: Cholecalciferol (Cholecalciferol (Vitamin D3) 25 Mcg Tab) 125 mcg PO DAILY [facility] Last Admin: 06/24/21 07:55 Dose: 125 mcg Documented by: Docusate Sodium (Docusate Sodium 100 Mg Cap) 100 mg PO DAILY [facility] Last Admin: 06/24/21 07:54 Dose: 100 mg Documented by: Potassium Chloride 40 meq/ (Premix) 100 mls @ 25 mls/hr IV ONETIME ONE Stop: 06/23/21 14:29 Last Admin: 06/23/21 10:30 Dose: 25 mls/hr Documented by: Iron Sucrose 400 mg/ Sodium (Chloride) 270 mls @ 108 mls/hr IV ONETIME ONE Stop: 06/24/21 11:59 Last Admin: 06/24/21 09:48 Dose: 108 mls/hr Documented by: Levothyroxine Sodium (Levothyroxine 100 Mcg Tab Ptom) 100 mcg PO ACBREAKFAST [facility] Last Admin: 06/24/21 06:17 Dose: 100 mcg Documented by: Loratadine (Loratadine 10 Mg Tab) 10 mg PO DAILY [facility] Last Admin: 06/24/21 07:54 Dose: 10 mg Documented by: Magnesium Oxide (Magnesium Oxide 250 Mg Tab) 250 mg PO BID [facility] Last Admin: 06/24/21 07:54 Dose: 250 mg Documented by: Metoprolol Tartrate (Metoprolol Tartrate 50 Mg Tab Ptom) 50 mg PO BID [facility] Last Admin: 06/24/21 07:59 Dose: 50 mg Documented by: Montelukast Sodium (Montelukast 10 Mg Tab Ptom) 10 mg PO BEDTIME [facility] Last Admin: 06/23/21 19:41 Dose: 10 mg Documented by: Non-Formulary Medication (Budesonide/Formoterol Fumarate) 2 inh INH DAILY [facility] Escitalopram Oxalate 10 Mg Tablet Ptom 10 mg PO DAILY [facility] Last Admin: 06/24/21 07:58 Dose: 10 mg Documented by: Laura Reeves 565 (Mg Capsule Ptom) 1 tab PO BIDMEALS [facility] Last Admin: 06/24/21 07:57 Dose: 1 tab Documented by: [id number] Probiotic Tablet (Ptom) 0 mg PO BID [facility] Last Admin: 06/24/21 07:57 Dose: 1 mg Documented by: Lutein 20 Mg Capsule (Ptom) 20 mg PO DAILY [facility] Last Admin: 06/24/21 07:56 Dose: 20 mg Documented by: [place] Extract 500 Mg Capsule Ptom 500 mg PO BID [facility] Last Admin: 06/24/21 07:56 Dose: 500 mg Documented by: Ropinirole 0.5mg Tab (Ptom) 0 each PO TID [facility] Last Admin: 06/24/21 07:56 Dose: 1 each Documented by: Selenium 100 Mcg Cap (Ptom) 100 mcg PO BID [facility] Last Admin: 06/24/21 07:58 Dose: 100 mcg Documented by: Zinc 50 Mg Tablet (Ptom) 50 mg PO DAILY [facility] Last Admin: 06/24/21 07:58 Dose: 50 mg Documented by: Amlodipine 5mg (Ptom) 0 each PO DAILY [facility] Last Admin: 06/24/21 07:59 Dose: 1 each Documented by: Albuterol Sulfate 8. 5 Gm Inhaler Ptom* * 1 - 2 inh PO Q4H PRN PRN Reason: Shortness of Breath Pantoprazole Sodium (Pantoprazole 40 Mg Vial) 40 mg IVPUSH Q24H [facility] Last Admin: 06/23/21 19:45 Dose: 40 mg Documented by: Potassium (Potassium Gluconate (99 Mg) 2 Meq Tab) 2 meq PO DAILY [facility] Last Admin: 06/24/21 07:54 Dose: 2 meq Documented by: Potassium (Potassium Gluconate (99 Mg) 2 Meq Tab) 2 meq PO TID [facility] Sodium Chloride (Sodium Chloride 0.9% 10 Ml Syringe) 10 ml FLUSH ASDIRECTED PRN PRN Reason: Keep Vein Open Tramadol HCl (Tramadol 50 Mg Tab) 25 mg PO Q6H PRN PRN Reason: Pain - Exam General: Reports: Alert, Oriented HEENT: Reports: Mucous Membr. Moist/[place] Neck: Reports: Supple Lungs: Reports: Clear to Auscultation, Normal Respiratory Effort, Decreased Breath Sounds Cardiovascular: Reports: Regular Rate, Regular Rhythm GI/Abdominal Exam: Normal Bowel Sounds, Soft, Non-Tender Extremities: Normal Inspection, No Pedal Edema Skin: Reports: Warm, Dry Neurological: Reports: No New Focal Deficit *Q Meaningful Use (DIS) - VTE *Q VTE Anticoagulation Contraindications: Medical/Procedure Contrai
== END 2021-06-24 13:10 | disposition home health service (06) ==
LOC: CC.FCMC 14:28 → CC.MS 14:28
PROVIDERS: ADMIT Nurse Practitioner Family; ATTEND Family Medicine
DX: R07.89 Other chest pain (principal); K92.2 Gastrointestinal hemorrhage, unspecified; D50.9 Iron deficiency anemia, unspecified; I10 Essential (primary) hypertension; K21.00 Gastro-esophageal reflux disease with esophagitis, without bleeding; E03.9 Hypothyroidism, unspecified; E87.6 Hypokalemia; I25.10 Atherosclerotic heart disease of native coronary artery without angina pectoris; Z79.890 Hormone replacement therapy; Z79.899 Other long term (current) drug therapy; Z88.2 Allergy status to sulfonamides; Z91.011 Allergy to milk products; Z91.018 Allergy to other foods; Z95.4 Presence of other heart-valve replacement
CPT/HCPCS: 36415; 71046; 80048; 80053; 82270; 82550; 82728; 83540; 83550; 83615; 83735; 84484; 85014; 85018; 85025; 93005; 93010; 96365; 96366; 96375; 96376; 97161-GP; 99217; 99220; 99225; A9270-GY; C9113; G0378; J1756; J3480; J7050

== ENCOUNTER 2021-08-24 08:55 | Emergency (ER) | payer MEDICARE, OTHER ==
[2021-08-24] MEDS ORDERED: Alum Hydrox/Mag Hydrox/Simeth 30 ML, Lidocaine 2% 15 ML PO ONE ×2 (09:13)
[2021-08-24] MEDS ORDERED: Ondansetron 4 MG Tab.DIS PO ONE (09:20)
--- NOTE | 2021-08-24 09:27 | EDM.PDOC ---
ED HPI GENERAL MEDICAL PROBLEM - General Chief Complaint: Abdominal Pain Stated Complaint: ABD PAIN/VOMITTING Time Seen by Provider: 08/24/21 09:10 Source of Information: Reports: Patient, Family () History Limitations: Reports: No Limitations - History of Present Illness INITIAL COMMENTS - FREE TEXT/NARRATIVE: Pt states that she was having an EGD on Tuesday in [place] because she was having choking episodes. During the EGD she had cardiac arrest and had 2 stents placed. She was discharged from there yesterday. She started to develop abdominal pain and vomiting during the night and because it was getting worse came to the ER this morning. She does not think that she has had a fever with it. Las BM was yesterday and she states that it was normal. Has not had anything to eat or drink this AM. She did eat a sandwich for supper last evening without any difficulty. She is vomiting clear to white mucus and was concerned about some dark flecks in it as she has had GI bleeding and anemia in the past. She states that her chest and upper back still hurt from where they did CPR on her Tuesday but not any other chest pain. She does have some chronic low back pain. She states that her abdomen is more distended this AM and she is having pain mid epigastric and lower. No choking episodes. Sips of water that she has tried go down without difficulty, but she has been vomiting most of it up. No diarrhea or BM this AM. Onset: Today Location: Reports: Abdomen, Generalized Upper Mid-Anterior Abdomen Pain Score (Numeric/FACES): 8 - Related Data Allergies Allergy/AdvReac Type Severity Reaction Status Date / Time clonidine Allergy Other Verified 08/24/21 11:14 Sulfa (Sulfonamide Allergy Hives Verified 08/24/21 11:14 Antibiotics) thiopental sodium Allergy Shortness Verified 08/24/21 11:14 [From Pentothal] of Breath corn AdvReac Muscle Verified 08/24/21 11:14 Aches Dairy Products AdvReac Muscle Verified 08/24/21 11:14 Aches gluten AdvReac Muscle Verified 08/24/21 11:14 Aches soy AdvReac Muscle Verified 08/24/21 11:14 Aches Svtnznl-Txh-Ehy Reductase AdvReac Muscle Verified 08/24/21 11:14 Inhibitor Aches Home Meds: Home Meds Levothyroxine [Synthroid] 100 mcg PO ACBREAKFAST 07/31/15 [History] rOPINIRole HCl [Requip] 0.5 mg PO TID 07/31/15 [History] Albuterol Sulfate [Proair Respiclick] 1 - 2 puff INH Q4HR PRN 09/16/16 [History] Ascorbic Acid [Vitamin C] 1,000 mg PO BID 12/28/17 [History] Cholecalciferol (Vitamin D3) [Vitamin D3] 2,000 unit PO BID 12/28/17 [History] Lactobacillus Acidophilus [Acidophilus] 1,000 mg PO BID 12/28/17 [History] Cetirizine [ZyrTEC] 10 mg PO BID 01/07/20 [History] Metoprolol Tartrate 50 mg PO BID 01/07/20 [History] Albuterol Sulfate 1 inh INH QID PRN 06/22/21 [History] Budesonide/Formoterol Fumarate [Symbicort 160-4.5 Mcg Inhaler] 2 inh INH DAILY 06/22/21 [History] Calcium Carb/Vit D3/Minerals [Calcium 600+D Plus Minerals] 4 tab PO DAILY 06/22/21 [History] Diclofenac Sodium [Diclo Gel] 1 applic TOP TID PRN 06/22/21 [History] Escitalopram Oxalate 10 mg PO DAILY 06/22/21 [History] Carver Reeves [Carver Berries] 1 tab PO ASDIRECTED 06/22/21 [History] Lutein 20 mg PO DAILY 06/22/21 [History] Magnesium 200 mg PO ASDIRECTED 06/22/21 [History] Montelukast Sodium 10 mg PO BEDTIME 06/22/21 [History] Selenium 100 mcg PO BID 06/22/21 [History] Zinc 50 mg PO DAILY 06/22/21 [History] traMADol HCl [Tramadol HCl] 25 mg PO Q6H PRN 06/22/21 [History] Aspirin [Aspirin EC] 81 mg PO DAILY 06/23/21 [History] Cider Vinegar [Apple Cider Vinegar] 1,250 mg PO TID 06/23/21 [History] Docusate Sodium [Colace] 100 mg PO DAILY 06/23/21 [History] Licorice,Deglycyrrhizinated [Deglycyrrhizinated Licorice] 1 cap PO TID 06/23/21 [History] Potassium Gluconate 2 meq PO TID #90 tablet 06/24/21 [Rx] amLODIPine Besylate [Norvasc] 10 mg PO BEDTIME #30 tablet 06/24/21 [Rx] Acetaminophen [Pain Relief] 650 mg PO Q6H PRN 08/24/21 [History] Amoxicillin/Potassium Clav [Amox-Clav 875-125 mg Tablet] 1 tab PO BID 08/24/21 [History] Clopidogrel Bisulfate [Plavix] 75 mg PO DAILY 08/24/21 [History] Esomeprazole Magnesium [Nexium] 40 mg PO BID 08/24/21 [History] Levalbuterol HCl 1 inh INH Q4H PRN 08/24/21 [History] Teriparatide 2.48 ml SQ DAILY 08/24/21 [History] lisinopriL [Lisinopril] 5 mg PO DAILY 08/24/21 [History] predniSONE [Prednisone] 40 mg PO DAILY 08/24/21 [History] Past Medical History HEENT History: Reports: Impaired Vision Cardiovascular History: Reports: Heart Murmur, Heart Valve Replacement, High Cholesterol, Hypertension, Stents Other Cardiovascular History: aortic valve stenosis; had a valve that was malfunctioning, "racing heart", patient requested that they do it through [facility] procedure;. Cardiac arrest and stents 09/03 Respiratory History: Reports: Asthma Other Respiratory History: recent pneumonia dx by [facility] Gastrointestinal History: Reports: None Genitourinary History: Reports: Urinary Incontinence [employer] History: Reports: Musculoskeletal History: Reports: Arthritis, Other (See Below) Other Musculoskeletal History: pelvic fracture Neurological History: Reports: CVA, Neuropathy, Peripheral, Other (See Below) Other Neuro History: benign tremor Psychiatric History: Reports: Anxiety, Depression Other Psychiatric History: says she has some depression; 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, 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, worked in [employer] Endocrine/Metabolic History: Reports: Hypothyroidism, Vitamin D Deficiency Hematologic History: Reports: Blood Transfusion(s) - Past Surgical History HEENT Surgical History: Reports: Cataract Surgery, Tonsillectomy Cardiovascular Surgical History: Reports: Valve Replacement Other Cardiovascular Surgeries/Procedures: said she has some asthma like symptoms for years, better since AVR; has had some cp since surgery, but not correlated with anything she is doing, denies SOB since, appetite good; went through groin area, healing; said her BP at home has been low, around 96/60; Respiratory Surgical History: Reports: None GI Surgical History: Reports: Colonoscopy, EGD Female Surgical History: Reports: Section, D&C, Hysterectomy Endocrine Surgical History: Reports: None Neurological Surgical History: Reports: None Musculoskeletal Surgical History: Reports: Hip Replacement Dermatological Surgical History: Reports: None Social & Family History - Family History Family Medical History: No Pertinent Family History - Caffeine Use Caffeine Use: Reports: None - Living Situation & Occupation Living situation: Reports: , with Spouse Occupation: Retired ED ROS GENERAL - Review of Systems Review Of Systems: See Below Constitutional: Reports: Weakness, Decreased Appetite. Denies: Fever HEENT: Reports: No Symptoms Respiratory: Reports: No Symptoms Cardiovascular: Reports: Other (chest hurts from previous CPR) GI/Abdominal: Reports: Abdominal Pain, Anorexia, Decreased Appetite, Nausea, Vomiting. Denies: Black Stool, Bloody Stool, Constipation, Diarrhea, Hematemesis Musculoskeletal: Reports: Back Pain Skin: Reports: No Symptoms Neurological: Reports: No Symptoms ED EXAM, GI/ABD - Physical Exam Exam: See Below Exam Limited By: No Limitations General Appearance: Alert, WD/WN, Moderate Distress Ears: Normal External Exam, Normal TMs Throat/Mouth: Normal Inspection, Normal Oropharynx Head: Atraumatic, Normocephalic Neck: Normal Inspection, Supple, Non-Tender Respiratory/Chest: No Respiratory Distress, Lungs Clear Cardiovascular: Regular Rate, Rhythm, No Edema GI/Abdominal Exam: Distended, Tender, Abnormal Bowel Sounds (few Bowel sounds are heard to the lower abdomen. None heard in the upper quadrants.) Back Exam: Normal Inspection, Other (tender to the shoulder blade area and to the low back.) Extremities: No Pedal Edema Neurological: Alert, Oriented Skin Exam: Warm, Dry, Intact Course - Vital Signs Last Recorded V/S: Last Vital Signs Temp 96.9 F 08/24/21 11:47 Pulse 67 08/24/21 11:47 Resp 18 08/24/21 11:47 BP 163/96 H 08/24/21 11:47 Pulse Ox 97 08/24/21 11:47 - Orders/Labs/Meds Orders: Active Orders 24 hr Category Date Time Status Nothing Per Oral Diet [DIET] Diet 08/24/21 Dinner Active Abdomen Pelvis w Cont [CT] Stat Exams 08/24/21 10:12 Taken Abdomen Series w Chest 1V [CR] Stat Exams 08/24/21 09:13 Taken Sodium Chloride 0.45% 1,000 ml Med 08/24/21 12:30 Active IV ASDIRECTED Medication Orders Sodium Chloride (Sodium Chloride 0.45%) 1,000 mls @ 100 mls/hr IV ASDIRECTED FLASH Last Admin: 08/24/21 12:29 Dose: 100 mls/hr Documented by: NOREEN Labs: Laboratory Tests 08/24/21 08/24/21 08/24/21 Range/Units 09:23 09:23 09:23 WBC 16.9 H (4.0-11.0) 10^3/uL RBC 5.13 (4.00-5.50) x10^6/uL Hgb 13.3 (12.0-16.0) g/dL Hct 41.9 (37.0-47.0) % MCV 81.7 L (83.0-97.0) fL MCH 25.9 L (27.0-32.0) pg MCHC 31.7 L (32.0-36.0) g/dL RDW Coeff of Bryson 19.1 H (11.0-15.0) % Plt Count 426 H (150-400) 10^3/uL Immature Gran % (Auto) 0.2 (0.0-4.9) % Neut % (Auto) 81.4 H (41-71) % Lymph % (Auto) 5.1 L (24-44) % Elliott % (Auto) 12.9 H (0-10) % Eos % (Auto) 0.2 (0-6) % Baso % (Auto) 0.2 (0-1) % Neut # (Auto) 13.77 H (1.80-8.00) x10^3/uL Lymph # (Auto) 0.86 (0.60-5.00) 10^3/uL Elliott # (Auto) 2.18 H (0.00-1.50) 10^3/uL Eos # (Auto) 0.04 (0.00-1.50) 10^3/uL Baso # (Auto) 0.03 (0.00-0.50) 10^3/uL Immature Gran # (Auto) 0.04 (0.00-0.49) 10^3/uL PT 10.7 (9.7-12.3) SEC INR 0.98 (0.92-1.18) APTT 23.6 (23.2-32.3) SEC Sodium 136 (136-145) mEq/L Potassium 3.5 (3.5-5.0) mEq/L Chloride 95 L (98-106) mEq/L Carbon Dioxide 32 (21-32) mmol/L BUN 14 D (7-18) mg/dL Creatinine 0.5 L (0.6-1.0) mg/dL Est Cr Clr Drug Dosing 85.24 mL/min Estimated GFR (MDRD) > 60 (>=60) mL/min Glucose 152 H D (75-99) mg/dL Calcium 9.1 (8.4-10.1) mg/dL Magnesium 1.7 L (1.8-2.4) mg/dL Total Bilirubin 0.4 (0.0-1.0) mg/dL AST 27 (15-37) U/L ALT 44 (12-78) U/L Alkaline Phosphatase 120 H (46-116) U/L Lactate Dehydrogenase 264 H (100-190) U/L Creatine Kinase 84 (21-215) U/L Troponin I High Sens 793.5 H* (<=51) pg/mL Total Protein 8.0 (6.4-8.2) g/dL Albumin 3.6 (3.4-5.0) g/dL Lipase 94 (73-393) U/L Meds: Medications Generic Name Dose Route Start Last Admin Trade Name Freaugustin PRN Reason Stop Dose Admin Sodium Chloride 1,000 mls @ 100 mls/hr 08/24/21 12:30 08/24/21 12:29 Sodium Chloride 0.45% IV 100 mls/hr ASDIRECTED FLASH Administration Discontinued Medications Generic Name Dose Route Start Last Admin Trade Name Freq PRN Reason Stop Dose Admin Amlodipine Besylate 10 mg 08/24/21 09:31 08/24/21 09:42 Amlodipine 10 Mg Tab PO 08/24/21 09:32 10 mg STAT STA Administration Al Hydroxide/Mg Hydroxide 30 0 ml 08/24/21 09:13 08/24/21 09:17 ml/ Lidocaine HCl 15 ml PO 08/24/21 09:14 45 ml ONETIME ONE Administration Iopamidol 100 ml 08/24/21 10:15 08/24/21 10:16 Iopamidol 755 Mg/Ml 100 Ml Bottle IVPUSH 08/24/21 10:16 100 ml ONETIME ONE Administration Lisinopril 5 mg 08/24/21 09:30 08/24/21 09:42 Lisinopril 5 Mg Tab PO 08/24/21 09:31 5 mg ONETIME ONE Administration Metoprolol Tartrate 50 mg 08/24/21 09:32 08/24/21 09:42 Metoprolol Tartrate 50 Mg Tab PO 08/24/21 09:33 50 mg ONETIME ONE Administration Ondansetron HCl 4 mg 08/24/21 09:20 08/24/21 09:29 Ondansetron 4 Mg Tab.Dis PO 08/24/21 09:21 4 mg ONETIME ONE Administration - Re-Assessments/Exams Free Text/Narrative Re-Assessment/Exam: 08/24/21 [address] call [address]ology with CT report of volvulus in cecum. [address] [facility] contacted and discussed pt with Dr. Etienne who states that it is a surgical emergency but they have no beds [id number] contacted and they will get back to me regarding a bed available [id number] is able to accept the pt and she will be sent ALS ground ambulance. Dr. Cummins is accepting MD Risks of transfer were discussed with the pt and to include worsening of her condition enroute and difficulty with pain control, MVC enroute. Benefit of transfer include surgery staff and ICU. Benefits of non transfer include staying close to home. Risk of non transfer would be worsening of her her condition and pain control and possible . They do agree to transfer. Departure - Departure Time of Disposition: 13:36 Disposition: DC/Tfer to Acute Hospital 02 Condition: Serious Clinical Impression: Cecal volvulus - Discharge Information *PRESCRIPTION DRUG MONITORING PROGRAM REVIEWED*: Not Applicable *COPY OF PRESCRIPTION DRUG MONITORING REPORT IN PATIENT KANDICE: Not Applicable Forms: ED Department Discharge Additional Instructions: Transfer ALS ambulance to [facility]. Dr. Cummins accepting to the ER. IV 1/2 NS @ 100 ml/hr pain meds as needed in route for comfort NPO Sepsis Event Note (ED) - Evaluation Sepsis Screening Result: No Definite Risk - Focused Exam Vital Signs: Vital Signs Temp Pulse Pulse Resp BP BP Pulse Ox 08/24/21 11:47 96.9 F 67 18 163/96 H 97 08/24/21 10:35 95 08/24/21 10:30 97.5 F 89 16 177/102 H 87 L 08/24/21 10:20 74 176/102 H 08/24/21 09:59 85 22 H 178/114 H 92 L 08/24/21 09:46 98.1 F 70 16 201/114 H 93 L 08/24/21 09:42 82 188/117 H 08/24/21 09:15 82 24 H 188/117 H 08/24/21 08:55 97.3 F 101 H 18 190/109 H 92 L - Problem List & Annotations (1) Cecal volvulus SNOMED Code(s): 488707995 Code(s): K56.2 - VOLVULUS Status: Acute Priority: High Current Visit: Yes - Problem List Review Problem List Initiated/Reviewed/Updated: Yes - My Orders Last 24 Hours: My Active Orders 08/24/21 09:13 Abdomen Series w Chest 1V [CR] Stat 08/24/21 10:12 Abdomen Pelvis w Cont [CT] Stat 08/24/21 12:30 Sodium Chloride 0.45% 1,000 ml IV ASDIRECTED 08/24/21 Dinner Nothing Per Oral Diet [DIET] - Assessment/Plan Last 24 Hours: My Active Orders 08/24/21 09:13 Abdomen Series w Chest 1V [CR] Stat 08/24/21 10:12 Abdomen Pelvis w Cont [CT] Stat 08/24/21 12:30 Sodium Chloride 0.45% 1,000 ml IV ASDIRECTED 08/24/21 Dinner Nothing Per Oral Diet [DIET]
[2021-08-24] MEDS ORDERED: Lisinopril 5 MG Tab PO ONE (09:30)
[2021-08-24] MEDS ORDERED: amLODIPine 10 MG Tab PO STA (09:31)
[2021-08-24] MEDS ORDERED: Metoprolol Tartrate 50 MG Tab PO ONE (09:32)
[2021-08-24 09:39] LABS: CHLORIDE,CL 95 mEq/L (98-106); SODIUM,NA 136 mEq/L (136-145)
[2021-08-24 09:41] LABS: PTT,PARTIAL THROMBOPLSTIN TIME 23.6 SEC (23.2-32.3)
[2021-08-24] MEDS ORDERED: Iopamidol 755 Mg/ML 100 ML Bottle IVPUSH ONE (10:15)
[2021-08-24] MEDS ORDERED: Sodium Chloride 0.45% 1,000 ML IV SCH (12:30)
[2021-08-24] MEDS ORDERED: metroNIDAZOLE/Normal Saline 500 MG in Premix Bag 1 BAG IV ONE (13:23)
[2021-08-24] MEDS ORDERED: cefTRIAXone 1 GM Vial IM ONE (13:23)
[2021-08-24 13:26] VITALS: BP 150/78; PULSE 70
[2021-08-24] MEDS ORDERED: Sodium Chloride 0.9% 1,000 ML IV SCH (13:30)
[2021-08-24] MEDS ORDERED: fentaNYL 50 MCG/ML SDV IVPUSH ONE (13:34)
== END 2021-08-24 14:25 ==
LOC: CC.ED 08:55
DX: K56.2 Volvulus (principal); E78.00 Pure hypercholesterolemia, unspecified; I10 Essential (primary) hypertension; E03.9 Hypothyroidism, unspecified; Z88.2 Allergy status to sulfonamides; Z91.018 Allergy to other foods; Z91.011 Allergy to milk products; Z88.8 Allergy status to other drugs, medicaments and biological substances; Z79.899 Other long term (current) drug therapy; Z79.82 Long term (current) use of aspirin
CPT/HCPCS: 36415; 74022; 74177; 80053; 82550; 83615; 83690; 83735; 84484; 85025; 85610; 85730; 93005; 96365; 96372; 96375; 99284; 99285-25; A9270-GY; J0696; J3010; J3490; J7030; Q9967

== ENCOUNTER 2022-02-12 12:45 | Observation (INO) | payer MEDICARE, OTHER ==
[2022-02-12 13:32] LABS: CHLORIDE,CL 91 mEq/L (98-106); SODIUM,NA 128 mEq/L (136-145)
[2022-02-12] MEDS ORDERED: Sodium Chloride 0.9% 1,000 ML IV SCH (13:45)
[2022-02-12] MEDS ORDERED: Non-Formulary Medication 1 Each (Albuterol Sulfate [Proair Respiclick] 90 MCG Aer.Pow.Ba) INH PRN (16:58)
[2022-02-12] MEDS ORDERED: Acetaminophen 325 MG Tab PO PRN (16:58)
[2022-02-12] MEDS ORDERED: DICLOFENAC SODIUM TOP PRN (16:58)
[2022-02-12] MEDS: CARVEDILOL 6.25 MG PO SCH (19:59)
[2022-02-12] MEDS: ESOMEPRAZOLE MAGNESIUM 40 MG PO SCH (20:00)
[2022-02-12] MEDS ORDERED: MONTELUKAST 10 MG PO SCH (20:00)
[2022-02-12] MEDS ORDERED: POTASSIUM GLUCONATE PO SCH (20:00)
[2022-02-12] MEDS: Ascorbic Acid 500 MG Tab PO SCH (20:03)
[2022-02-12] MEDS: Lactobacillus Rhamnosus GG (Probiotic) Cap PO SCH (20:03)
[2022-02-12] MEDS ORDERED: Lisinopril 10 MG Tab PO ONE (20:54)
[2022-02-12] MEDS ORDERED: amLODIPine 2.5 MG Tab PO ONE (22:17)
[2022-02-13 07:30] LABS: CHLORIDE,CL 97 mEq/L (98-106); SODIUM,NA 133 mEq/L (136-145)
[2022-02-13] MEDS: CARVEDILOL 6.25 MG PO SCH (07:54)
[2022-02-13] MEDS: ESOMEPRAZOLE MAGNESIUM 40 MG PO SCH (07:54)
[2022-02-13] MEDS: Lactobacillus Rhamnosus GG (Probiotic) Cap PO SCH (07:59)
[2022-02-13] MEDS: Ascorbic Acid 500 MG Tab PO SCH (07:59)
[2022-02-13 08:00] VITALS: BP 169/82; PULSE 63
[2022-02-13] MEDS ORDERED: ESCITALOPRAM OXALATE 10 MG PO SCH (08:00)
[2022-02-13] MEDS ORDERED: Calcium Carbonate/Vitamin D3 1250 MG-5 MCG Tab PO SCH (08:00)
[2022-02-13] MEDS ORDERED: Clopidogrel 75 MG Tab **PTOM PO SCH (08:00)
[2022-02-13] MEDS ORDERED: Docusate Sodium 100 MG Cap PO SCH (08:00)
[2022-02-13] MEDS ORDERED: Cholecalciferol (Vitamin D3) 25 MCG Tab PO SCH (08:00)
[2022-02-13] MEDS ORDERED: Non-Formulary Medication 1 Each (Budesonide/Formoterol Fumarate 6 GM Hfa.Aer.Ad) INH SCH (08:00)
[2022-02-13] MEDS ORDERED: Aspirin 81 MG Tab.Chew PO SCH (08:00)
[2022-02-15] MEDS ORDERED: ROSUVASTATIN 5 MG PO SCH (08:00)
== END 2022-02-13 10:47 | disposition home or self-care (01) ==
LOC: CC.ED 12:45 → UNDOADMOB 13:49 → CC.MS 13:49
PROVIDERS: ADMIT Nurse Practitioner Family; ATTEND Nurse Practitioner Family
DX: R53.1 Weakness (principal); E87.1 Hypo-osmolality and hyponatremia; E55.9 Vitamin D deficiency, unspecified; H54.7 Unspecified visual loss; E78.00 Pure hypercholesterolemia, unspecified; I10 Essential (primary) hypertension; M19.90 Unspecified osteoarthritis, unspecified site; E03.9 Hypothyroidism, unspecified; J45.909 Unspecified asthma, uncomplicated; F41.9 Anxiety disorder, unspecified; F32.A Depression, unspecified; Z95.5 Presence of coronary angioplasty implant and graft; Z88.8 Allergy status to other drugs, medicaments and biological substances; Z88.4 Allergy status to anesthetic agent; Z91.018 Allergy to other foods; Z91.011 Allergy to milk products; Z20.822 Contact with and (suspected) exposure to COVID-19; Z90.89 Acquired absence of other organs; Z98.890 Other specified postprocedural states; Z79.890 Hormone replacement therapy; Z79.82 Long term (current) use of aspirin; Z79.02 Long term (current) use of antithrombotics/antiplatelets; Z79.52 Long term (current) use of systemic steroids; Z86.73 Personal history of transient ischemic attack (TIA), and cerebral infarction without residual deficits; Z79.899 Other long term (current) drug therapy
CPT/HCPCS: 36415; 80048; 80053; 84484; 85025; 93005; 99217; 99220; 99285; A9270-GY; G0378; J7030; U0002

== ENCOUNTER 2022-03-29 13:41 | Emergency (ER) | payer MEDICARE, OTHER ==
[2022-03-29 14:17] LABS: CHLORIDE,CL 93 mEq/L (98-106); SODIUM,NA 132 mEq/L (136-145)
[2022-03-29] MEDS: Iopamidol 755 Mg/ML 100 ML Bottle IVPUSH ONE (15:11)
[2022-03-29 17:12] VITALS: BP 143/79; PULSE 79
== END 2022-03-29 17:12 | disposition home or self-care (01) ==
LOC: CC.ED 13:41
DX: G45.9 Transient cerebral ischemic attack, unspecified (principal); E78.00 Pure hypercholesterolemia, unspecified; J45.909 Unspecified asthma, uncomplicated; E03.9 Hypothyroidism, unspecified; I10 Essential (primary) hypertension; Z86.73 Personal history of transient ischemic attack (TIA), and cerebral infarction without residual deficits; Z90.710 Acquired absence of both cervix and uterus; Z79.899 Other long term (current) drug therapy; Z79.82 Long term (current) use of aspirin; Z88.8 Allergy status to other drugs, medicaments and biological substances; Z88.2 Allergy status to sulfonamides; Z91.011 Allergy to milk products; Z91.018 Allergy to other foods
CPT/HCPCS: 36415; 70450; 70496; 70498; 80053; 81001; 85025; 86140; 99284-25; Q9967

== ENCOUNTER 2022-05-16 01:00 | Inpatient (IN) | payer MEDICARE, OTHER ==
[2022-05-16 02:22] LABS: AMPHETAMINES,URINE NEGATIVE (NEGATIVE); BARBITURATES,URINE NEGATIVE (NEGATIVE); BENZODIAZEPINE,URINE NEGATIVE (NEGATIVE); MDMA (ECSTASY), URINE NEGATIVE (NEGATIVE); METHADONE,URINE NEGATIVE (NEGATIVE); METHAMPHETAMINES,URINE NEGATIVE (NEGATIVE); OPIATES,URINE NEGATIVE (NEGATIVE); OXYCODONE,URINE NEGATIVE (NEGATIVE); PHENCYCLIDINE,URINE NEGATIVE (NEGATIVE); TCA,URINE NEGATIVE (NEGATIVE)
[2022-05-16] MEDS ORDERED: Sodium Chloride 0.9% 10 ML Syringe FLUSH PRN (03:17)
[2022-05-16] MEDS ORDERED: Ondansetron 4 MG Tab.DIS PO PRN (03:17)
[2022-05-16] MEDS ORDERED: Ondansetron 4 MG/2 ML SDV IV PRN (03:17)
[2022-05-16] MEDS ORDERED: Acetaminophen 325 MG Tab PO PRN (03:17)
[2022-05-16] MEDS ORDERED: Enoxaparin 30 MG/0.3 ML Syringe SUBCUT SCH (03:17)
[2022-05-16] MEDS ORDERED: Albuterol 8 GM Inhaler INH PRN (03:46)
[2022-05-16] MEDS ORDERED: AMLODIPINE 10 MG PO PRN (03:49)
[2022-05-16] MEDS: Formoterol/Mometasone 200-5 MCG 8.8 GM Inhaler IH SCH ×2 (07:56→19:38)
[2022-05-16] MEDS: Enoxaparin 40 MG/0.4 ML Syringe SUBCUT SCH (07:57)
[2022-05-16] MEDS: Cholecalciferol (Vitamin D3) 25 MCG Tab PO SCH (07:57)
[2022-05-16] MEDS: Docusate Sodium 100 MG Cap PO SCH ×2 (07:58→19:40)
[2022-05-16] MEDS: Aspirin 81 MG Tab.Chew PO SCH (07:58)
[2022-05-16] MEDS: Lactobacillus Rhamnosus GG (Probiotic) Cap PO SCH ×2 (07:58→19:40)
[2022-05-16] MEDS: LEVOTHYROXINE 100 MCG PO SCH (07:58)
[2022-05-16] MEDS: Loratadine 10 MG Tab PO SCH ×2 (07:58→19:40)
[2022-05-16] MEDS: Carvedilol 6.25 MG Tab ***OWN MED PO SCH ×2 (07:59→19:48)
[2022-05-16] MEDS ORDERED: Potassium Gluconate (99 MG) 2 MEQ Tab PO SCH (08:00)
[2022-05-16] MEDS: CLOPIDOGREL 75 MG PO SCH (08:01)
[2022-05-16] MEDS: ESOMEPRAZOLE MAGNESIUM 40 MG PO SCH ×2 (08:01→19:38)
[2022-05-16] MEDS: ROPINIROLE 0.25 MG PO SCH ×3 (08:01→19:38)
[2022-05-16] MEDS: traMADol 50 MG Tab PO PRN ×2 (08:24→16:21)
[2022-05-16] MEDS: TERIPARATIDE SQ SCH (09:04)
[2022-05-16] MEDS ORDERED: MONTELUKAST 10 MG PO SCH (20:00)
[2022-05-17] MEDS: traMADol 50 MG Tab PO PRN ×2 (02:18→09:56)
[2022-05-17] MEDS: LEVOTHYROXINE 100 MCG PO SCH (06:02)
[2022-05-17] MEDS: Aspirin 81 MG Tab.Chew PO SCH (07:23)
[2022-05-17] MEDS: Cholecalciferol (Vitamin D3) 25 MCG Tab PO SCH (07:23)
[2022-05-17] MEDS: Lactobacillus Rhamnosus GG (Probiotic) Cap PO SCH ×2 (07:23→19:38)
[2022-05-17] MEDS: Loratadine 10 MG Tab PO SCH ×2 (07:23→19:38)
[2022-05-17] MEDS: Enoxaparin 40 MG/0.4 ML Syringe SUBCUT SCH (07:23)
[2022-05-17] MEDS: Docusate Sodium 100 MG Cap PO SCH ×2 (07:23→19:38)
[2022-05-17] MEDS: TERIPARATIDE SQ SCH (07:29)
[2022-05-17] MEDS: Carvedilol 6.25 MG Tab ***OWN MED PO SCH (09:56)
[2022-05-17] MEDS: Formoterol/Mometasone 200-5 MCG 8.8 GM Inhaler IH SCH ×2 (09:56→19:38)
[2022-05-17] MEDS: ROSUVASTATIN 5 MG PO SCH (09:57)
[2022-05-17] MEDS: ROPINIROLE 0.25 MG PO SCH ×2 (09:57→13:48)
[2022-05-17] MEDS: ESOMEPRAZOLE MAGNESIUM 40 MG PO SCH ×2 (09:57→19:38)
[2022-05-17] MEDS: CLOPIDOGREL 75 MG PO SCH (09:57)
[2022-05-17] MEDS ORDERED: amLODIPine 10 MG Tab PO PRN (14:29)
[2022-05-17] MEDS: rOPINIRole 0.25 MG Tab PO SCH (19:38)
[2022-05-17] MEDS: Montelukast 10 MG Tab PO SCH (19:39)
[2022-05-17] MEDS: Carvedilol 6.25 MG Tab PO SCH (19:44)
[2022-05-17] MEDS ORDERED: guaiFENesin/Dextromethorphan 100-10 MG/5 ML Soln 5 ML Cup PO PRN (21:16)
[2022-05-18] MEDS: Levothyroxine 100 MCG Tab PO SCH (06:42)
[2022-05-18] MEDS: Enoxaparin 40 MG/0.4 ML Syringe SUBCUT SCH (07:19)
[2022-05-18] MEDS: Carvedilol 6.25 MG Tab PO SCH ×2 (07:20→20:16)
[2022-05-18] MEDS: rOPINIRole 0.25 MG Tab PO SCH ×3 (07:20→20:16)
[2022-05-18] MEDS: Cholecalciferol (Vitamin D3) 25 MCG Tab PO SCH (07:21)
[2022-05-18] MEDS: Lactobacillus Rhamnosus GG (Probiotic) Cap PO SCH ×2 (07:21→20:16)
[2022-05-18] MEDS: Loratadine 10 MG Tab PO SCH ×2 (07:21→20:16)
[2022-05-18] MEDS: Clopidogrel 75 MG Tab PO SCH (07:21)
[2022-05-18] MEDS: Docusate Sodium 100 MG Cap PO SCH ×2 (07:21→20:16)
[2022-05-18] MEDS: Losartan 25 MG Tab PO SCH (07:21)
[2022-05-18] MEDS: ESOMEPRAZOLE MAGNESIUM 40 MG PO SCH ×2 (07:22→20:32)
[2022-05-18] MEDS: TERIPARATIDE SQ SCH (07:23)
[2022-05-18] MEDS: Formoterol/Mometasone 200-5 MCG 8.8 GM Inhaler IH SCH ×2 (07:50→20:25)
[2022-05-18] MEDS: Aspirin 81 MG Tab.Chew PO SCH (08:30)
[2022-05-18] MEDS: Montelukast 10 MG Tab PO SCH (20:16)
[2022-05-19] MEDS: traMADol 50 MG Tab PO PRN (03:04)
[2022-05-19] MEDS: Aspirin 81 MG Tab.Chew PO SCH (07:45)
[2022-05-19] MEDS: rOPINIRole 0.25 MG Tab PO SCH (07:46)
[2022-05-19] MEDS: Lactobacillus Rhamnosus GG (Probiotic) Cap PO SCH (07:46)
[2022-05-19] MEDS: Levothyroxine 100 MCG Tab PO SCH (07:46)
[2022-05-19] MEDS: Enoxaparin 40 MG/0.4 ML Syringe SUBCUT SCH (07:46)
[2022-05-19] MEDS: Losartan 25 MG Tab PO SCH (07:46)
[2022-05-19] MEDS: Cholecalciferol (Vitamin D3) 25 MCG Tab PO SCH (07:46)
[2022-05-19] MEDS: Carvedilol 6.25 MG Tab PO SCH (07:46)
[2022-05-19] MEDS: Docusate Sodium 100 MG Cap PO SCH (07:46)
[2022-05-19] MEDS: Loratadine 10 MG Tab PO SCH (07:46)
[2022-05-19] MEDS: Clopidogrel 75 MG Tab PO SCH (07:46)
[2022-05-19] MEDS: Formoterol/Mometasone 200-5 MCG 8.8 GM Inhaler IH SCH (07:47)
[2022-05-19] MEDS: ESOMEPRAZOLE MAGNESIUM 40 MG PO SCH (07:47)
[2022-05-19] MEDS: TERIPARATIDE SQ SCH (07:47)
[2022-05-19] MEDS: ROSUVASTATIN 5 MG PO SCH (10:25)
[2022-05-19 12:40] VITALS: BP 133/79; PULSE 81
== END 2022-05-19 14:46 | disposition home health service (06) | DRG 811 ==
LOC: CC.ED 01:00 → CC.MS 02:20 → OBSVTOIN 05-17 10:13
PROVIDERS: ADMIT Nurse Practitioner Family; ATTEND Nurse Practitioner Family
PROC: 8E0ZXY6 Isolation (ICD-10-PCS; principal; 2022-05-16)
DX: D50.9 Iron deficiency anemia, unspecified (principal); R53.1 Weakness; U07.1 COVID-19; D64.9 Anemia, unspecified; E87.1 Hypo-osmolality and hyponatremia; E78.00 Pure hypercholesterolemia, unspecified; E78.5 Hyperlipidemia, unspecified; J45.909 Unspecified asthma, uncomplicated; F41.9 Anxiety disorder, unspecified; R32 Unspecified urinary incontinence; M19.90 Unspecified osteoarthritis, unspecified site; F32.A Depression, unspecified; E03.9 Hypothyroidism, unspecified; G62.9 Polyneuropathy, unspecified; I10 Essential (primary) hypertension; Z79.899 Other long term (current) drug therapy; E55.9 Vitamin D deficiency, unspecified; Z91.011 Allergy to milk products; Z88.2 Allergy status to sulfonamides; Z88.8 Allergy status to other drugs, medicaments and biological substances; Z91.018 Allergy to other foods; Z79.02 Long term (current) use of antithrombotics/antiplatelets; Z79.890 Hormone replacement therapy; Z79.52 Long term (current) use of systemic steroids; Z79.82 Long term (current) use of aspirin; Z79.01 Long term (current) use of anticoagulants; Z95.2 Presence of prosthetic heart valve; Z95.5 Presence of coronary angioplasty implant and graft; Z87.01 Personal history of pneumonia (recurrent); Z86.73 Personal history of transient ischemic attack (TIA), and cerebral infarction without residual deficits; Z98.42 Cataract extraction status, left eye; Z98.41 Cataract extraction status, right eye; Z90.89 Acquired absence of other organs; Z90.710 Acquired absence of both cervix and uterus; Z98.890 Other specified postprocedural states
CPT/HCPCS: 36415 ×2; 51701 ×2; 70450; 71045; 80053 ×2; 80305; 81001; 84484; 85025 ×2; 86140 ×2; 87804 ×2; 93005; 99285; A9270 ×40; J1650 ×2; U0002; 80048; 96372; 97161-GP; 99220; 99232; 99233; 99238; G0378